=== PATIENT | female | born 1935 | race Caucasian/White ===

== ENCOUNTER 2016-09-09 21:15 | Inpatient (IN) | payer MEDICARE ==
[2016-09-09] MEDS ORDERED: ONDANSETRON HCL IV 4 MG/2 ML VIAL IVP ONE (21:35)
[2016-09-09] MEDS ORDERED: 0.9 % SODIUM CHLORIDE 1,000 ML BAG IV ONE (21:35)
--- NOTE | 2016-09-09 21:36 | Emergency Department Record ---
History of Present Illness - General Chief Complaint: Fall Injury Stated Complaint: FALL INJURY Time Seen by Provider: 09/09/16 21:21 Source: Patient Mode of Arrival: Ambulatory Limitations: No limitations - History of Present Illness Initial Comments: 81 yo female presents after a fall at [facility]. She was in the bathroom and loosed her balance. No LOC. She did hit the back of her head and has a superficial abrasion on the back. She denies pain. She states she has not felt well today. She has had some diarrhea and vomiting. No fever. No chest pain or cough. No shortness of breath. She denies any abdominal pain. Complaint: Fall Onset/Timin -: Minutes(s) Fall From: Standing Fall Witnessed: No Place Fall Occurred: alf/SNF Loss of Consciousness: None Prolonged Down Time?: No Symptoms Prior to Fall: None Location: Back Context: Recent illness Associated Symptoms: Denies - Kin Coma Scale Eye Response: (4) Open spontaneously Motor Response: (6) Obeys commands Verbal Response: (5) Oriented Kin Total: 15 - Related Data Home Medications Medication Instructions Recorded Confirmed Last Taken Aspirin [Aspir 81] 81 mg PO DAILY tab. 09/22/15 09/09/16 09/09/16 Amlodipine Besylate [Norvasc] 5 mg PO DAILY 09/09/16 09/09/16 09/09/16 Calcium Carbonate/Vitamin D3 1 each PO DAILY 09/09/16 09/09/16 09/09/16 [Oysco 500-Vit D3 200 Tablet] Escitalopram Oxalate [Lexapro] 20 mg PO DAILY 09/09/16 09/09/16 09/09/16 Valsartan 320 mg PO DAILY 09/09/16 09/09/16 09/09/16 Allergies Allergy/AdvReac Type Severity Reaction Status Date / Time Penicillins [PENICILLINS] Allergy Unknown PT UNSURE Verified 09/09/16 21:19 OF REACTION levofloxacin [LEVOFLOXACIN] AdvReac Unknown PAIN IN Verified 09/09/16 21:19 LEGS, UNABLE TO WALK Travel Screening - Travel/Exposure Within Last 30 Days Have you traveled within the last 30 days?: No - Travel Symptoms Symptom Screening: None Review of Systems Constitutional: Denies: Chills, Fever, Malaise, Weakness Eyes: Denies: Eye discharge, Eye pain, Photophobia, Vision change ENT: Denies: Congestion, Throat pain Respiratory: Denies: Cough, Dyspnea, Hemoptysis, Stridor, Wheezes Cardiovascular: Denies: Chest pain, Palpitations, Syncope Endocrine: Denies: Fatigue Gastrointestinal: Reports: Diarrhea, Nausea, Vomiting. Denies: Abdominal pain, Constipation, Hematemesis, Hematochezia, Melena Genitourinary: Denies: Dysuria, Frequency, Urgency Musculoskeletal: Denies: Arthralgia, Back pain, Neck pain Skin: Denies: Bruising, Change in color, Rash Neurological: Reports: Headache. Denies: Abnormal gait, Confusion, Numbness, Tingling, Vertigo, Weakness Psychiatric: Denies: Anxiety Hematological/Lymphatic: Denies: Blood Clots, Easy bleeding, Easy bruising, Swollen glands Past Medical History - SOCIAL HISTORY Smoking Status: Never smoker - RESPIRATORY Hx Respiratory Disorders: No - CARDIOVASCULAR Hx Cardio Disorders: Yes Hx Hypertension: Yes - NEURO Hx Neuro Disorders: Yes Comment:: Bels Palsy; Hydrocephalus; ataxic gait; - GI Hx GI Disorders: No - Hx Genitourinary Disorders: No - ENDOCRINE Hx Endocrine Disorders: No - MUSCULOSKELETAL Hx Musculoskeletal Disorders: Yes Hx Arthritis: Yes (polyosteoarthritis; osteoporosis) Comment:: pathological fxs - PSYCH Hx Psych Problems: Yes Hx Anxiety: Yes - HEMATOLOGY/ONCOLOGY Hx Hematology/Oncology Disorders: No Family Medical History Any Significant Family History?: No Family Hx Comment (NOT TO BE USED IN PLACE OF ITEMS BELOW): unknown Physical Exam - General General Appearance: Alert, Oriented x3, Cooperative, No acute distress, Other ( facial droop noted (chronic per son)) Limitations: No limitations, Other (At baseline per son. Patient is alert, conversational) - Head Head exam: Atraumatic, Normocephalic, Normal inspection - Eye Eye exam: Normal appearance, PERRL. negative: Conjunctival injection, Periorbital swelling - ENT ENT exam: Normal exam, Mucous membranes moist. negative: Normal orophraynx Ear exam: Normal external inspection Nasal Exam: Normal inspection Mouth exam: Normal external inspection Teeth exam: Normal inspection Throat exam: Normal inspection - Neck Neck exam: Normal inspection, Full ROM. negative: Tenderness - Respiratory Respiratory exam: Normal lung sounds bilaterally. negative: Respiratory distress, Rhonchi, Stridor, Wheezes - Cardiovascular Cardiovascular Exam: Regular rate, Normal rhythm, Normal heart sounds - GI/Abdominal GI/Abdominal exam: Soft. negative: Diminished bowel sounds, Distended, Rigid, Tenderness - Rectal Rectal exam: Deferred - exam: Deferred - Extremities Extremities exam: Normal inspection, Full ROM, Normal capillary refill. negative: Calf tenderness, Joint swelling, Pedal edema, Tenderness Image of Full Body: 1 - superficial abrasion, non tender, no rib or flank tenderness - Back Back exam: Reports: Normal inspection, Full ROM. Denies: CVA tenderness (R), CVA tenderness (L), Muscle spasm, Paraspinal tenderness, Rash noted, Tenderness , Vertebral tenderness - Neurological Neurological exam: Alert, Normal gait, Oriented X3, Reflexes normal. negative: Altered, CN II-XII intact (facial droop, chronic and at baseline) - Psychiatric Psychiatric exam: Normal affect, Normal mood. negative: Agitated, Anxious, Depressed - Skin Skin exam: Dry, Intact, Normal color, Warm Course Vital Signs 09/09/16 21:20 Temperature 98.1 F Pulse Rate 103 H Respiratory 18 Rate Blood Pressure 128/57 Pulse Ox 93 L - Reevaluation(s) Reevaluation #1: The CT scan of the Cervical spine was negative for acute process except degenerative changes The HCT demonstrates her [facility] shunt with mild hydrocephalus ( Comparison CT scan from 06/24/16 at [facility] demonstrated prominence of the ventricles at that time as well including the lateral and 3rd that was unchanged from 04/2014. Indicating likely no changes on today's CT compared to prior. No interval changes to suggest a shunt change or malfunction.) The US demonstrates LE, WBC 3-6 and Bacteria 09/09/16 21:35 09/09/16 22:52 09/09/16 23:35 Reevaluation #2: The liver enzymes were reviewed AST is 399 ALT is 183 Bili is 2.0 Alk Phos is 399 The patient no longer has a gallbladder. She does not have any abdominal pain. She has had vomiting and some diarrhea. The patient will be admitted overnight for hydration and recheck the labs in the AM. She does not have any abdominal pain to suggest acute abdominal process. Liver enzymes 06/2016 were normal during a [facility] ED visit. The son states the patient appears well tonight. She does not have any symptoms that differ from her baseline. The patient herself states she feels well and is ready to go home. I explained that after hydration and a recheck of the labs a decision could be made then. No altered mental status or signs of acute shunt malfunction. In review of her medications the amlodipine and the valsartan have hepatitis listed as adverse reactions and will be held She will be given rocephin for her UTI 09/09/16 23:00 09/09/16 23:03 09/09/16 23:36 09/09/16 23:41 Reevaluation #3: At this time the patient has no nausea, no diarrhea and no pain. The mild headache from the fall is completely gone. She has chronic neck pain that is still present. No abdominal pain. 09/10/16 00:05 Reevaluation #4: I discussed the case with Norma Hartley regarding admission. 09/10/16 07:09 Medical Decision Making - Lab Data Result diagrams: 09/10/16 05:20 09/09/16 21:45 Disposition Disposition: Admit Clinical Impression: Vomiting and diarrhea, Dehydration, Elevated liver enzymes UTI (urinary tract infection) Qualifiers: Urinary tract infection type: site unspecified Hematuria presence: without hematuria Qualified Code(s): N39.0 - Urinary tract infection, site not specified Disposition: Still a Patient at [facility] Decision to Admit: Admit from ER Decision to Admit Date: 09/09/16 Decision to Admit Time: 23:02 Condition: (1) Good Time of Disposition: 23:02
[2016-09-09] MEDS ORDERED: ACETAMINOPHEN 325 MG TAB PO ONE (21:46)
[2016-09-09 22:08] LABS: URINE APPEARANCE CLEAR; URINE BILIRUBIN NEGATIVE (NEGATIVE); URINE BLOOD TRACE-I (NEGATIVE); URINE COLOR YELLOW; URINE GLUCOSE (UA) NEGATIVE (NEGATIVE); URINE KETONE NEGATIVE (NEGATIVE); URINE LEUKOCYTE ESTERASE TRACE (NEGATIVE); URINE NITRITE NEGATIVE (NEGATIVE); URINE PROTEIN NEGATIVE (NEGATIVE); URINE UROBILINOGEN 0.2 E.U./dL (0.20 - 1.00)
[2016-09-09 22:08] LABS: BASO % 0.2 % (0-6); EOS % 0.3 % (0-6); HEMATOCRIT 42.8 % (35.0-47.0); HEMOGLOBIN 13.4 gm/dl (11.6-16.0); LYMPH % 6.8 % (16-45); MEAN CELL VOLUME 92.6 fl (81-97); MEAN CORPUSCULAR HGB CONC 31.3 g/dl (32-36); MONO % 7.6 % (0-9); PLATELET COUNT 199 K/uL (130-400); RED BLOOD COUNT 4.62 M/uL (3.80-5.40); RED CELL DISTRIBUTION WIDTH 13.2 % (11.5-14.5); WHITE BLOOD COUNT W/O DIFF 6.2 K/uL (4.2-12.2)
[2016-09-09 22:18] LABS: URINE AMORPHOUS SEDIMENT 2+; URINE BACTERIA 1+; URINE EPITHELIAL CELLS 0 - 2 (FEW)
[2016-09-09 22:22] LABS: ALB/GLOB RATIO 1.2 (1.1-1.8); ANION GAP 7.7 (7-16); BILIRUBIN,TOTAL 2.07 mg/dL (0.2-1.3); CARBON DIOXIDE 28.3 mmol/L (22-30); CREATININE 1.1 mg/dL (0.52-1.04); TOTAL PROTEIN 7.3 gm/dL (6.3-8.2)
[2016-09-10] MEDS ORDERED: ONDANSETRON HCL IV 4 MG/2 ML VIAL IVP PRN (00:10)
[2016-09-10] MEDS ORDERED: CEFTRIAXONE SODIUM 1 GM in 0.9 % SODIUM CHLORIDE 100ML 100 ML IVPB SCH (00:10)
[2016-09-10] MEDS ORDERED: ESCITALOPRAM OXALATE 10 MG PO SCH (00:10)
[2016-09-10] MEDS ORDERED: 0.9 % SODIUM CHLORIDE 1000ML 1,000 ML IV PRN (00:10)
[2016-09-10 06:21] LABS: HEMATOCRIT 35.1 % (35.0-47.0); HEMOGLOBIN 11.1 gm/dl (11.6-16.0); MEAN CELL VOLUME 94.1 fl (81-97); MEAN CORPUSCULAR HGB CONC 31.6 g/dl (32-36); MEAN PLATELET VOLUME 11.4 fl (7.4-10.4); PLATELET COUNT 190 K/uL (130-400); RED BLOOD COUNT 3.73 M/uL (3.80-5.40); RED CELL DISTRIBUTION WIDTH 13.2 % (11.5-14.5); WHITE BLOOD COUNT W/O DIFF 8.8 K/uL (4.2-12.2)
[2016-09-10 06:32] LABS: ALBUMIN 3.2 gm/dL (3.5-5.0); BILIRUBIN,DIRECT 0.4 mg/dL (0-0.3); BILIRUBIN,TOTAL 2.29 mg/dL (0.2-1.3)
[2016-09-10 06:39] LABS: MEAN CORPUSCULAR HEMOGLOBIN 29.7 pg (27-33)
[2016-09-10 09:18] LABS: AMYLASE 36 U/L (30-110); LIPASE 135 U/L (23-300)
[2016-09-10 09:51] LABS: THYROID STIMULATING HORMONE 0.52 uIU/ml (0.465-4.68)
[2016-09-10] MEDS: TRAMADOL HCL 50 MG TABLET PO PRN ×3 (10:28→20:30)
[2016-09-10] MEDS: CALCIUM CARB/VITAMIN D 500MG/200IU PO SCH (11:46)
[2016-09-10] MEDS: ASPIRIN 81 MG TABEC PO SCH (11:47)
[2016-09-10] MEDS: ESCITALOPRAM 10 MG TABLET PO SCH (11:47)
[2016-09-10] MEDS ORDERED: TRAMADOL HCL 50 MG TABLET PO PRN (11:58)
[2016-09-10] MEDS: TMP/SMZ 160MG/800MG TAB PO SCH ×2 (12:13→21:27)
--- NOTE | 2016-09-10 13:18 | History & Physical ---
History of Present Illness - Date of Service Date of Service for History & Physical: 09/10/16 - History of Present Illness Admitting Diagnosis: Dehydration, elevated liver enzymes, vomiting and diarrhea History of Present Illness: 81 yo female admitted UTI, dehydration and elevated hepatic profile. PMHx of bells palsy, hydrocephalus s/p shunt placement at [facility] 3 years ago, previous smoker (quit 35 years ago), acid reflux, HTN, depression, osteopenia, h /o elevated LFTs in 2013. History obtained from patient, son at bedside. Patient brought to our ED after experiencing a fall at [facility]. Patient states she felt weak and shaky prior to standing up yesterday. In addition, she felt sick to her stomach and got up to walk herself to the restroom to throw up. After vomiting, patient fell back and hit her head. Upon presentation to the ED, temp 98.1, HR 103, RR 18, BP 128/57, pulse ox 93% RA. WBC 6.2, hgb 13.4, hct 42.8 , plt 190, potassium 3.4, BUN 18, Cr. 1.1, glucose 111, total bili 2.07 (direct 0.4), alk phos 399, AST 399, ALT 183, normal amylase/lipase, UA: trace leuks, 1+bacteria, cervical spine CT: osteopenia, no fx, head CT: ventricular shunt, no fx/infarct. She was given a dose of Tylenol in the ED along with 1 gm of IV Rocephin. Patient admitted for further medical management. 09/10/16: this morning, pt is lying in bed comfortably with son at bedside. She states she feels better this morning, however she has quite a headache. severity 8/10. She states she frequently gets headaches. I spoke w/ the nursing facility and patient was receiving 500 mg of PO Tylenol a few times daily up until last week for headaches. Staff states that patient's PCP discontinued her Tylenol order. Patient denies any h/o elevated liver enzymes or h/o liver disease. Per patient's chart, she did appear to have slightly elevated LFTs in 2012, however these normalized. She denies any h/o etoh abuse. no h/o IV drug use. She's never been told she had any form of hepatitis. She follows with Dr. Padilla for chronic diarrhea. Last colonoscopy was in 2013 which was relatively unremarkable. Patient states she was well yesterday, however later in the day began feeling sick to her stomach. She experienced a few episodes of diarrhea and then an episode of vomiting prior to her arrival to our ED. Pt's son states that his mother fell back in June. She was taken to [facility], had a negative CT per son and was discharged back to her nursing facility. Patient reports chills yesterday evening. No SOB, CP, fever, abdominal pain, constipation, dysuria, hematuria, blood in stool or vomit, extremity weakness, vision changes, confusion, lightheadedness or dizziness. No recent sick contacts or antibiotic use. no recent travel. PCP: Dr. Alberto Neurologist: Dr. Hilliard Travel Screening - Travel/Exposure Within Last 30 Days Have you traveled within the last 30 days?: No - Travel/Exposure Within Last Year Have you traveled outside the [place] in the last year?: No - Additonal Travel Details Have you been exposed to anyone with a communicable illness?: No - Travel Symptoms Symptom Screening: None Review of Systems Constitutional: Denies: Chills, Fever, Malaise, Weakness Eyes: Denies: Eye discharge, Eye pain, Photophobia, Vision change ENT: Denies: Congestion, Throat pain Respiratory: Denies: Cough, Dyspnea, Hemoptysis, Stridor, Wheezes Cardiovascular: Denies: Chest pain, Palpitations, Syncope Endocrine: Denies: Fatigue Gastrointestinal: Denies: Abdominal pain, Constipation, Diarrhea, Hematemesis, Hematochezia, Melena, Nausea, Vomiting Genitourinary: Denies: Dysuria, Frequency, Urgency Musculoskeletal: Denies: Arthralgia, Back pain, Neck pain Skin: Denies: Bruising, Change in color, Rash Neurological: Reports: Headache. Denies: Abnormal gait, Confusion, Numbness, Tingling, Vertigo, Weakness Psychiatric: Denies: Anxiety Hematological/Lymphatic: Denies: Blood Clots, Easy bleeding, Easy bruising, Swollen glands Past Medical History - SOCIAL HISTORY Smoking Status: Former smoker - RESPIRATORY Hx Respiratory Disorders: No - CARDIOVASCULAR Hx Cardio Disorders: Yes Hx Hypertension: Yes - NEURO Hx Neuro Disorders: Yes Comment:: Bels Palsy; Hydrocephalus; ataxic gait; - GI Hx GI Disorders: No - Hx Genitourinary Disorders: No - ENDOCRINE Hx Endocrine Disorders: No - MUSCULOSKELETAL Hx Musculoskeletal Disorders: Yes Hx Arthritis: Yes (polyosteoarthritis; osteoporosis) Comment:: pathological fxs - PSYCH Hx Psych Problems: Yes Hx Anxiety: Yes - HEMATOLOGY/ONCOLOGY Hx Hematology/Oncology Disorders: No Family Medical History Any Significant Family History?: No Family Hx Comment (NOT TO BE USED IN PLACE OF ITEMS BELOW): unknown H&P Meds/Allergies - Allergies Allergies: Allergies Allergy/AdvReac Type Severity Reaction Status Date / Time Penicillins [PENICILLINS] Allergy Unknown PT UNSURE Verified 09/09/16 21:19 OF REACTION levofloxacin [LEVOFLOXACIN] AdvReac Unknown PAIN IN Verified 09/09/16 21:19 LEGS, UNABLE TO WALK - Home Medications Home Medications Medication Instructions Recorded Confirmed Last Taken Aspirin [Aspir 81] 81 mg PO DAILY tab 09/22/15 09/09/16 09/09/16 Amlodipine Besylate [Norvasc] 5 mg PO DAILY 09/09/16 09/09/16 09/09/16 Calcium Carbonate/Vitamin D3 1 each PO DAILY 09/09/16 09/09/16 09/09/16 [Oysco 500-Vit D3 200 Tablet] Escitalopram Oxalate [Lexapro] 20 mg PO DAILY 09/09/16 09/09/16 09/09/16 Valsartan 320 mg PO DAILY 09/09/16 09/09/16 09/09/16 - Active Medications Active Medications: Current Medications Aspirin (Ecotrin (Ec)) 81 mg PO DAILY [facility] Last Admin: 09/10/16 11:47 Dose: 81 mg Calcium/Vitamin D (Calcium 500+D Tablet) 1 tab PO DAILY [facility] Last Admin: 09/10/16 11:46 Dose: 1 tab Escitalopram Oxalate (Lexapro) 20 mg PO DAILY [facility] Last Admin: 09/10/16 11:47 Dose: 20 mg Sodium Chloride () 1,000 mls @ 125 mls/hr IV .Q8H PRN PRN Reason: LARGE VOLUME IV Last Admin: 09/10/16 01:06 Dose: 125 mls/hr Ondansetron HCl (Zofran) 4 mg IVP Q4H PRN PRN Reason: NAUSEA Tramadol HCl (Ultram) 100 mg PO Q12H PRN PRN Reason: HEADACHE Tramadol HCl (Ultram) 50 mg PO Q12H PRN PRN Reason: HEADACHE Trimethoprim/Sulfamethoxazole (Bactrim Ds) 1 each PO BID [facility] Last Admin: 09/10/16 12:13 Dose: 1 each Physical Exam - Vital Signs Vital Signs: Vital Signs - Last 24 Hrs Temp Pulse Pulse Resp BP BP Pulse Ox 09/10/16 09:30 98.7 F 70 16 144/68 93 L 09/10/16 09:00 70 16 09/10/16 05:00 97.9 F 64 16 108/58 98 09/10/16 00:00 98.6 F 89 16 108/70 93 L - General General Appearance: Alert, Oriented x3, Cooperative, No acute distress, Other ( facial droop noted (chronic per son)) Limitations: No limitations, Other (At baseline per son. Patient is alert, conversational) - Head Head exam: Atraumatic, Normocephalic, Normal inspection - Eye Eye exam: Normal appearance, PERRL. negative: Conjunctival injection, Periorbital swelling - ENT ENT exam: Normal exam, Mucous membranes moist. negative: Normal orophraynx Ear exam: Normal external inspection Nasal Exam: Normal inspection Mouth exam: Normal external inspection Teeth exam: Normal inspection Throat exam: Normal inspection - Neck Neck exam: Normal inspection, Full ROM. negative: Tenderness - Respiratory Respiratory exam: Normal lung sounds bilaterally. negative: Respiratory distress, Rhonchi, Stridor, Wheezes - Cardiovascular Cardiovascular Exam: Regular rate, Normal rhythm, Normal heart sounds - GI/Abdominal GI/Abdominal exam: Soft. negative: Diminished bowel sounds, Distended, Rigid, Tenderness - Rectal Rectal exam: Deferred - exam: Deferred - Extremities Extremities exam: Normal inspection, Full ROM, Normal capillary refill. negative: Calf tenderness, Joint swelling, Pedal edema, Tenderness - Back Back exam: Reports: Normal inspection, Full ROM. Denies: CVA tenderness (R), CVA tenderness (L), Muscle spasm, Paraspinal tenderness, Rash noted, Tenderness , Vertebral tenderness - Neurological Neurological exam: Alert, Normal gait, Oriented X3, Reflexes normal. negative: Altered, CN II-XII intact (facial droop, chronic and at baseline) - Psychiatric Psychiatric exam: Normal affect, Normal mood. negative: Agitated, Anxious, Depressed - Skin Skin exam: Dry, Intact, Normal color, Warm Results - Labs Result Diagrams: 09/10/16 05:20 09/09/16 21:45 Labs Last 24 Hours: Laboratory Results - last 24 hr 09/10/16 09/10/16 09/10/16 05:20 05:20 05:20 WBC 8.8 RBC 3.73 L Hgb 11.1 L Hct 35.1 MCV 94.1 MCH 29.7 MCHC 31.6 L RDW 13.2 Plt Count 190 MPV 11.4 H Neutrophils % 85.0 H Lymphocytes % 5.0 L Monocytes % 10.0 H Eosinophils % Not Reportable Basophils % Not Reportable Iron TIBC % Saturation Ferritin Total Bilirubin 2.29 H Direct Bilirubin 0.4 H AST 422 H ALT 246 H Alkaline Phosphatase 258 H Total Protein 6.0 L Albumin 3.2 L Amylase Lipase 137 TSH 09/10/16 09/10/16 06:00 06:00 WBC RBC Hgb Hct MCV MCH MCHC RDW Plt Count MPV Neutrophils % Lymphocytes % Monocytes % Eosinophils % Basophils % Iron 21 L TIBC 271 % Saturation 7 L Ferritin 200 Total Bilirubin Direct Bilirubin AST ALT Alkaline Phosphatase Total Protein Albumin Amylase 36 Lipase 135 TSH 0.52 VTE H&P Assessment - Risk for VTE Risk for VTE: Yes Risk Level: Low Risk Assessment Date: 09/10/16 Risk Assessment Time: 11:00 VTE Orders Placed or Will Be Placed: Yes Plan - Detailed Diagnosis and Plan (1) Dehydration Current Visit: Yes Status: Acute Base Code: E86.0 - DEHYDRATION Comment: 09/10/16: i suspect related to diarrhea/vomiting. - IVFs - electrolyte replacement if necessary - anti emetic prn for nausea (2) Elevated liver enzymes Current Visit: Yes Status: Acute Base Code: R74.8 - ABNORMAL LEVELS OF OTHER SERUM ENZYMES Comment: 09/10/16: medications vs. viral vs. other? s/p garry, no abdominal pain , no jaundice - hepatic work up ordered - abd u/s - GI consult - avoid liver harming agents (3) UTI (urinary tract infection) Current Visit: Yes Status: Acute Qualifiers: Urinary tract infection type: site unspecified Hematuria presence: without hematuria Qualified Code(s): N39.0 - Urinary tract infection, site not specified Base Code: N39.0 - URINARY TRACT INFECTION, SITE NOT SPECIFIED Comment: 09/10/16: UA trace leuks, +1 bacteria. normal WBC, afebrile. Denies dysuria, hematuria, abdominal pain. - Will change Rocephin IV to PO Bactrim noting elevated hepatic profile (4) Vomiting and diarrhea Current Visit: Yes Status: Acute Base Code: R11.10 - VOMITING, UNSPECIFIED; R19.7 - DIARRHEA, UNSPECIFIED Comment: 09/10/16: possible gastroenteritis vs. other? - No nausea or vomiting since prior to arrival to the ED. - will continue to monitor symptoms - monitor electrolytes - IVFs (5) DVT prophylaxis Current Visit: Yes Status: Acute Base Code: [id number] - Comment: 09/10/16: low risk. SCD's while in bed. (6) Full code status Current Visit: Yes Status: Acute Base Code: Z78.9 - OTHER SPECIFIED HEALTH STATUS Comment: 09/10/16: patient will remain full code during hospitalization
[2016-09-11 06:31] LABS: BASO % 0.2 % (0-6); EOS % 0.5 % (0-6); GRAN % 77.2 % (47-80); HEMATOCRIT 39.1 % (35.0-47.0); HEMOGLOBIN 12.2 gm/dl (11.6-16.0); LYMPH % 11.3 % (16-45); MEAN CELL VOLUME 94.2 fl (81-97); MEAN CORPUSCULAR HEMOGLOBIN 29.4 pg (27-33); MEAN CORPUSCULAR HGB CONC 31.2 g/dl (32-36); MEAN PLATELET VOLUME 11.3 fl (7.4-10.4); MONO % 10.8 % (0-9); PLATELET COUNT 171 K/uL (130-400); RED BLOOD COUNT 4.15 M/uL (3.80-5.40); RED CELL DISTRIBUTION WIDTH 13.3 % (11.5-14.5); WHITE BLOOD COUNT W/O DIFF 6.5 K/uL (4.2-12.2)
[2016-09-11 06:37] LABS: INR 1.05; PROTHROMBIN TIME (PATIENT) 11.9 SECONDS (9.5-12.1)
[2016-09-11 06:38] LABS: ALB/GLOB RATIO 1.1 (1.1-1.8); ALBUMIN 3.5 gm/dL (3.5-5.0); ALKALINE PHOSPHATASE 288 U/L (38-126); ALT/SGPT 195 U/L (9-52); ANION GAP 10.3 (7-16); AST/SGOT 177 U/L (14-36); BILIRUBIN,TOTAL 2.86 mg/dL (0.2-1.3); BLOOD UREA NITROGEN 12 mg/dL (7-17); CARBON DIOXIDE 23.7 mmol/L (22-30); CREATININE 0.9 mg/dL (0.52-1.04); EST GLOMERULAR FILTRATION RATE > 60 ml/min; GLUCOSE,RANDOM 92 mg/dL (70-110); TOTAL PROTEIN 6.6 gm/dL (6.3-8.2)
[2016-09-11] MEDS ORDERED: POTASSIUM CHLORIDE 20 MEQ TABLET PO ONE (10:50)
[2016-09-11] MEDS ORDERED: 0.9 % SODIUM CHLORIDE 1000ML 1,000 ML IV PRN (10:50)
--- NOTE | 2016-09-11 10:53 | Physician Progress Note ---
Subjective - Date Date of Physician Progress Note: 09/11/16 - Subjective Subjective Comment: lying in bed comfortably states she's feeling better tolerated breakfast this am normal bowel movement no n/v, diarrhea, fever, or chills no additional concerns at this time Objective - Vital Signs Vital Signs: Vital Signs - Last 24 Hrs Temp Pulse Resp BP BP Pulse Ox 09/11/16 08:12 97.8 F 75 16 132/70 92 L 09/10/16 20:00 99.2 F 74 18 143/70 93 L 09/10/16 17:00 98.6 F 72 16 130/63 92 L 09/10/16 16:00 98.7 F 144/68 - General General Appearance: Alert, Oriented x3, Cooperative, No acute distress, Other ( facial droop noted (chronic per son)) Limitations: No limitations, Other (At baseline per son. Patient is alert, conversational) - Head Head exam: Atraumatic, Normocephalic, Normal inspection - Eye Eye exam: Normal appearance, PERRL. negative: Conjunctival injection, Periorbital swelling - ENT ENT exam: Normal exam, Mucous membranes moist. negative: Normal orophraynx Ear exam: Normal external inspection Nasal Exam: Normal inspection Mouth exam: Normal external inspection Teeth exam: Normal inspection Throat exam: Normal inspection - Neck Neck exam: Normal inspection, Full ROM. negative: Tenderness - Respiratory Respiratory exam: Normal lung sounds bilaterally. negative: Respiratory distress, Rhonchi, Stridor, Wheezes - Cardiovascular Cardiovascular Exam: Regular rate, Normal rhythm, Normal heart sounds - GI/Abdominal GI/Abdominal exam: Soft. negative: Diminished bowel sounds, Distended, Rigid, Tenderness - Rectal Rectal exam: Deferred - exam: Deferred - Extremities Extremities exam: Normal inspection, Full ROM, Normal capillary refill. negative: Calf tenderness, Joint swelling, Pedal edema, Tenderness - Back Back exam: Reports: Normal inspection, Full ROM. Denies: CVA tenderness (R), CVA tenderness (L), Muscle spasm, Paraspinal tenderness, Rash noted, Tenderness , Vertebral tenderness - Neurological Neurological exam: Alert, Normal gait, Oriented X3, Reflexes normal. negative: Altered, CN II-XII intact (facial droop, chronic and at baseline) - Psychiatric Psychiatric exam: Normal affect, Normal mood. negative: Agitated, Anxious, Depressed - Skin Skin exam: Dry, Intact, Normal color, Warm Assessment and Plan - Inpatient Certification Inpatient Certification: risk factors: elevated liver enzymes, fatigue, weakness, decreased appetite, electrolyte abnormality, dehydration, urinary infection treatment: antibiotics, liver work up, liver specialist evaluation, ultrasound stay: 2-3 nights d/c plan: back to nursing facility. 09/11/16 10:51 - Assessment and Plan (1) Dehydration Current Visit: Yes Status: Acute Base Code: E86.0 - DEHYDRATION Comment: 09/11/16: i suspect related to diarrhea/vomiting. - gentle IV hydration - 20 mEq of potassium chloride today - anti emetic prn for nausea (2) Elevated liver enzymes Current Visit: Yes Status: Acute Base Code: R74.8 - ABNORMAL LEVELS OF OTHER SERUM ENZYMES Comment: 09/11/16: medications vs. viral vs. other? s/p garry, no abdominal pain , no jaundice. hepatic profile slightly improved. - hepatic work up ordered - abd u/s monday - GI consult - avoid liver harming agents (3) UTI (urinary tract infection) Current Visit: Yes Status: Acute Qualifiers: Urinary tract infection type: site unspecified Hematuria presence: without hematuria Qualified Code(s): N39.0 - Urinary tract infection, site not specified Base Code: N39.0 - URINARY TRACT INFECTION, SITE NOT SPECIFIED Comment: 09/11/16: UA trace leuks, +1 bacteria. normal WBC, afebrile. Denies dysuria, hematuria, abdominal pain. - Will change Rocephin IV to PO Bactrim noting elevated hepatic profile (4) Vomiting and diarrhea Current Visit: Yes Status: Acute Base Code: R11.10 - VOMITING, UNSPECIFIED; R19.7 - DIARRHEA, UNSPECIFIED Comment: 09/11/16: resolved (5) DVT prophylaxis Current Visit: Yes Status: Acute Base Code: [id number] - Comment: 09/11/16: low risk. SCD's while in bed. (6) Full code status Current Visit: Yes Status: Acute Base Code: Z78.9 - OTHER SPECIFIED HEALTH STATUS Comment: 09/11/16: patient will remain full code during hospitalization Results - Labs Result Diagrams: 09/11/16 05:15 09/11/16 05:15 Labs Last 24 Hours: Laboratory Results - last 24 hr 09/11/16 09/11/16 09/11/16 05:15 05:15 05:15 WBC 6.5 RBC 4.15 Hgb 12.2 Hct 39.1 MCV 94.2 MCH 29.4 MCHC 31.2 L RDW 13.3 Plt Count 171 MPV 11.3 H Gran % 77.2 Lymphocytes % 11.3 L Monocytes % 10.8 H Eosinophils % 0.5 Basophils % 0.2 PT 11.9 INR 1.05 Sodium 138 Potassium 3.4 L Chloride 104 Carbon Dioxide 23.7 Anion Gap 10.3 BUN 12 Creatinine 0.9 Estimated GFR > 60 Random Glucose 92 Calcium 9.0 Total Bilirubin 2.86 H AST 177 H ALT 195 H Alkaline Phosphatase 288 H Total Protein 6.6 Albumin 3.5 Globulin 3.1 Albumin/Globulin Ratio 1.1 DVT/PE Assessment - Risk for VTE Risk for VTE: No Risk Level: Low Risk Assessment Date: 09/10/16 Risk Assessment Time: 11:00 VTE Orders Placed or Will Be Placed: Yes - Active Medicaitons Current Medications: Current Medications Aspirin (Ecotrin (Ec)) 81 mg PO DAILY [facility] Last Admin: 09/10/16 11:47 Dose: 81 mg Calcium/Vitamin D (Calcium 500+D Tablet) 1 tab PO DAILY [facility] Last Admin: 09/10/16 11:46 Dose: 1 tab Escitalopram Oxalate (Lexapro) 20 mg PO DAILY [facility] Last Admin: 09/10/16 11:47 Dose: 20 mg Sodium Chloride () 1,000 mls @ 125 mls/hr IV .Q8H PRN PRN Reason: LARGE VOLUME IV Last Admin: 09/10/16 01:06 Dose: 125 mls/hr Ondansetron HCl (Zofran) 4 mg IVP Q4H PRN PRN Reason: NAUSEA Tramadol HCl (Ultram) 100 mg PO Q12H PRN PRN Reason: HEADACHE Tramadol HCl (Ultram) 50 mg PO Q12H PRN PRN Reason: HEADACHE Last Admin: 09/10/16 20:30 Dose: 50 mg Trimethoprim/Sulfamethoxazole (Bactrim Ds) 1 each PO BID [facility] Last Admin: 09/10/16 21:27 Dose: 1 each AMI Plan - Labs Result Diagrams: 09/11/16 05:15 09/11/16 05:15
[2016-09-11] MEDS: TMP/SMZ 160MG/800MG TAB PO SCH ×2 (11:18→21:32)
[2016-09-11] MEDS: CALCIUM CARB/VITAMIN D 500MG/200IU PO SCH (11:18)
[2016-09-11] MEDS: ESCITALOPRAM 10 MG TABLET PO SCH (11:19)
[2016-09-11] MEDS: ASPIRIN 81 MG TABEC PO SCH (11:20)
[2016-09-11] MEDS: TRAMADOL HCL 50 MG TABLET PO PRN (20:23)
[2016-09-12 06:47] LABS: BASO % 0.3 % (0-6); GRAN % 65.8 % (47-80); HEMATOCRIT 37.9 % (35.0-47.0); LYMPH % 17.5 % (16-45); MEAN CELL VOLUME 93.1 fl (81-97); MEAN CORPUSCULAR HEMOGLOBIN 29.5 pg (27-33); MEAN CORPUSCULAR HGB CONC 31.7 g/dl (32-36); MEAN PLATELET VOLUME 12.3 fl (7.4-10.4); MONO % 14.4 % (0-9); PLATELET COUNT 114 K/uL (130-400); RED BLOOD COUNT 4.07 M/uL (3.80-5.40)
[2016-09-12 07:10] LABS: ALB/GLOB RATIO 1.1 (1.1-1.8); ALBUMIN 3.3 gm/dL (3.5-5.0); ALKALINE PHOSPHATASE 239 U/L (38-126); ALT/SGPT 124 U/L (9-52); ANION GAP 8.8 (7-16); AST/SGOT 87 U/L (14-36); BILIRUBIN,TOTAL 1.37 mg/dL (0.2-1.3); BLOOD UREA NITROGEN 13 mg/dL (7-17); CARBON DIOXIDE 23.2 mmol/L (22-30); CREATININE 0.9 mg/dL (0.52-1.04); EST GLOMERULAR FILTRATION RATE > 60 ml/min; GLUCOSE,RANDOM 88 mg/dL (70-110); TOTAL PROTEIN 6.3 gm/dL (6.3-8.2)
--- NOTE | 2016-09-12 07:31 | CT SCAN REPORT ---
EXAM: CT OF THE HEAD WITHOUT CONTRAST HISTORY: FELL AND HIT BACK OF HEAD. TECHNIQUE: Routine noncontrast CT examination of the head was performed. Comparison: CT of the head without contrast dated 02/20/13. FINDINGS: There has been interval placement of a ventriculoperitoneal shunt via a right parietal approach. The shunt enters the right lateral ventricle at the level of the atrium and the shunt tip is located in the posterior portion of the left lateral ventricle body. Moderate ventriculomegaly persists and there is moderate subarachnoid space dilatation. Moderate periventricular and subcortical white matter lucencies are scattered in each cerebral hemisphere. These are nonspecific, but likely areas of chronic small vessel ischemia. No other area of abnormally increased or decreased attenuation is noted throughout the brain substance. No abnormal extraaxial fluid collection is seen. No skull fracture is visualized. The visualized paranasal sinuses and mastoid air cells are grossly clear though right mastoidectomy changes are again identified with minor fluid signal and a few inferior right mastoid air cells consistent with retained secretions or mild inflammation. IMPRESSION: 1. INTERVAL PLACEMENT OF A VENTRICULOPERITONEAL SHUNT VIA A RIGHT PARIETAL CRANIOTOMY, DESCRIBED ABOVE. 2. GENERALIZED ATROPHY WITH MODERATE VENTRICULOMEGALY REDEMONSTRATED. 3. MODERATE WHITE MATTER LUCENCIES AGAIN NOTED IN EACH CEREBRAL HEMISPHERE. THESE ARE NONSPECIFIC, BUT LIKELY AREAS OF CHRONIC SMALL VESSEL ISCHEMIA. 4. NO CT EVIDENCE OF ACUTE MAJOR VESSEL INFARCT, INTRACRANIAL HEMORRHAGE, NOR SKULL FRACTURE. 5. RIGHT MASTOIDECTOMY CHANGES REDEMONSTRATED. OPACIFICATION OF A FEW INFERIOR RIGHT MASTOID AIR CELLS CONSISTENT WITH RETAINED SECRETIONS OR MILD INFLAMMATION. JOB NUMBER: [id number] [facility]
--- NOTE | 2016-09-12 07:42 | CT SCAN REPORT ---
EXAM: CT OF THE CERVICAL SPINE WITHOUT CONTRAST HISTORY: FALL WITH TRAUMA TO BACK OF HEAD. NECK PAIN. TECHNIQUE: Thin collimation helical CT examination of the cervical spine was performed in the axial plane without intravenous contrast. Coronal and sagittal reformatted images were generated and reviewed. Comparison: CT of the cervical spine without contrast dated 02/20/13. FINDINGS: Diffuse osteopenia limits evaluation. There is mild levocurvature of the visualized upper thoracic spine. The cervical vertebral bodies are grossly normal in alignment and height. No acute fracture, destructive bone lesion, or prevertebral soft tissue swelling identified. Multilevel degenerative disk/degenerative end plate changes are identified most pronounced at the C4-C5, C5-C6 and C6-C7 levels. These changes are moderate in degree. No new osseous cervical spinal stenosis is, however, seen with borderline stenosis again demonstrated at the C5-C6 level. Multilevel bilateral facet arthropathy is present of varying degrees most pronounced at the mid to upper levels. There is redemonstration of fusion of the left C2-C3 and C3-C4 facet joints. Multilevel bilateral neural foraminal narrowing is suggested most pronounced at the C4-C5 level on the right where it is moderate to severe. This is not significantly changed. No new cervical mass nor adenopathy is seen. The thyroid gland is again noted to be heterogeneous with a couple small hypodense nodules again suggested in the left lobe measuring up to 5 mm. These do not, however, appear significantly changed. Biapical lung scarring redemonstrated. There are advanced hypertrophic changes of the atlantodental joint redemonstrated. Right mastoidectomy defect is again noted. There is opacification of a few inferior right mastoid air cells consistent with retained secretions or mild inflammation. IMPRESSION: 1. DIFFUSE OSTEOPENIA LIMITS EVALUATION. 2. NO CT EVIDENCE OF ACUTE FRACTURE, SUBLUXATION, OR PREVERTEBRAL SOFT TISSUE SWELLING. 3. MULTILEVEL DEGENERATIVE CHANGES, DISCUSSED IN DETAIL ABOVE, GROSSLY STABLE. 4. SEVERAL SMALL NODULES IN THE LEFT THYROID LOBE AGAIN SUGGESTED, NOT SIGNIFICANTLY CHANGED SUGGESTING A BENIGN PROCESS. JOB NUMBER: [id number] [facility]
--- NOTE | 2016-09-12 07:59 | Discharge Summary ---
Providers Discharge Summary Date: 09/12/16 Date of admission: 09/09/16 23:41 Expected Date of Discharge: 09/12/16 Attending physician: ILIR JACKSON Primary care physician: LUCY SHANNON M.D. Consults: Consult Orders 09/10/16 11:21 Consult NOW Consulting Provider: KIESHA BONILLA Physician Instructions: Reason For Exam: elevated liver enzymes Physical Exam - Vital Signs Vital Signs: Vital Signs - Last 24 Hrs Temp Pulse Resp BP Pulse Ox 09/12/16 04:54 97.9 F 63 18 147/82 97 09/11/16 20:30 98.0 F 68 18 136/72 94 L 09/11/16 13:15 99.0 F 67 16 123/77 93 L 09/11/16 09:00 80 16 09/11/16 08:12 97.8 F 75 16 132/70 92 L - General General Appearance: Alert, Oriented x3, Cooperative, No acute distress, Other ( facial droop noted (chronic per son)) Limitations: No limitations - Head Head exam: Atraumatic, Normocephalic, Normal inspection - Eye Eye exam: Normal appearance, PERRL. negative: Conjunctival injection, Periorbital swelling - ENT ENT exam: Normal exam, Mucous membranes moist. negative: Normal orophraynx Ear exam: Normal external inspection Nasal Exam: Normal inspection Mouth exam: Normal external inspection Teeth exam: Normal inspection Throat exam: Normal inspection - Neck Neck exam: Normal inspection, Full ROM. negative: Tenderness - Respiratory Respiratory exam: Normal lung sounds bilaterally. negative: Respiratory distress, Rhonchi, Stridor, Wheezes - Cardiovascular Cardiovascular Exam: Regular rate, Normal rhythm, Normal heart sounds - GI/Abdominal GI/Abdominal exam: Soft. negative: Diminished bowel sounds, Distended, Rigid, Tenderness - Rectal Rectal exam: Deferred - exam: Deferred - Extremities Extremities exam: Normal inspection, Full ROM, Normal capillary refill. negative: Calf tenderness, Joint swelling, Pedal edema, Tenderness - Back Back exam: Reports: Normal inspection, Full ROM. Denies: CVA tenderness (R), CVA tenderness (L), Muscle spasm, Paraspinal tenderness, Rash noted, Tenderness , Vertebral tenderness - Neurological Neurological exam: Alert, Normal gait, Oriented X3, Reflexes normal. negative: Altered, CN II-XII intact (facial droop, chronic and at baseline) - Psychiatric Psychiatric exam: Normal affect, Normal mood. negative: Agitated, Anxious, Depressed - Skin Skin exam: Dry, Intact, Normal color, Warm Hospitalization - Hospitalization Admission Diagnosis: Dehydration, elevated liver enzymes, vomiting and diarrhea - Problem List/Discharge Diagnosis (1) Elevated liver enzymes Current Visit: Yes Status: Acute Base Code: R74.8 - ABNORMAL LEVELS OF OTHER SERUM ENZYMES Comment: 09/12/16: medications vs. viral vs. biliary vs. other? s/p garry, ERCP w / sphincterotomy a few years ago. no abdominal pain, no jaundice. hepatic profile improving. - hepatic work up ordered - abd u/s: potential common duct stone vs. mass? - O/P MRCP this weekend at 16:45. - avoid liver harming agents (2) UTI (urinary tract infection) Current Visit: Yes Status: Acute Discharge Diagnosis: Urinary tract infection type: site unspecified Hematuria presence: without hematuria Qualified Code(s): N39.0 - Urinary tract infection, site not specified Base Code: N39.0 - URINARY TRACT INFECTION, SITE NOT SPECIFIED Comment: 09/12/16: UA trace leuks, +1 bacteria. normal WBC, afebrile. Denies dysuria, hematuria, abdominal pain. - Continue PO Bactrim noting elevated hepatic profile (3) Full code status Current Visit: Yes Status: Acute Base Code: Z78.9 - OTHER SPECIFIED HEALTH STATUS Comment: 09/12/16: patient remained full code during hospitalization - Hospitalization Course Disposition: [facility] Hospital Course: 81 yo female admitted UTI, dehydration and elevated hepatic profile. PMHx of bells palsy, hydrocephalus s/p shunt placement at [facility] 3 years ago, previous smoker (quit 35 years ago), acid reflux, HTN, depression, osteopenia, h /o elevated LFTs in 2013. History obtained from patient, son at bedside. Patient brought to our ED after experiencing a fall at [facility]. Patient states she felt weak and shaky prior to standing up yesterday. In addition, she felt sick to her stomach and got up to walk herself to the restroom to throw up. After vomiting, patient fell back and hit her head. Upon presentation to the ED, temp 98.1, HR 103, RR 18, BP 128/57, pulse ox 93% RA. WBC 6.2, hgb 13.4, hct 42.8 , plt 190, potassium 3.4, BUN 18, Cr. 1.1, glucose 111, total bili 2.07 (direct 0.4), alk phos 399, AST 399, ALT 183, normal amylase/lipase, UA: trace leuks, 1+bacteria, cervical spine CT: osteopenia, no fx, head CT: ventricular shunt, no fx/infarct. She was given a dose of Tylenol in the ED along with 1 gm of IV Rocephin. Patient admitted for further medical management. 09/10/16: this morning, pt is lying in bed comfortably with son at bedside. She states she feels better this morning, however she has quite a headache. severity 8. She states she frequently gets headaches. I spoke w/ the nursing facility and patient was receiving 500 mg of PO Tylenol a few times daily up until last week for headaches. Staff states that patient's PCP discontinued her Tylenol order. Patient denies any h/o elevated liver enzymes or h/o liver disease. Per patient's chart, she did appear to have slightly elevated LFTs in 2012, however these normalized. She denies any h/o etoh abuse. no h/o IV drug use. She's never been told she had any form of hepatitis. She follows with Dr. Bonilla for chronic diarrhea. Last colonoscopy was in 2013 which was relatively unremarkable. Patient states she was well yesterday, however later in the day began feeling sick to her stomach. She experienced a few episodes of diarrhea and then an episode of vomiting prior to her arrival to our ED. Pt's son states that his mother fell back in June. She was taken to [facility], had a negative CT per son and was discharged back to her nursing facility. Patient reports chills yesterday evening. No SOB, CP, fever, abdominal pain, constipation, dysuria, hematuria, blood in stool or vomit, extremity weakness, vision changes, confusion, lightheadedness or dizziness. No recent sick contacts or antibiotic use. no recent travel. PCP: Dr. Shannon Neurologist: Dr. Hilliard 09/12/16: patient recently returned from radiology. She states she feels more energetic this morning. No vomiting. + nausea that improved following a bowel movement. tolerated breakfast. afebrile. Denies cp, sob, abdominal pain, lightheadedness, confusion, or headaches. states she's ambulating throughout the room. Procedures: Imaging and X-Rays 09/12/16 07:16 ABDOMEN, COMPLETE [US] Stat Abnormal Labs: Abnormal Lab Results 09/10/16 09/10/16 09/10/16 Range/Units 05:20 05:20 06:00 RBC 3.73 L (3.80-5.40) M/uL Hgb 11.1 L (11.6-16.0) gm/dl MCHC 31.6 L (32-36) g/dl Plt Count (130-400) K/uL MPV 11.4 H (7.4-10.4) fl Neutrophils % 85.0 H (47-80) % Lymphocytes % 5.0 L (16-45) % Monocytes % 10.0 H (0-9) % Potassium (3.5-5.1) mmol/L Iron 21 L (30-170) ug/dL % Saturation 7 L (20-50) % Total Bilirubin 2.29 H (0.2-1.3) mg/dL Direct Bilirubin 0.4 H (0-0.3) mg/dL AST 422 H (14-36) U/L ALT 246 H (9-52) U/L Alkaline Phosphatase 258 H (38-126) U/L Total Protein 6.0 L (6.3-8.2) gm/dL Albumin 3.2 L (3.5-5.0) gm/dL 09/11/16 09/11/16 09/12/16 Range/Units 05:15 05:15 06:10 RBC (3.80-5.40) M/uL Hgb (11.6-16.0) gm/dl MCHC 31.2 L 31.7 L (32-36) g/dl Plt Count 114 L (130-400) K/uL MPV 11.3 H 12.3 H (7.4-10.4) fl Neutrophils % (47-80) % Lymphocytes % 11.3 L (16-45) % Monocytes % 10.8 H 14.4 H (0-9) % Potassium 3.4 L (3.5-5.1) mmol/L Iron (30-170) ug/dL % Saturation (20-50) % Total Bilirubin 2.86 H (0.2-1.3) mg/dL Direct Bilirubin (0-0.3) mg/dL AST 177 H (14-36) U/L ALT 195 H (9-52) U/L Alkaline Phosphatase 288 H (38-126) U/L Total Protein (6.3-8.2) gm/dL Albumin (3.5-5.0) gm/dL 09/12/16 Range/Units 06:10 RBC (3.80-5.40) M/uL Hgb (11.6-16.0) gm/dl MCHC (32-36) g/dl Plt Count (130-400) K/uL MPV (7.4-10.4) fl Neutrophils % (47-80) % Lymphocytes % (16-45) % Monocytes % (0-9) % Potassium (3.5-5.1) mmol/L Iron (30-170) ug/dL % Saturation (20-50) % Total Bilirubin 1.37 H (0.2-1.3) mg/dL Direct Bilirubin (0-0.3) mg/dL AST 87 H (14-36) U/L ALT 124 H (9-52) U/L Alkaline Phosphatase 239 H (38-126) U/L Total Protein (6.3-8.2) gm/dL Albumin 3.3 L (3.5-5.0) gm/dL Condition at Discharge: (1) Good Discharge Medications - Discharge Medications Prescriptions: Sulfamethoxazole/Trimethoprim [Bactrim] 1 each PO BID #14 tab Ondansetron [Zofran Odt] 4 mg PO Q8H PRN #15 tab.rapdis PRN Reason: Nausea Home Medications: Ambulatory Orders Aspirin [Aspir 81] 81 mg PO DAILY tab 09/22/15 [Last Taken 09/09/16] Amlodipine Besylate [Norvasc] 5 mg PO DAILY 09/09/16 [Last Taken 09/09/16] Calcium Carbonate/Vitamin D3 [[place] 500-Vit D3 200 Tablet] 1 each PO DAILY 09/09 [Last Taken 09/09/16] Escitalopram Oxalate [Lexapro] 20 mg PO DAILY 09/09/16 [Last Taken 09/09/16] Valsartan 320 mg PO DAILY 09/09/16 [Last Taken 09/09/16] Ondansetron [Zofran Odt] 4 mg PO Q8H PRN #15 tab.rapdis 09/12/16 [Last Taken Unknown] Sulfamethoxazole/Trimethoprim [Bactrim] 1 each PO BID #14 tab 09/12/16 [Last Taken Unknown] Discharge Plan - Discharge Instructions Activity at Discharge: Increase Activity as Tolerated Diet at Discharge: Regular Diet Additional Instructions: Get antibiotic (Bactrim) and take as directed. Please be sure to complete antibiotic. MRCP ordered and scheduled for Monday09/17/16 at 1645. You will need to be in contact with Dr. Bonilla's office regarding results. Their office number is [phone]. Please be sure to avoid all liver harming agents such as tylenol, motrin. Keep patient hydrated. She will continue all home medications. Zofran as needed for any nausea. home health services such as PT/OT will be set up as outpatient. follow up with primary doctor in 3-5 days. return to the ED sooner re any new or worsening symptoms
[2016-09-12] MEDS: TMP/SMZ 160MG/800MG TAB PO SCH ×2 (11:17→23:13)
[2016-09-12] MEDS: ESCITALOPRAM 10 MG TABLET PO SCH (11:17)
[2016-09-12] MEDS: ASPIRIN 81 MG TABEC PO SCH (11:17)
[2016-09-12] MEDS: CALCIUM CARB/VITAMIN D 500MG/200IU PO SCH (11:17)
[2016-09-13] MEDS: TMP/SMZ 160MG/800MG TAB PO SCH ×2 (05:09→09:35)
[2016-09-13 06:46] LABS: HEMATOCRIT 38.8 % (35.0-47.0); HEMOGLOBIN 12.2 gm/dl (11.6-16.0); MEAN CELL VOLUME 92.6 fl (81-97); MEAN CORPUSCULAR HEMOGLOBIN 29.1 pg (27-33); MEAN CORPUSCULAR HGB CONC 31.4 g/dl (32-36); MEAN PLATELET VOLUME 11.5 fl (7.4-10.4); PLATELET COUNT 212 K/uL (130-400); RED BLOOD COUNT 4.19 M/uL (3.80-5.40); WHITE BLOOD COUNT W/O DIFF 4.9 K/uL (4.2-12.2)
[2016-09-13 07:05] LABS: ALB/GLOB RATIO 1.1 (1.1-1.8); ALBUMIN 3.6 gm/dL (3.5-5.0); ALKALINE PHOSPHATASE 257 U/L (38-126); ALT/SGPT 96 U/L (9-52); ANION GAP 10.2 (7-16); AST/SGOT 58 U/L (14-36); BILIRUBIN,TOTAL 1.52 mg/dL (0.2-1.3); BLOOD UREA NITROGEN 8 mg/dL (7-17); CARBON DIOXIDE 23.8 mmol/L (22-30); CREATININE 0.9 mg/dL (0.52-1.04); EST GLOMERULAR FILTRATION RATE > 60 ml/min; GLUCOSE,RANDOM 90 mg/dL (70-110); TOTAL PROTEIN 6.8 gm/dL (6.3-8.2)
--- NOTE | 2016-09-13 07:08 | ULTRASOUND REPORT ---
EXAM: ULTRASOUND OF THE ABDOMEN COMPLETE HISTORY: ABNORMAL LIVER FUNCTION TESTS. NAUSEA AND VOMITING INTERMITTENTLY FOR ONE MONTH, WORSENING IN THE LAST THREE DAYS. TECHNIQUE: Routine ultrasound examination of the abdomen was performed. Comparison: Ultrasound of the abdomen dated 06/12/12. FINDINGS: The pancreas is normal in appearance. There is diffuse atherosclerosis of the abdominal aorta without focal aneurysmal dilatation. The inferior vena cava is patent. No focal hepatic lesion is seen. The hepatic parenchyma does, however, appear somewhat coarsened in echotexture. Intrahepatic biliary ductal dilatation is demonstrated most pronounced in the left liver lobe. The common hepatic/common bile duct is dilated measuring up to 2 cm. This was not measured on the prior examination. The portal vein appears patent. The spleen is not enlarged and is homogeneous in echotexture. Screening evaluation of the kidneys does not demonstrate hydronephrosis nor mass with the right kidney measuring 9.5 cm in length and the left kidney measuring 10.0 cm in length. The portal vein appears grossly patent. The gallbladder is surgically absent. IMPRESSION: 1. INTRA AND EXTRAHEPATIC BILIARY DUCTAL DILATATION IDENTIFIED WITH THE INTRAHEPATIC BILIARY DUCTAL DILATATION MOST PRONOUNCED IN THE LEFT LIVER LOBE. THE COMMON DUCT MEASURES UP TO 2 CM. AN OBSTRUCTING CALCULUS/MASS DISTALLY WITHIN THE COMMON DUCT IS POSSIBLE. FURTHER EVALUATION WITH MRCP IS RECOMMENDED. 2. THE LIVER DOES APPEAR SOMEWHAT COARSENED IN ECHOTEXTURE. THIS CAN BE SEEN WITH STEATOSIS, HEPATITIS AND CIRRHOSIS. 3. 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 4. THE GALLBLADDER IS SURGICALLY ABSENT. JOB NUMBER: [id number] AND [id number] [facility]
[2016-09-13 07:12] LABS: PLATELET ESTIMATE NORMAL (NORMAL)
[2016-09-13] MEDS ORDERED: ONDANSETRON 4 MG ODT TABLET SL PRN (07:39)
[2016-09-13] MEDS: CALCIUM CARB/VITAMIN D 500MG/200IU PO SCH (09:35)
[2016-09-13] MEDS: ASPIRIN 81 MG TABEC PO SCH (09:36)
[2016-09-13] MEDS: ESCITALOPRAM 10 MG TABLET PO SCH (09:36)
--- NOTE | 2016-09-13 09:54 | Rehab Evaluation ---
Patient Information - Patient Information Diagnosis: dehydration, elevated liver enzymes, vomiting and diarrhea Ordered Treatment: OT Evaluate and Treat Status: Initial Evaluation Surgery: No History: Detail (Pt admitted from [facility] after a fall on 09/09/16.) Past Medical/Surgical Hx: PMH - Patient Premorbid Status: Detail (Pt lives at [facility]. She reports being Ind with showering and dressing as well as ambulating with a 3 wheeled walker. She is not responsible for home mgmt, meal prep, laundry activities.) Precautions: [place], Fall - Time With Patient Total Time Spent With Patient (Min): 35 Treatment Procedures: Detail (OT eval low complexity) Subjective Information - Subjective Information Per Patient Objective Data - Pain Pain Present: No (Pt has no pain, she feels tired and sick.) - Mental Status Patient Orientation: Oriented x3 (Pt states month as May, otherwise she was oriented.) - Visual Perception Appears within normal limits for therapeutic activities (Pt wears glasses for reading.) - ROM Within normal limits (Benjy UE AROM functional throughout.) - Strength/Tone Within normal limits (Benjy UE MMT grossly 4/5 throughout.) - Coordination Appears within normal limits for therapeutic activities - Bed Mobility Independent (Ind with supine to sit and sit to supine.) - Transfers Independent (Ind with sit to stand from EOB to walker.) - Balance Balance Sitting: Good - Sensation Intact - Gait Detail (Pt ambulated in hallway with 2 wheeled walker and CG assist, no loss of balance noted.) - ADL's/IADL's Detail (Pt reports she has been toileting with nursing supervision. Other ADLs not formally assessed as pt was too tired.) Therapy Assessment - Therapy Assessment Detail (Pt presents with decreased endurance needed for safe and Ind self care and mobility tasks.) Problem List - Problem List Occupational Therapy Problem List: Detail (1. Decreased Ind with showering/ dressing activities. 2. Decreased endurance needed for safe and Ind ADLs) Goals - Goals Occupational Therapy Goals: 1. Pt will be Ind with showering and dressing 2. Pt will demonstrate improved endurance needed for ADLs and functional mobility. Prognosis - Prognosis Good Plan - Plan Occupational Therapy Plan: Recommend home OT after discharge to increase safety and endurance with ADLs and functional mobility.
--- NOTE | 2016-09-13 09:54 | Rehab Evaluation ---
Patient Information - Patient Information Diagnosis: Fall injury Ordered Treatment: PT Evaluate and Treat Status: Initial Evaluation Past Med/Lisa Hx Detail: Detail (The patient was admitted from [facility] ED on from [facility] after falling. The patient is referred for an OT/PT evaluation.) Past Medical/Surgical Hx: PMH - Patient Premorbid Status: Detail (Per the patient's report she was ambulatory with a 2 wheeled walker.) Social History: Detail (The patient is a resident of [facility]. Patient states she has a walker with wheels and a hadicapped assessible bathroom. The patient reports she was dressing independently and showering without assist.) Precautions: [place], Fall - Time With Patient Total Time Spent With Patient (Min): 30 Treatment Procedures: Detail (PT initial evaluation.) Subjective Information - Subjective Information Per Patient (The patient denied pain but complained of nausea. The patient was reluctant to participate due to fatigue, however with encouragement the patient did participate.) Objective Data - Mental Status Patient Orientation: Person, Place (The patient was Oriented to person, birthday , age and place. The patient identified year and month.) - Visual Perception Appears within normal limits for therapeutic activities (Patient completed without glasses.) - ROM Within normal limits (The patient's LE AROM bilaterally was WFL. Refer to OT note for UE ROM.) - Strength/Tone Within normal limits (The patient's LE strength bilaterally was 4+ to 5/5.) - Bed Mobility Independent (The patient acheived supine to and from sit transfer independently. ) - Transfers Independent (The patient was independent with sit to and from stand transfer, however the patient required verbal cues to use walker to turn and to reach for the surface.) - Balance Balance Sitting: Good Balance Standing: Fair (The patient required the walker for support in standing. The patient's balance was not formally tested using standardized Balance testing tools.) - Gait Detail (The patient ambulated with wheeled walker with CG of 1 for safety a distance of 50 feet x 1. The patient's gait pattern was charecterized by decreased stride length bilaterally, bilaterally feet turning in during stance phases.) Therapy Assessment - Therapy Assessment Detail (The patient exhibited decreased ability to complete sustained physical activity, decreased balance and CG with ambulation for safety. The patient would benefit from OT/PT services to return to previous functional level when discharged from [facility].) Problem List - Problem List Physical Therapy Problem List: Detail (1) Decreased Balance 2) Decreased ability to complete sustained physical activities 3) CG with ambulation and limited ambulation distance.) Goals - Goals Physical Therapy Goals: 1) Assess the patient's balance using standardized balance testing tool. 2) The patient will ambulate with supervision to independent distances required at [facility] ie: to dining room. 3) The patient will tolerate 30 minutes of physical acitivity with one to two rest periods. Prognosis - Prognosis Good (Good to return to previous functional level.) Plan - Plan Physical Therapy Plan: PT daily M-F until discharge from [facility] for gait training , transfer training balance and muscular endurance exercises . Ongoing Rehab is recommended following discharge from [facility].
--- NOTE | 2016-09-13 14:50 | Medical Records Consult ---
DATE OF CONSULTATION: 09/12/2016 REFERRING PHYSICIAN: Angelo Alberto D.O. Seen here in the hospital by Sher Lazaro M.D. HISTORY OF PRESENT ILLNESS: The patient is a very pleasant 81-year-old female seen in consultation at this time at the request of the admitting service for evaluation of elevated aminotransferase levels. She presented to the hospital following a fall at the [facility] on 09/10/2016. She felt weak and shaky and fell trying to stand up. In addition, she had nausea with subsequent vomiting and then diarrhea. She presented to the emergency department with fairly stable vital signs, a hemoglobin of 13.4 and a hematocrit of 42.8 with a white blood cell count of 6.2. Because she hit her head, a CT was completed demonstrating a ventricular shunt but no fractures or infarcts were noted. She clinically improved over the next day. She was seen in consultation at this time due to elevated aminotransferase levels. She had initially presented with a bilirubin of 2.29 which dropped to 1.37 today. Her direct fraction was only 0.4 on admission. Her AST was elevated at 422 and this dropped to 87. Her alk phos was elevated at 258 and this dropped to 239. Her ALT was 246 and this dropped to 124 today. Amylase and lipase were normal. The patient does have a prior history of possible common duct stone, in fact had an ERCP completed in 2013 at which time a sphincterotomy and balloon sweeping of the bile duct was completed but failed to demonstrate any obstruction. Clinically the patient did have some epigastric discomfort but this also is improved and she is now eating. PAST MEDICAL HISTORY: In addition to the above includes urinary tract infection, dehydration, Montemayor's palsy, hydrocephalus with the above-mentioned stent, chronic acid reflux, hypertension, depression, osteopenia, and the prior history of elevated aminotransferase levels as described above. She is a somewhat poor historian and for this reason the majority of the history was obtained from the medical record and in discussion with the admitting service. PREVIOUS SURGERIES: Include cholecystectomy. SOCIAL HISTORY: She is a former smoker, quitting many years ago. ALLERGIES: PENICILLIN and LEVOFLOXACIN but the adverse reaction is unknown. HOME MEDICATIONS: 1. Aspirin. 2. Amlodipine. 3. Calcium carbonate. 4. Lexapro. 5. Valsartan. 6. She was also given Tylenol for chronic pain 3 times daily but this has been held. 7. She is now receiving Bactrim for a urinary tract infection. PHYSICAL EXAMINATION: GENERAL: She seems alert but somewhat disoriented. HEART: Regular. LUNGS: Clear. ABDOMEN: Soft. There is no tenderness at this time. EXTREMITIES: Free from edema. MUSCULOSKELETAL: Grossly unremarkable. LABORATORY: As noted above. The patient also had an ultrasound and per verbal report there was a dilated common bile duct and dilated intrahepatic ducts. The common bile duct measured up to 2 cm in diameter. There was concern for possible obstructing stone or mass at the distal bile duct. The patient is ready for discharge from the hospital and will be followed up as an outpatient. IMPRESSION: The patient suffered with a fall associated with nausea, vomiting and diarrhea which was resolved and a CT of the head proved to be fairly unremarkable. She does have a previous shunt for treatment of hydrocephalus. Of concern is the dilated biliary tree noted on ultrasound completed today. The possibility of a distal common bile duct obstruction is present although her bilirubin is now normalizing and her aminotransferase levels are reducing. The direct fraction for her initial high bilirubin was also very low suggesting that this may not be an obstructive process and perhaps related to something else. Nevertheless, MRCP would be of benefit to further evaluate the biliary tree; if abnormal, ERCP can be considered. As mentioned above, she had an ERCP with sphincterotomy completed in 2013. I discussed my impressions and recommendations at this time with the admitting service and MRCP will be arranged with the results sent to my office. Further recommendations will be forthcoming at that time. Thank you again for allowing me to participate in her care. Andres Padilla DO CC: Sher Lazaro M.D. Angelo Alberto M.D. LIOR
[2016-09-14 08:51] LABS: ANTIMITOCHONDRIAL ANTIBODY Negative (Negative); CERULOPLASMIN 23 mg/dL (18-58); HEPATITIS B SURFACE ANTIBODY 0.76 mIU/mL (()); HEPATITIS B SURFACE ANTIGEN Nonreactive (Nonreactive); HEPATITIS C VIRUS ANTIBODY Nonreactive (Nonreactive)
[2016-09-14 08:57] LABS: ALPHA-1-ANTITRYPSIN 105 mg/dL (110-200)
== END 2016-09-13 13:45 | DRG 641 ==
LOC: ER 21:15 → MEDSURG 23:41 → OBSVTOIN 09-11 10:45
PROVIDERS: ADMIT Family Medicine; ATTEND Family Medicine
DX: E86.0 Dehydration (principal); R53.1 Weakness; N39.0 Urinary tract infection, site not specified; I10 Essential (primary) hypertension; M81.0 Age-related osteoporosis without current pathological fracture; R94.5 Abnormal results of liver function studies
CPT/HCPCS: 99284; 96374; 96361; 99285; 83550; 82150; 83690 ×2; 86256; 86803; 82390; 85025; 85610; 80076; 86644; 86645; 86664; 86665 ×2; 80053 ×2; 81001; 82728; 86706; 84443; 82103; 87340; 85027 ×2; 72125; 70450; G0378 ×25; J2405; J3490 ×2; 76700; 97165; 99220; 99233; 99239; J7030

== ENCOUNTER 2016-09-15 17:17 | Emergency (ER) | payer MEDICARE ==
--- NOTE | 2016-09-15 17:59 | Emergency Department Record ---
History of Present Illness - General Chief complaint: Head Injury Stated complaint: FALL AND STRUCK HER HEAD Time Seen by Provider: 09/15/16 17:47 Source: Patient, EMS Mode of Arrival: EMS Limitations: No limitations - History of Present Illness Initial comments: pt fell and hit head and was confused afterwards. no loc. she also c/o neck pain. pt has a hx of frequent falls. MD Complaint: Fall Onset/Timin -: Days(s) Arrival Conditions: C-spine immobilization present Mechanism of Injury: Other Location: Occipital Loss of Consciousness: No Previous Trauma to this Area: No (recent freq. falls) Place: Other Consistency: Other (getting better) Context: On Aspirin Associated Symptoms: Denies other symptoms - Related Data Home Medications Medication Instructions Recorded Confirmed Last Taken Aspirin [Aspir 81] 81 mg PO DAILY tab. 09/22/15 09/09/16 09/09/16 Amlodipine Besylate [Norvasc] 5 mg PO DAILY 09/09/16 09/09/16 09/09/16 Calcium Carbonate/Vitamin D3 1 each PO DAILY 09/09/16 09/09/16 09/09/16 [Oysco 500-Vit D3 200 Tablet] Escitalopram Oxalate [Lexapro] 20 mg PO DAILY 09/09/16 09/09/16 09/09/16 Valsartan 320 mg PO DAILY 09/09/16 09/09/16 09/09/16 Previous Rx's Medication Instructions Recorded Ondansetron [Zofran Odt] 4 mg PO Q8H PRN #15 tab.rapdis 09/12/16 Sulfamethoxazole/Trimethoprim 1 each PO BID #14 tab 09/12/16 [Bactrim] Allergies/Adverse reactions: Allergies Allergy/AdvReac Type Severity Reaction Status Date / Time Penicillins [PENICILLINS] Allergy Unknown PT UNSURE Verified 09/09/16 21:19 OF REACTION levofloxacin [LEVOFLOXACIN] AdvReac Unknown PAIN IN Verified 09/09/16 21:19 LEGS, UNABLE TO WALK Travel Screening - Travel/Exposure Within Last 30 Days Have you traveled within the last 30 days?: No - Travel/Exposure Within Last Year Have you traveled outside the [place] in the last year?: No - Additonal Travel Details Have you been exposed to anyone with a communicable illness?: No - Travel Symptoms Symptom Screening: None Review of Systems Reviewed: No additional complaints except as noted below Constitutional: Reports: As per HPI. Denies: Chills, Fever, Malaise, Night sweats, Weakness, Weight change Eyes: Reports: As per HPI. Denies: Eye discharge, Eye pain, Photophobia, Vision change ENT: Reports: As per HPI. Denies: Congestion, Dental pain, Ear pain, Epistaxis , Hearing loss, Throat pain Respiratory: Reports: As per HPI. Denies: Cough, Dyspnea, Hemoptysis, Stridor, Wheezes Cardiovascular: Reports: As per HPI. Denies: Arrhythmia, Chest pain, Dyspnea on exertion, Edema, Murmurs, Orthopnea, Palpitations, Paroxysmal nocturnal dyspnea, Rheumatic Fever, Syncope Endocrine: Reports: As per HPI. Denies: Fatigue, Heat or cold intolerance, Polydipsia, Polyuria Gastrointestinal: Reports: As per HPI. Denies: Abdominal pain, Constipation, Diarrhea, Hematemesis, Hematochezia, Melena, Nausea, Vomiting Genitourinary: Reports: As per HPI. Denies: Abnormal menses, Discharge, Dyspareunia, Dysuria, Frequency, Hematuria, Incontinence, Retention, Urgency Musculoskeletal: Reports: As per HPI. Denies: Arthralgia, Back pain, Gout, Joint swelling, Myalgia, Neck pain Skin: Reports: As per HPI. Denies: Bruising, Change in color, Change in hair/ nails, Lesions, Pruritus, Rash Neurological: Reports: As per HPI. Denies: Abnormal gait, Confusion, Headache, Numbness, Paresthesias, Seizure, Tingling, Tremors, Vertigo, Weakness Psychiatric: Reports: As per HPI. Denies: Anxiety, Auditory hallucinations, Depression, Homicidal thoughts, Suicidal thoughts, Visual hallucinations Hematological/Lymphatic: Reports: As per HPI. Denies: Anemia, Blood Clots, Easy bleeding, Easy bruising, Swollen glands Past Medical History - SOCIAL HISTORY Smoking Status: Former smoker Alcohol Use: None Drug Use: None - RESPIRATORY Hx Respiratory Disorders: No - CARDIOVASCULAR Hx Cardio Disorders: Yes Hx Hypertension: Yes - NEURO Hx Neuro Disorders: Yes Comment:: Bels Palsy; Hydrocephalus; ataxic gait; - GI Hx GI Disorders: No - Hx Genitourinary Disorders: No - ENDOCRINE Hx Endocrine Disorders: No - MUSCULOSKELETAL Hx Musculoskeletal Disorders: Yes Hx Arthritis: Yes (polyosteoarthritis; osteoporosis) Comment:: pathological fxs - PSYCH Hx Psych Problems: Yes Hx Anxiety: Yes - HEMATOLOGY/ONCOLOGY Hx Hematology/Oncology Disorders: No Family Medical History Any Significant Family History?: No Family Hx Comment (NOT TO BE USED IN PLACE OF ITEMS BELOW): unknown Physical Exam - General General Appearance: Alert, Oriented x3, Cooperative, Mild distress - Head Head exam: Normal inspection Head exam detail: Contusion - Eye Eye exam: Normal appearance, PERRL, EOMI Pupils: Normal accommodation - ENT ENT exam: Normal exam, Mucous membranes moist, Normal external ear exam, Normal orophraynx Ear exam: Normal external inspection. negative: External canal tenderness Nasal Exam: Normal inspection. negative: Discharge, Sinus tenderness Mouth exam: Normal external inspection, Tongue normal Teeth exam: Normal inspection. negative: Dental caries Throat exam: Normal inspection. negative: Tonsillar erythema, Tonsillar exudate - Neck Neck exam: Normal inspection, Tenderness, Other (in collar) - Respiratory Respiratory exam: Normal lung sounds bilaterally. negative: Respiratory distress - Cardiovascular Cardiovascular Exam: Regular rate, Normal rhythm, Normal heart sounds - GI/Abdominal GI/Abdominal exam: Soft, Normal bowel sounds. negative: Tenderness - Rectal Rectal exam: Deferred - exam: Deferred - Extremities Extremities exam: Normal inspection, Full ROM, Normal capillary refill. negative: Tenderness - Back Back exam: Reports: Normal inspection, Full ROM. Denies: Muscle spasm, Rash noted, Tenderness - Neurological Neurological exam: Alert, CN II-XII intact, Normal gait, Oriented X3 - Psychiatric Psychiatric exam: Normal affect, Normal mood - Skin Skin exam: Dry, Intact, Normal color, Warm Course Vital Signs 09/15/16 17:33 Temperature 98.1 F Pulse Rate 67 Respiratory 18 Rate Blood Pressure 137/68 Pulse Ox 97 Disposition Disposition: Discharge Clinical Impression: Head injury Qualifiers: Encounter type: initial encounter Qualified Code(s): S09.90XA - Unspecified injury of head, initial encounter Disposition: Home, Self-Care Condition: (1) Good Instructions: Minor Head Injury (ED) Additional Instructions: follow up with family doctor. rest . return sooner if worse. Forms: Patient Portal Access
== END 2016-09-15 19:29 | disposition home or self-care (01) ==
LOC: ER 17:17
DX: S09.90XA Unspecified injury of head, initial encounter (principal); R41.0 Disorientation, unspecified; M54.2 Cervicalgia; I10 Essential (primary) hypertension; W19.XXXA Unspecified fall, initial encounter; Z91.81 History of falling; Y92.129 Unspecified place in nursing home as the place of occurrence of the external cause
CPT/HCPCS: 36416; 70450; 72125; 82948; 96374; 96375; 99284

== ENCOUNTER 2016-11-23 09:57 | Emergency (ER) | payer MEDICARE ==
--- NOTE | 2016-11-23 10:20 | Emergency Department Record ---
History of Present Illness - General Chief Complaint: Fall Injury Stated Complaint: FALL Time Seen by Provider: 11/23/16 10:00 Source: Patient, RN notes reviewed - History of Present Illness Initial Comments: patient states dizzy and fell and no pain from the fall but EMS called and she was transported. When she sits up she has spinning also with rotation of head right or left. No C spine pain on palpation and no neck pain with motion of neck in any direction. patient denies vertigo before and she had hydrocephalus with shunt placement 3 years ago. Patient lives at [facility] on the non memory side. Complaint: Fall - Related Data Home Medications Medication Instructions Recorded Confirmed Last Taken Aspirin [Aspir 81] 81 mg PO DAILY tab.dr 09/22/15 11/23/16 11/23/16 Amlodipine Besylate [Norvasc] 5 mg PO DAILY 09/09/16 11/23/16 11/23/16 Calcium Carbonate/Vitamin D3 1 each PO DAILY 09/09/16 11/23/16 11/23/16 [Oysco 500-Vit D3 200 Tablet] Escitalopram Oxalate [Lexapro] 20 mg PO DAILY 09/09/16 11/23/16 11/23/16 Valsartan 320 mg PO DAILY 09/09/16 11/23/16 11/23/16 Previous Rx's Medication Instructions Recorded Ondansetron [Zofran Odt] 4 mg PO Q8H PRN #15 tab.rapdis 09/12/16 Meclizine HCl [Antivert] 25 mg PO Q8H #30 tablet 11/23/16 Allergies Allergy/AdvReac Type Severity Reaction Status Date / Time Penicillins [PENICILLINS] Allergy Unknown PT UNSURE Verified 11/23/16 10:02 OF REACTION levofloxacin [LEVOFLOXACIN] AdvReac Unknown PAIN IN Verified 11/23/16 10:02 LEGS, UNABLE TO WALK Review of Systems Reviewed: No additional complaints except as noted below Constitutional: Reports: As per HPI. Denies: Chills, Fever, Malaise, Night sweats, Weakness, Weight change Eyes: Reports: As per HPI. Denies: Eye discharge, Eye pain, Photophobia, Vision change ENT: Reports: As per HPI. Denies: Congestion, Dental pain, Ear pain, Epistaxis , Hearing loss, Throat pain Respiratory: Reports: As per HPI. Denies: Cough, Dyspnea, Hemoptysis, Stridor, Wheezes Cardiovascular: Reports: As per HPI. Denies: Arrhythmia, Chest pain, Dyspnea on exertion, Edema, Murmurs, Orthopnea, Palpitations, Paroxysmal nocturnal dyspnea, Rheumatic Fever, Syncope Endocrine: Reports: As per HPI. Denies: Fatigue, Heat or cold intolerance, Polydipsia, Polyuria Gastrointestinal: Reports: As per HPI. Denies: Abdominal pain, Constipation, Diarrhea, Hematemesis, Hematochezia, Melena, Nausea, Vomiting Genitourinary: Reports: As per HPI. Denies: Abnormal menses, Discharge, Dyspareunia, Dysuria, Frequency, Hematuria, Incontinence, Retention, Urgency Musculoskeletal: Reports: As per HPI. Denies: Arthralgia, Back pain, Gout, Joint swelling, Myalgia, Neck pain Skin: Reports: As per HPI. Denies: Bruising, Change in color, Change in hair/ nails, Lesions, Pruritus, Rash Neurological: Reports: As per HPI, Vertigo. Denies: Abnormal gait, Confusion, Headache, Numbness, Paresthesias, Seizure, Tingling, Tremors, Weakness Psychiatric: Reports: As per HPI. Denies: Anxiety, Auditory hallucinations, Depression, Homicidal thoughts, Suicidal thoughts, Visual hallucinations Hematological/Lymphatic: Reports: As per HPI. Denies: Anemia, Blood Clots, Easy bleeding, Easy bruising, Swollen glands Past Medical History - SOCIAL HISTORY Smoking Status: Former smoker Drug Use: None - RESPIRATORY Hx Respiratory Disorders: No - CARDIOVASCULAR Hx Cardio Disorders: Yes Hx Hypertension: Yes - NEURO Hx Neuro Disorders: Yes Comment:: Bels Palsy; Hydrocephalus; ataxic gait; - GI Hx GI Disorders: No - Hx Genitourinary Disorders: No - ENDOCRINE Hx Endocrine Disorders: No - MUSCULOSKELETAL Hx Musculoskeletal Disorders: Yes Hx Arthritis: Yes (polyosteoarthritis; osteoporosis) Comment:: pathological fxs - PSYCH Hx Psych Problems: Yes Hx Anxiety: Yes - HEMATOLOGY/ONCOLOGY Hx Hematology/Oncology Disorders: No Family Medical History Family Hx Comment (NOT TO BE USED IN PLACE OF ITEMS BELOW): unknown Physical Exam - General General Appearance: Alert, Oriented x3, Cooperative, No acute distress - Head Head exam: Normal inspection - Eye Eye exam: Normal appearance, PERRL Pupils: Normal accommodation - ENT ENT exam: Normal exam, Mucous membranes moist, Normal external ear exam, Normal orophraynx, TM's normal bilaterally Ear exam: Normal external inspection. negative: External canal tenderness Nasal Exam: Normal inspection. negative: Discharge, Sinus tenderness Mouth exam: Normal external inspection, Tongue normal Teeth exam: Normal inspection. negative: Dental caries Throat exam: Normal inspection. negative: Tonsillar erythema, Tonsillar exudate - Neck Neck exam: Normal inspection, Full ROM. negative: Tenderness - Respiratory Respiratory exam: Normal lung sounds bilaterally. negative: Respiratory distress - Cardiovascular Cardiovascular Exam: Regular rate, Normal rhythm, Normal heart sounds - GI/Abdominal GI/Abdominal exam: Soft, Normal bowel sounds. negative: Tenderness - Rectal Rectal exam: Deferred - exam: Deferred - Extremities Extremities exam: Normal inspection, Full ROM, Normal capillary refill. negative: Tenderness - Back Back exam: Reports: Normal inspection, Full ROM. Denies: Muscle spasm, Rash noted, Tenderness - Neurological Neurological exam: Alert, CN II-XII intact (history of burris 's palsy with residual droop of the right side of face.), Normal gait, Oriented X3, Reflexes normal, Other (ambulatory at scene and moves all four extremities) - Psychiatric Psychiatric exam: Normal affect, Normal mood - Skin Skin exam: Dry, Intact, Normal color, Warm Medical Decision Making - Data Complexity MDM Data: Labs Ordered and/or Reviewed (UA negative and blood is benign), X-Ray Ordered and/or Reviewed (ventricles stable and shut in good position and no acute findings) - Lab Data Result diagrams: 11/23/16 10:20 11/23/16 10:20 Disposition Clinical Impression: Vertigo Fall Qualifiers: Encounter type: initial encounter Qualified Code(s): W19.XXXA - Unspecified fall, initial encounter BPV (benign positional vertigo) Qualifiers: Laterality: unspecified laterality Qualified Code(s): H81.10 - Benign paroxysmal vertigo, unspecified ear Disposition: Home, Self-Care Condition: (1) Good Instructions: Fall Prevention for Older Adults (ED), Benign Paroxysmal Positional Vertigo (ED) Additional Instructions: follow up with family in 7 to 10 days take antivert 12.5 mg three times a day Prescriptions: Meclizine HCl [Antivert] 25 mg PO Q8H #30 tablet Forms: Patient Portal Access Time of Disposition: 12:00
[2016-11-23 10:29] LABS: URINE APPEARANCE CLOUDY; URINE BILIRUBIN NEGATIVE (NEGATIVE); URINE BLOOD TRACE-I (NEGATIVE); URINE COLOR YELLOW; URINE GLUCOSE (UA) NEGATIVE (NEGATIVE); URINE KETONE NEGATIVE (NEGATIVE); URINE LEUKOCYTE ESTERASE NEGATIVE (NEGATIVE); URINE NITRITE NEGATIVE (NEGATIVE); URINE PROTEIN NEGATIVE (NEGATIVE); URINE UROBILINOGEN 0.2 E.U./dL (0.20 - 1.00)
[2016-11-23 10:32] LABS: BASO % 1.1 % (0-6); EOS % 3.5 % (0-6); GRAN % 56.4 % (47-80); HEMATOCRIT 40.4 % (35.0-47.0); LYMPH % 28.8 % (16-45); MEAN CELL VOLUME 92.7 fl (81-97); MEAN CORPUSCULAR HEMOGLOBIN 29.8 pg (27-33); MEAN CORPUSCULAR HGB CONC 32.2 g/dl (32-36); MEAN PLATELET VOLUME 9.5 fl (7.4-10.4); MONO % 10.2 % (0-9); PLATELET COUNT 317 K/uL (130-400); RED BLOOD COUNT 4.36 M/uL (3.80-5.40); RED CELL DISTRIBUTION WIDTH 12.8 % (11.5-14.5); WHITE BLOOD COUNT W/O DIFF 4.5 K/uL (4.2-12.2)
[2016-11-23 10:42] LABS: URINE BACTERIA NONE SEEN; URINE EPITHELIAL CELLS 0 - 2 (FEW); URINE RBC 0 - 2 (NONE SEEN); URINE WBC NONE SEEN (0-2/hpf)
[2016-11-23 10:45] LABS: BLOOD UREA NITROGEN 13 mg/dL (7-17); CREATININE 0.8 mg/dL (0.52-1.04); EST GLOMERULAR FILTRATION RATE > 60 ml/min; GLUCOSE,RANDOM 102 mg/dL (70-110)
[2016-11-23] MEDS ORDERED: MECLIZINE 25 MG TABLET PO ONE (11:18)
--- NOTE | 2016-11-23 12:25 | CT SCAN REPORT ---
EXAM: CT OF THE BRAIN WITHOUT CONTRAST HISTORY: MENTAL STATUS CHANGE. TECHNIQUE: Sequential axial images were obtained from the foramen magnum to the vertex without contrast administration. FINDINGS: There is age appropriate cortical atrophy. There is periventricular small vessel ischemic change. There is a right parietal approach ventricular shunt. The ventricles appear similar in size. No large territorial infarct, hemorrhage, mass effect, or midline shift. The orbits, paranasal sinuses, and mastoid air cells appear normal. IMPRESSION: 1. THE VENTRICLES APPEAR STABLE IN APPEARANCE. THERE IS PERIVENTRICULAR SMALL VESSEL ISCHEMIA. 2. RIGHT VENTRICULAR SHUNT IN STABLE POSITION. JOB NUMBER: [id number] MTDD
--- NOTE | 2016-11-23 12:42 | CT SCAN REPORT ---
EXAM: CT OF THE CERVICAL SPINE HISTORY: FALL. TECHNIQUE: Sequential axial images were obtained through the cervical spine without intravenous contrast administration. FINDINGS: There is multilevel degenerative change. No evidence of fracture, subluxation or perched facet. The lateral masses are well aligned. IMPRESSION: NEGATIVE CERVICAL SPINE EXAMINATION. JOB NUMBER: [id number] MTDD
== END 2016-11-23 12:00 | disposition home or self-care (01) ==
LOC: ER 09:57
DX: H81.10 Benign paroxysmal vertigo, unspecified ear (principal); R26.0 Ataxic gait; G91.9 Hydrocephalus, unspecified; I10 Essential (primary) hypertension; Z87.891 Personal history of nicotine dependence; W19.XXXA Unspecified fall, initial encounter; Y92.129 Unspecified place in nursing home as the place of occurrence of the external cause
CPT/HCPCS: 70450; 72125; 80048; 81001; 85025; 85730; 99283; 99284

== ENCOUNTER 2017-03-09 22:16 | Emergency (ER) | payer MEDICARE ==
[2017-03-09 22:55] LABS: URINE APPEARANCE CLEAR; URINE BILIRUBIN NEGATIVE (NEGATIVE); URINE BLOOD SMALL (NEGATIVE); URINE COLOR YELLOW; URINE GLUCOSE (UA) NEGATIVE (NEGATIVE); URINE KETONE NEGATIVE (NEGATIVE); URINE LEUKOCYTE ESTERASE NEGATIVE (NEGATIVE); URINE NITRITE NEGATIVE (NEGATIVE); URINE PROTEIN NEGATIVE (NEGATIVE); URINE UROBILINOGEN 0.2 E.U./dL (0.20 - 1.00)
[2017-03-09 23:02] LABS: URINE RBC 0 - 2 (NONE SEEN); URINE WBC 0 - 2 (0-2/hpf)
--- NOTE | 2017-03-09 23:28 | Emergency Department Record ---
History of Present Illness - General Chief Complaint: Fall Injury Stated Complaint: FALL Time Seen by Provider: 03/09/17 22:23 Source: Patient, EMS Mode of Arrival: EMS Limitations: No limitations - History of Present Illness Initial Comments: pt fell in bathroom hitting her head and hurting her back. she falls frequently. no loc. she also has had a productive cough and staff thought she might have a uti MD Complaint: Fall Onset/Timin -: Minutes(s) Fall From: Standing When Fall Occurred: Just prior to arrival Fall Witnessed: No Place Fall Occurred: halfway/SNF Loss of Consciousness: None Prolonged Down Time?: No Symptoms Prior to Fall: None Location: Head, Face, Neck, Back - Kin Coma Scale Eye Response: (4) Open spontaneously Motor Response: (6) Obeys commands Verbal Response: (5) Oriented Kin Total: 15 - Related Data Home Medications Medication Instructions Recorded Confirmed Last Taken Cholecalciferol (Vitamin D3) 2,000 unit PO DAILY 03/10/17 03/10/17 03/09/17 [Vitamin D3] Loperamide HCl [Anti-Diarrheal] 2 mg PO QID PRN 03/10/17 03/10/17 Unknown Previous Rx's Medication Instructions Recorded Ondansetron [Zofran Odt] 4 mg PO Q8H PRN #15 tab.rapdis 09/12/16 Allergies Allergy/AdvReac Type Severity Reaction Status Date / Time Penicillins [PENICILLINS] Allergy Unknown PT UNSURE Verified 11/23/16 10:02 OF REACTION levofloxacin [LEVOFLOXACIN] AdvReac Unknown PAIN IN Verified 11/23/16 10:02 LEGS, UNABLE TO WALK Travel Screening - Travel/Exposure Within Last 30 Days Have you traveled within the last 30 days?: No - Travel Symptoms Symptom Screening: None Review of Systems Reviewed: No additional complaints except as noted below Constitutional: Reports: As per HPI. Denies: Chills, Fever, Malaise, Night sweats, Weakness, Weight change Eyes: Reports: As per HPI. Denies: Eye discharge, Eye pain, Photophobia, Vision change ENT: Reports: As per HPI. Denies: Congestion, Dental pain, Ear pain, Epistaxis , Hearing loss, Throat pain Respiratory: Reports: As per HPI. Denies: Cough, Dyspnea, Hemoptysis, Stridor, Wheezes Cardiovascular: Reports: As per HPI. Denies: Arrhythmia, Chest pain, Dyspnea on exertion, Edema, Murmurs, Orthopnea, Palpitations, Paroxysmal nocturnal dyspnea, Rheumatic Fever, Syncope Endocrine: Reports: As per HPI. Denies: Fatigue, Heat or cold intolerance, Polydipsia, Polyuria Gastrointestinal: Reports: As per HPI. Denies: Abdominal pain, Constipation, Diarrhea, Hematemesis, Hematochezia, Melena, Nausea, Vomiting Genitourinary: Reports: As per HPI. Denies: Abnormal menses, Discharge, Dyspareunia, Dysuria, Frequency, Hematuria, Incontinence, Retention, Urgency Musculoskeletal: Reports: As per HPI. Denies: Arthralgia, Back pain, Gout, Joint swelling, Myalgia, Neck pain Skin: Reports: As per HPI. Denies: Bruising, Change in color, Change in hair/ nails, Lesions, Pruritus, Rash Neurological: Reports: As per HPI. Denies: Abnormal gait, Confusion, Headache, Numbness, Paresthesias, Seizure, Tingling, Tremors, Vertigo, Weakness Psychiatric: Reports: As per HPI. Denies: Anxiety, Auditory hallucinations, Depression, Homicidal thoughts, Suicidal thoughts, Visual hallucinations Hematological/Lymphatic: Reports: As per HPI. Denies: Anemia, Blood Clots, Easy bleeding, Easy bruising, Swollen glands Past Medical History - SOCIAL HISTORY Smoking Status: Former smoker - RESPIRATORY Hx Respiratory Disorders: No - CARDIOVASCULAR Hx Cardio Disorders: Yes Hx Hypertension: Yes - NEURO Hx Neuro Disorders: Yes Comment:: Bels Palsy; Hydrocephalus; ataxic gait; - GI Hx GI Disorders: No - Hx Genitourinary Disorders: No - ENDOCRINE Hx Endocrine Disorders: No - MUSCULOSKELETAL Hx Musculoskeletal Disorders: Yes Hx Arthritis: Yes (polyosteoarthritis; osteoporosis) Comment:: pathological fxs - PSYCH Hx Psych Problems: Yes Hx Anxiety: Yes - HEMATOLOGY/ONCOLOGY Hx Hematology/Oncology Disorders: No Family Medical History Any Significant Family History?: No Family Hx Comment (NOT TO BE USED IN PLACE OF ITEMS BELOW): unknown Physical Exam - General General Appearance: Alert, Oriented x3, Cooperative, Mild distress - Head Head exam: Normal inspection - Eye Eye exam: Normal appearance, PERRL, EOMI Pupils: Normal accommodation - ENT ENT exam: Normal exam, Mucous membranes moist, Normal external ear exam, Normal orophraynx Ear exam: Normal external inspection. negative: External canal tenderness Nasal Exam: Normal inspection. negative: Discharge, Sinus tenderness Mouth exam: Normal external inspection, Tongue normal Teeth exam: Normal inspection. negative: Dental caries Throat exam: Normal inspection. negative: Tonsillar erythema, Tonsillar exudate - Neck Neck exam: Normal inspection, Full ROM. negative: Tenderness - Respiratory Respiratory exam: Normal lung sounds bilaterally. negative: Respiratory distress - Cardiovascular Cardiovascular Exam: Regular rate, Normal rhythm, Normal heart sounds - GI/Abdominal GI/Abdominal exam: Soft, Normal bowel sounds. negative: Tenderness - Rectal Rectal exam: Deferred - exam: Deferred - Extremities Extremities exam: Normal inspection, Full ROM, Normal capillary refill. negative: Tenderness - Back Back exam: Reports: Full ROM, Tenderness. Denies: Muscle spasm, Rash noted - Neurological Neurological exam: Alert, CN II-XII intact, Normal gait, Oriented X3 - Psychiatric Psychiatric exam: Normal affect, Normal mood - Skin Skin exam: Dry, Intact, Normal color, Warm, Other (ecchymosis on l arm and l leg ) Course Vital Signs 03/09/17 22:22 Temperature 98.3 F Pulse Rate [ 81 Pulse Ox Probe] Respiratory 20 Rate Blood Pressure 167/80 [Left Arm] Pulse Ox 94 L Medical Decision Making - Lab Data Result diagrams: 03/10/17 02:09 Lab Results 03/09/17 Range/Units 22:45 Urine Color Yellow Urine Appearance Clear Urine pH 7.5 (5.0-8.0) Ur Specific [place] 1.010 (1.002-1.030) Urine Protein Negative (NEGATIVE) Urine Glucose (UA) Negative (NEGATIVE) Urine Ketones Negative (NEGATIVE) Urine Blood Small H (NEGATIVE) Urine Nitrite Negative (NEGATIVE) Urine Bilirubin Negative (NEGATIVE) Urine Urobilinogen 0.2 (0.20 - 1.00) E.U./dL Ur Leukocyte Esterase Negative (NEGATIVE) Urine RBC 0 - 2 (NONE SEEN) Urine WBC 0 - 2 (0-2/hpf) Disposition Disposition: Transfer Clinical Impression: Traumatic compression fracture of T3 thoracic vertebra Qualifiers: Encounter type: initial encounter Fracture type: closed Qualified Code(s): S22.030A - Wedge compression fracture of third thoracic vertebra, initial encounter for closed fracture Disposition: Acute Care Hospital Transfer Transfer To: [facility] Reason For Transfer: t-3 comp fx Accepting Physician: dr virk Time Discussed w/Accepting Physician: 02:14 Forms: Patient Portal Access Quality - Quality Measures Quality Measures: N/A - Blood Pressure Screening Does Patient Have Any of the Following: Active Dx of HTN Blood Pressure Classification: Hypertensive Reading Systolic Measurement: 151 Diastolic Measurement: 54 Screening for High Blood Pressure: Patient Exclusion, Hx of HTN [G9744]
[2017-03-10 02:23] LABS: BASO % 0.3 % (0-6); EOS % 0.1 % (0-6); GRAN % 78.9 % (47-80); HEMATOCRIT 41.5 % (35.0-47.0); HEMOGLOBIN 13.4 gm/dl (11.6-16.0); LYMPH % 10.7 % (16-45); MEAN CORPUSCULAR HEMOGLOBIN 29.1 pg (27-33); MEAN CORPUSCULAR HGB CONC 32.3 g/dl (32-36); MEAN PLATELET VOLUME 9.9 fl (7.4-10.4); PLATELET COUNT 188 K/uL (130-400); RED BLOOD COUNT 4.61 M/uL (3.80-5.40); RED CELL DISTRIBUTION WIDTH 13.3 % (11.5-14.5); WHITE BLOOD COUNT W/O DIFF 11.3 K/uL (4.2-12.2)
--- NOTE | 2017-03-11 10:44 | CT SCAN REPORT ---
DATE: 03/09/2017. EXAM: CT OF THE BRAIN WITHOUT CONTRAST. HISTORY: Fall. COMPARISON: 11/23/2016. TECHNIQUE: Sequential axial images were obtained from the foramen magna to the vertex without contrast administration. FINDINGS: There is a right posterior parietal ventricular shunt in place. There is ventriculomegaly. There is age-appropriate cortical atrophy. There is periventricular small-vessel ischemia. There is no large territorial infarct , hemorrhage, mass effect, or midline shift. The orbits, paranasal sinuses, and mastoid air cells appear normal. IMPRESSION: 1. RIGHT POSTERIOR PARIETAL VENTRICULAR SHUNT. STABLE SIZE OF THE VENTRICLES. 2. 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 JOB NUMBER: [id number] MTDD
--- NOTE | 2017-03-11 11:06 | RADIOLOGY REPORT ---
DATE: 03/09/2017. EXAM: TWO-VIEW, HUMERUS. HISTORY: Injury. TECHNIQUE: AP and lateral views of the right humerus were performed. FINDINGS: There is osteopenia. No evidence of fracture of dislocation involving the humerus. There is a fracture deformity involving the radial head. IMPRESSION: OSTEOPENIA. NO EVIDENCE OF ACUTE FRACTURE OR DISLOCATION. JOB NUMBER: [id number] MTDD
--- NOTE | 2017-03-11 11:12 | CT SCAN REPORT ---
DATE: 03/09/2017. EXAM: CT OF THE CERVICAL SPINE WITHOUT CONTRAST. HISTORY: Fall. TECHNIQUE: Sequential axial images are obtained of the cervical spine without intravenous contrast administration. Sagittal and coronal reformatted images were performed. FINDINGS: There is underlying osteopenia. There is multilevel degenerative change most pronounced at the atlantoaxial junction. There is an acute compression fracture deformity involving the T3 vertebral body. There is minimal retropulsion of the inferior endplate into the spinal canal. No fracture deformities in the cervical spine. IMPRESSION: 1. UNDERLYING OSTEOPENIA. DEGENERATIVE CHANGE MOST PRONOUNCED AT THE ATLANTOAXIAL JUNCTION. 2. ACUTE COMPRESSION FRACTURE DEFORMITY OF THE T3 VERTEBRAL BODY WITH RETROPULSION OF THE INFERIOR ENDPLATE FRACTURE INTO THE SPINAL CANAL. JOB NUMBER: [id number] MTDD
--- NOTE | 2017-03-11 11:31 | RADIOLOGY REPORT ---
DATE: 03/09/2017. EXAM: AP SUPINE VIEW, CHEST. HISTORY: Injury. TECHNIQUE: Portable AP supine view of the chest was performed. FINDINGS: Heart size is normal. No pulmonary vasculature congestion. No infiltrate or pleural infusion. The osseous structures as visualized are normal. IMPRESSION: NO ACUTE DISEASE PROCESS. JOB NUMBER: [id number] MTDD
--- NOTE | 2017-03-11 11:38 | RADIOLOGY REPORT ---
DATE: 03/09/2017. EXAM: LUMBAR SPINE. HISTORY: Injury. TECHNIQUE: AP and lateral views of the lumbar spine were performed. FINDINGS: There is normal vertebral body height and alignment. There is underlying osteopenia. There is a mild levoconvex scoliotic curvature. Ventriculoperitoneal shunt catheter tip is in the central pelvis. No displacement of bowel. No bowel obstruction. No free air. IMPRESSION: 1. OSTEOPENIA. NO ACUTE PROCESS IN THE LUMBAR SPINE. MILD LEVOCONVEX SCOLIOTIC CURVATURE. 2. VENTRICULOPERITONEAL SHUNT TIP IS IN THE CENTRAL PELVIS. NO DISPLACEMENT OF BOWEL. JOB NUMBER: [id number] MTDD
== END 2017-03-10 02:55 | disposition short-term general hospital (02) ==
LOC: ER 22:16
DX: S22.030A Wedge compression fracture of third thoracic vertebra, initial encounter for closed fracture (principal); S09.90XA Unspecified injury of head, initial encounter; R05 Cough; W18.39XA Other fall on same level, initial encounter; Y92.121 Bathroom in nursing home as the place of occurrence of the external cause; I10 Essential (primary) hypertension; Z87.891 Personal history of nicotine dependence
CPT/HCPCS: 70450; 71010; 72100; 72125; 81001; 85025; 99285

== ENCOUNTER 2017-09-23 12:08 | Emergency (ER) | payer MEDICARE ==
[2017-09-23] MEDS ORDERED: ACETAMINOPHEN 325 MG TAB PO ONE (12:24)
--- NOTE | 2017-09-23 12:40 | Emergency Department Record ---
History of Present Illness - General Chief complaint: Lower Extremity Pain Stated complaint: LT LEG PAIN Time Seen by Provider: 09/23/17 12:21 Source: Patient, Family Mode of Arrival: Ambulatory Limitations: No limitations - History of Present Illness Initial comments: The patient is here due to L leg pain for 4 days. She denies any trauma or injury but states she is having pain to the area just below the L knee when walking and standing. There is no leg numbness, weakness, or calf pain or swelling. MD Complaint: Extremity pain Onset/Timin -: Days(s) Location: Lower Leg History of Same: No Radiation: Distal Consistency: Intermittent Improves with: Immobilization Worsens with: Walking, Weight bearing Associated Symptoms: Denies other symptoms - Related Data Previous Rx's Medication Instructions Recorded Ondansetron [Zofran Odt] 4 mg PO Q8H PRN #15 tab.rapdis 09/12/16 Acetaminophen [Tylenol] 650 mg PO QID #1 capsule 09/23/17 Allergies Allergy/AdvReac Type Severity Reaction Status Date / Time Penicillins [PENICILLINS] Allergy Unknown PT UNSURE Verified 09/23/17 12:16 OF REACTION levofloxacin [LEVOFLOXACIN] AdvReac Unknown PAIN IN Verified 09/23/17 12:16 LEGS, UNABLE TO WALK Travel Screening - Travel/Exposure Within Last 30 Days Have you traveled within the last 30 days?: No Review of Systems Constitutional: Denies: Chills, Fever Eyes: Denies: Eye discharge ENT: Denies: Congestion Respiratory: Denies: Cough, Dyspnea Past Medical History - SOCIAL HISTORY Smoking Status: Former smoker Alcohol Use: None Drug Use: None - RESPIRATORY Hx Respiratory Disorders: No - CARDIOVASCULAR Hx Cardio Disorders: Yes Hx Hypertension: Yes - NEURO Hx Neuro Disorders: Yes Comment:: Bels Palsy; Hydrocephalus; ataxic gait; - GI Hx GI Disorders: No - Hx Genitourinary Disorders: No - ENDOCRINE Hx Endocrine Disorders: No - MUSCULOSKELETAL Hx Musculoskeletal Disorders: Yes Hx Arthritis: Yes (polyosteoarthritis; osteoporosis) Comment:: pathological fxs - PSYCH Hx Psych Problems: Yes Hx Anxiety: Yes - HEMATOLOGY/ONCOLOGY Hx Hematology/Oncology Disorders: No Family Medical History Any Significant Family History?: No Family Hx Comment (NOT TO BE USED IN PLACE OF ITEMS BELOW): unknown Physical Exam - General General Appearance: Alert, Cooperative, No acute distress - Head Head exam: Atraumatic, Normocephalic, Normal inspection - Eye Eye exam: Normal appearance, PERRL - Respiratory Respiratory exam: Normal lung sounds bilaterally. negative: Respiratory distress - Cardiovascular Cardiovascular Exam: Regular rate, Normal rhythm, Normal heart sounds - GI/Abdominal GI/Abdominal exam: Soft, Normal bowel sounds. negative: Tenderness - Extremities Extremities exam: Normal inspection (There is no swelling, bruising, or edema.) , Full ROM, Normal capillary refill, Tenderness (There is tenderness to the anterior L proximal tibial area.), Other (The L leg is NVI with normal pulses distally.). negative: Calf tenderness, Joint swelling Image of Full Body: 1 - Area of pain and tenderness. Course Vital Signs 09/23/17 12:11 Temperature 99.1 F Pulse Rate 72 Respiratory 20 Rate Blood Pressure 137/65 Pulse Ox 92 L - Reevaluation(s) Reevaluation #1: I did explain to the patient and family that the leg xray is normal. She is to stay on Tylenol for pain and see her family doctor next week if not better. 09/23/17 13:01 Medical Decision Making - Data Complexity MDM Data: X-Ray Ordered and/or Reviewed - Radiology Data Radiology results: Report reviewed (L Lower leg: Neg for fx or any acute injury. ) Disposition Disposition: Discharge Clinical Impression: Leg pain, left Disposition: Home, Self-Care Condition: (2) Stable Instructions: Leg Pain (ED) Additional Instructions: Please use ice to the L leg when possible and try to elevate the area. Please use Tylenol for pain. Please see your family doctor for recheck if not better in 3 days. Return to the ER for any worsening issues or problems. Prescriptions: Acetaminophen [Tylenol] 650 mg PO QID #1 capsule Forms: Patient Portal Access Time of Disposition: 13:04 Quality - Quality Measures Quality Measures: N/A - Blunt Head Trauma - Adult ICD10 Codes Entered: Yes - Blood Pressure Screening View Details: Yes Does Patient Have Any of the Following: No Blood Pressure Classification: Pre-Hypertensive BP Reading Systolic Measurement: 137 Diastolic Measurement: 65 Screening for High Blood Pressure: < Pre-Hypertensive BP, F/U Documented > [ G8950] Pre-Hypertensive Follow-up Interventions: Referral to alternative/primary care provider.
--- NOTE | 2017-09-24 21:33 | RADIOLOGY REPORT ---
EXAM: LOWER LEG, LEFT HISTORY: LEFT LEG PAIN FOR THE PAST FOUR DAYS. NO KNOWN INJURY. TECHNIQUE: AP and lateral views of the left tibia and fibula were obtained. COMPARISON: Previous left knee series dated 10/16/2009. ENCOUNTER: Not applicable. FINDINGS: The bones are osteopenic but appear intact. There is no visible acute fracture, dislocation, or bony destructive process. There is mild nonspecific subcutaneous edema throughout the leg. IMPRESSION: 1. NO ACUTE OSSEOUS ABNORMALITY. 2. OSTEOPENIA. 3. NONSPECIFIC EDEMA WITHIN THE LOWER LEG. JOB NUMBER: [id number] MTDD
== END 2017-09-23 13:13 | disposition home or self-care (01) ==
LOC: ER 12:08
DX: M25.562 Pain in left knee (principal); I10 Essential (primary) hypertension; Z87.891 Personal history of nicotine dependence
CPT/HCPCS: 99283

== ENCOUNTER 2017-10-14 18:19 | Emergency (ER) | payer MEDICARE ==
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
[2017-10-14 19:17] LABS: BASO % 0.4 % (0-6); GRAN % 56.8 % (47-80); HEMATOCRIT 38.1 % (35.0-47.0); HEMOGLOBIN 12.1 gm/dl (11.6-16.0); LYMPH % 26.2 % (16-45); MEAN CELL VOLUME 93.6 fl (81-97); MEAN CORPUSCULAR HEMOGLOBIN 29.7 pg (27-33); MEAN CORPUSCULAR HGB CONC 31.8 g/dl (32-36); MEAN PLATELET VOLUME 10.2 fl (7.4-10.4); MONO % 14.6 % (0-9); PLATELET COUNT 208 K/uL (130-400); RED BLOOD COUNT 4.07 M/uL (3.80-5.40); RED CELL DISTRIBUTION WIDTH 14.1 % (11.5-14.5); WHITE BLOOD COUNT W/O DIFF 5.5 K/uL (4.2-12.2)
[2017-10-14 19:28] LABS: CREATININE 1.2 mg/dL (0.5-0.9)
[2017-10-14 19:31] LABS: URINE APPEARANCE CLEAR; URINE BILIRUBIN NEGATIVE (NEGATIVE); URINE BLOOD SMALL (NEGATIVE); URINE COLOR YELLOW; URINE GLUCOSE (UA) NEGATIVE (NEGATIVE); URINE KETONE NEGATIVE (NEGATIVE); URINE LEUKOCYTE ESTERASE NEGATIVE (NEGATIVE); URINE NITRITE NEGATIVE (NEGATIVE); URINE PROTEIN NEGATIVE (NEGATIVE); URINE UROBILINOGEN 0.2 E.U./dL (0.20 - 1.00)
[2017-10-14 19:38] LABS: URINE EPITHELIAL CELLS 0 - 2 (FEW); URINE RBC 0 - 2 (NONE SEEN); URINE WBC 0 - 2 (0-2/hpf)
--- NOTE | 2017-10-17 10:50 | CT SCAN REPORT ---
EXAM: HEAD CT HISTORY: FALL, HEAD INJURY. TECHNIQUE: Noncontrast head CT was obtained. Comparison: 03/09/17. FINDINGS: Ventricular prominence is again identified and remains stable. There is a right posterior parietal ventricular shunt in place, unchanged. Chronic hypodensity is present throughout the white matter similar to the previous study likely the result of chronic small vessel ischemic change. No mass or mass effect. No intra or extraaxial hemorrhage. No CT evidence for large acute territorial infarct. No fracture or acute osseous abnormality. The visualized sinuses and mastoid air cells are clear. IMPRESSION: 1. RIGHT POSTERIOR PARIETAL VENTRICULAR SHUNT STABLE AND UNCHANGED SINCE THE PREVIOUS STUDY. STABLE VENTRICULAR SIZE SINCE THE PREVIOUS EXAMINATION. 2. 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 3. NO MASS, HEMORRHAGE OR ACUTE INTRACRANIAL PROCESS. [facility]OB [facility]BER: [id number] [facility]
--- NOTE | 2017-10-17 10:56 | CT SCAN REPORT ---
EXAM: CT OF THE CERVICAL SPINE HISTORY: FALL, PAIN. TECHNIQUE: CT of the cervical spine was performed without contrast. Comparison: CT of the cervical spine 03/09/17. FINDINGS: There is underlying osteopenia. Diffuse multilevel degenerative changes are present most pronounced at the atlantoaxial junction, the C4-C5, C5- C6, and C6-C7 levels. No acute cervical spine fracture identified. There is an old fracture of T3 which is similar to the patient's previous examination. Uncovertebral spurring is present at multiple levels. The dens is unremarkable. No soft tissue mass or swelling identified. IMPRESSION: 1. NO ACUTE CERVICAL SPINE FRACTURE IDENTIFIED. 2. OLD COMPRESSION FRACTURE OF T3. 3. DIFFUSE ARTHRITIC CHANGES. [facility]: [id number] [facility]
== END 2017-10-14 21:28 | disposition home or self-care (01) ==
LOC: ER 18:19
DX: S00.03XA Contusion of scalp, initial encounter (principal); S09.90XA Unspecified injury of head, initial encounter; S51.811A Laceration without foreign body of right forearm, initial encounter; M54.2 Cervicalgia; R60.0 Localized edema; I10 Essential (primary) hypertension; Z87.891 Personal history of nicotine dependence; W01.10XA Fall on same level from slipping, tripping and stumbling with subsequent striking against unspecified object, initial encounter; Y92.099 Unspecified place in other non-institutional residence as the place of occurrence of the external cause
CPT/HCPCS: 70450; 72125; 80048; 81001; 85025; 99283; 99284

== ENCOUNTER 2017-10-15 03:53 | Emergency (ER) | payer MEDICARE ==
--- NOTE | 2017-10-15 04:04 | Emergency Department Record ---
History of Present Illness - General Chief Complaint: Fall Injury Stated Complaint: FALL Time Seen by Provider: 10/15/17 03:58 Source: Patient, EMS - History of Present Illness Initial Comments: The patient was seen here earlier this evening for the same complaint of falling. She states she tried to get her blankets from on the floor because she was cold. But she fell backwards hitting the back of her head. She states the back of her head is the only thing that is sore. She did not lose consciousness. She denies other complaints. MD Complaint: Fall - Related Data Previous Rx's Medication Instructions Recorded Ondansetron [Zofran Odt] 4 mg PO Q8H PRN #15 tab.rapdis 09/12/16 Acetaminophen [Tylenol] 650 mg PO QID #1 capsule 09/23/17 Allergies Allergy/AdvReac Type Severity Reaction Status Date / Time Penicillins [PENICILLINS] Allergy Unknown PT UNSURE Verified 10/15/17 03:55 OF REACTION levofloxacin [LEVOFLOXACIN] AdvReac Unknown PAIN IN Verified 10/15/17 03:55 LEGS, UNABLE TO WALK Review of Systems Reviewed: No additional complaints except as noted below Constitutional: Reports: As per HPI. Denies: Chills, Fever, Malaise, Night sweats, Weakness, Weight change Eyes: Reports: As per HPI. Denies: Eye discharge, Eye pain, Photophobia, Vision change ENT: Reports: As per HPI. Denies: Congestion, Dental pain, Ear pain, Epistaxis , Hearing loss, Throat pain Respiratory: Reports: As per HPI. Denies: Cough, Dyspnea, Hemoptysis, Stridor, Wheezes Cardiovascular: Reports: As per HPI. Denies: Arrhythmia, Chest pain, Dyspnea on exertion, Edema, Murmurs, Orthopnea, Palpitations, Paroxysmal nocturnal dyspnea, Rheumatic Fever, Syncope Endocrine: Reports: As per HPI. Denies: Fatigue, Heat or cold intolerance, Polydipsia, Polyuria Gastrointestinal: Reports: As per HPI. Denies: Abdominal pain, Constipation, Diarrhea, Hematemesis, Hematochezia, Melena, Nausea, Vomiting Genitourinary: Reports: As per HPI. Denies: Abnormal menses, Discharge, Dyspareunia, Dysuria, Frequency, Hematuria, Incontinence, Retention, Urgency Musculoskeletal: Reports: As per HPI. Denies: Arthralgia, Back pain, Gout, Joint swelling, Myalgia, Neck pain Skin: Reports: As per HPI. Denies: Bruising, Change in color, Change in hair/ nails, Lesions, Pruritus, Rash Neurological: Reports: As per HPI. Denies: Abnormal gait, Confusion, Headache, Numbness, Paresthesias, Seizure, Tingling, Tremors, Vertigo, Weakness Psychiatric: Reports: As per HPI. Denies: Anxiety, Auditory hallucinations, Depression, Homicidal thoughts, Suicidal thoughts, Visual hallucinations Hematological/Lymphatic: Reports: As per HPI. Denies: Anemia, Blood Clots, Easy bleeding, Easy bruising, Swollen glands Past Medical History - SOCIAL HISTORY Smoking Status: Former smoker Drug Use: None - RESPIRATORY Hx Respiratory Disorders: No - CARDIOVASCULAR Hx Cardio Disorders: Yes Hx Hypertension: Yes - NEURO Hx Neuro Disorders: Yes Comment:: Bels Palsy; Hydrocephalus; ataxic gait; - GI Hx GI Disorders: No - Hx Genitourinary Disorders: No - ENDOCRINE Hx Endocrine Disorders: No - MUSCULOSKELETAL Hx Musculoskeletal Disorders: Yes Hx Arthritis: Yes (polyosteoarthritis; osteoporosis) Comment:: pathological fxs - PSYCH Hx Psych Problems: Yes Hx Anxiety: Yes - HEMATOLOGY/ONCOLOGY Hx Hematology/Oncology Disorders: No Family Medical History Family Hx Comment (NOT TO BE USED IN PLACE OF ITEMS BELOW): unknown Physical Exam - General General Appearance: Alert, Oriented x3, Cooperative, No acute distress, Other ( C collar in place when patient arrived. ) - Head Head exam: Normal inspection Head exam detail: Contusion (contusion to occipital area of head. ). negative: CSF rhinorrhea, [place] eyes, Tenderness of temporal artery - Eye Eye exam: Normal appearance, PERRL Pupils: Normal accommodation - ENT ENT exam: Normal exam, Mucous membranes moist, Normal external ear exam, Normal orophraynx, TM's normal bilaterally Ear exam: Normal external inspection. negative: External canal tenderness Nasal Exam: Normal inspection. negative: Discharge, Sinus tenderness Mouth exam: Normal external inspection, Tongue normal Teeth exam: Normal inspection. negative: Dental caries Throat exam: Normal inspection. negative: Tonsillar erythema, Tonsillar exudate - Neck Neck exam: Normal inspection, Full ROM, Other (C collar in place). negative: Tenderness - Respiratory Respiratory exam: Normal lung sounds bilaterally. negative: Respiratory distress - Cardiovascular Cardiovascular Exam: Regular rate, Normal rhythm, Normal heart sounds - GI/Abdominal GI/Abdominal exam: Soft, Normal bowel sounds. negative: Tenderness - Rectal Rectal exam: Deferred - exam: Deferred - Extremities Extremities exam: Normal inspection, Full ROM, Normal capillary refill, Other ( left shoulder with very superficial abrasion but no bony tenderness and FROM is intact to shoulder with no pain.). negative: Tenderness - Back Back exam: Reports: Normal inspection, Full ROM. Denies: Muscle spasm, Rash noted, Tenderness - Neurological Neurological exam: Alert, CN II-XII intact, Normal gait, Oriented X3, Reflexes normal. negative: Altered, Motor sensory deficit - Psychiatric Psychiatric exam: Normal affect, Normal mood. negative: Homicidal ideation, Suicidal ideation - Skin Skin exam: Dry, Intact, Normal color, Warm Course - Reevaluation(s) Reevaluation #1: 10/15/17 04:05 As patient was seen here earlier this evening, less than 12 hours ago. Her labs and UA were not drawn again as they were done on the first visit. Spoke with the caregiver of Jane by phone and discussed placing her mattress on the floor for her to sleep on, frequent checks every 5-10 minutes, and moving of her room close to the nurse's station. Also a monitor for her bed to alarm when she attempts to get out of it could be ordered for her. 10/15/17 04:59 Medical Decision Making - Data Complexity MDM Data: Labs Ordered and/or Reviewed (labs and UA from earlier this evening were reviewed and wnl), X-Ray Ordered and/or Reviewed (Noncontrast Head and Cervical Spine CT's both negative for acute abnormality.) Disposition Disposition: Discharge Clinical Impression: Abrasion, shoulder w/o infection Fall Qualifiers: Encounter type: initial encounter Qualified Code(s): W19.XXXA - Unspecified fall, initial encounter Contusion of head Qualifiers: Encounter type: initial encounter Contusion of head detail: scalp Qualified Code(s): S00.03XA - Contusion of scalp, initial encounter Disposition: Home, Self-Care Condition: (1) Good Instructions: Fall Prevention for Older Adults (ED), Chronic Post Traumatic Headache (ED) Additional Instructions: Order bed alarm for patient. Place and keep mattress on floor fo patient to sleep on until bed alarm can be set up. Increase bed checks to every 5-10 minutes. Move patient's room closer to nurses' station. Forms: Patient Portal Access Quality - Quality Measures Quality Measures: N/A, Blunt Head Trauma (>2yr) - Blunt Head Trauma - Adult Quality Measure: Measure #415: Utilization of CT for Minor Blunt Head Trauma ICD10 Codes Entered: Yes Was CT ordered: Yes Does Patient Have Any of the Following: Ventricular Shunt Patient Presented Within 24 Hours of Injury: Yes [place] Score: Please complete [place] Coma Scale above Utilization of CT for Minor Blunt Head Trauma: < CT Done, Appropriate Indication > [G9529] Additional Inclusion Criteria: Within 24hrs (AND) GCS of 15 (AND) CT ordered. [ G9530] Indications For CT: Age 65 Years and Older - Blood Pressure Screening Does Patient Have Any of the Following: No Blood Pressure Classification: Pre-Hypertensive BP Reading Systolic Measurement: 139 Diastolic Measurement: 59 Screening for High Blood Pressure: < Pre-Hypertensive BP, F/U Documented > [ G8950] Pre-Hypertensive Follow-up Interventions: Follow-up with rescreen every year.
--- NOTE | 2017-10-17 11:42 | CT SCAN REPORT ---
EXAM: CT SCAN HEAD WO CONTRAST HISTORY: DIZZINESS. TECHNIQUE: CT brain without contrast. COMPARISON: Prior CT brain from 10/14/17. FINDINGS: Globes are intact. Paranasal sinuses and mastoid air cells are unremarkable. Stable postsurgical changes with ventriculostomy shunt entering from the right parieto-occipital region. The tip is in the left lateral ventricle. CT limited for the evaluation of acute infarct infarct. No CT evidence for large or territorial acute infarct. No mass or midline shift. Diffuse atrophy. Small vessel ischemic change. Small right parietal scalp hematoma suggested. Negative for acute intracranial hemorrhage. IMPRESSION: 1. LITTLE CHANGE FROM THE PRIOR EXAM. NEGATIVE FOR ACUTE INTRACRANIAL ABNORMALITY. SMALL RIGHT PARIETAL SCALP HEMATOMA. STABLE POSTSURGICAL CHANGE WITH VENTRICULOSTOMY CATHETER IN PLACE. 2. ATROPHY. SMALL VESSEL ISCHEMIC CHANGE. [facility]: [id number] [facility]
--- NOTE | 2017-10-17 11:47 | CT SCAN REPORT ---
EXAM: CT SCAN CERVICAL SPINE WO CONTRAST HISTORY: FALL. TECHNIQUE: Axial CT images of the cervical spine with coronal and sagittal reconstructions. COMPARISON: Prior CT from 03/09/17. FINDINGS: Evaluation of spinal canal content is limited due to CT technique. However, vertebral body height and alignment are preserved. Diffuse/multilevel degenerative change throughout the cervical spine. Chronic changes of the odontoid are noted, which may reflect prior trauma and/or degenerative change. Limited evaluation of the lung apices is unremarkable. IMPRESSION: NEGATIVE FOR ACUTE C-SPINE ABNORMALITY. [facility]BER: [id number] [facility]
== END 2017-10-15 05:35 | disposition home or self-care (01) ==
LOC: ER 03:53
DX: S00.03XA Contusion of scalp, initial encounter (principal); S40.212A Abrasion of left shoulder, initial encounter; R42 Dizziness and giddiness; I10 Essential (primary) hypertension; Z87.891 Personal history of nicotine dependence; W01.190A Fall on same level from slipping, tripping and stumbling with subsequent striking against furniture, initial encounter; Y92.003 Bedroom of unspecified non-institutional (private) residence as the place of occurrence of the external cause
CPT/HCPCS: 70450; 72125; 99283; 99284

== ENCOUNTER 2018-03-02 16:23 | Emergency (ER) | payer MEDICARE ==
--- NOTE | 2018-03-02 16:34 | Emergency Department Record ---
History of Present Illness - General Chief Complaint: Fall Injury Stated Complaint: FALL INJURY Time Seen by Provider: 03/02/18 16:32 Source: Patient, EMS Mode of Arrival: Stretcher Limitations: No limitations - History of Present Illness Initial Comments: 82 yo female present form [facility] after a fall. She states she became dizzy and fell. She hit her head on a chest on the floor. No LOC. She is not on any anticoagulants. No other recent changes in her health. She denies any other pain or injuries. She has chronic dizziness and instability. She had a PRORATE CLERK shunt placed about 3 years ago due to fluid accumulation. Complaint: Fall -: Minutes(s) Fall From: Standing When Fall Occurred: Just prior to arrival Fall Witnessed: Yes, by living facility staff Place Fall Occurred: half-way/SNF Loss of Consciousness: None Prolonged Down Time?: No Symptoms Prior to Fall: Dizziness Location: Head Severity: Mild Quality: Aching Associated Symptoms: Denies - Kin Coma Scale Eye Response: (4) Open spontaneously Motor Response: (6) Obeys commands Verbal Response: (5) Oriented [place] Total: 15 - Related Data Home Medications Medication Instructions Recorded Confirmed Last Taken Acetaminophen [Tylenol] 1,000 mg PO QID 03/02/18 03/02/18 03/02/18 Hydrochlorothiazide [Hctz 12.5MG] 12.5 mg PO DAILY 03/02/18 03/02/18 03/02/18 Omeprazole 40 mg PO DAILY 03/02/18 03/02/18 03/02/18 Propylene Glycol/Peg 400 [Systane 10 ml OP QHS 03/02/18 03/02/18 03/01/18 Gel Eye Drops] Previous Rx's Medication Instructions Recorded Ondansetron [Zofran Odt] 4 mg PO Q8H PRN #15 tab.rapdis 09/12/16 Allergies Allergy/AdvReac Type Severity Reaction Status Date / Time Penicillins [PENICILLINS] Allergy Unknown PT UNSURE Unverified 10/20/17 18:38 OF REACTION levofloxacin [LEVOFLOXACIN] AdvReac Unknown PAIN IN Unverified 10/20/17 18:38 LEGS, UNABLE TO WALK Review of Systems Constitutional: Denies: Chills, Fever, Weakness Eyes: Denies: Eye discharge ENT: Denies: Congestion, Throat pain Respiratory: Denies: Cough Cardiovascular: Denies: Chest pain, Syncope Endocrine: Denies: Fatigue Gastrointestinal: Denies: Diarrhea, Nausea, Vomiting Genitourinary: Denies: Dysuria Musculoskeletal: Reports: Neck pain (due to the C collar). Denies: Arthralgia, Back pain, Myalgia Skin: Denies: Bruising, Change in color Neurological: Reports: Vertigo. Denies: Confusion, Headache, Numbness, Paresthesias, Tingling, Tremors, Weakness Psychiatric: Denies: Anxiety Hematological/Lymphatic: Denies: Easy bleeding, Easy bruising, Swollen glands Past Medical History - SOCIAL HISTORY Smoking Status: Former smoker Drug Use: None - RESPIRATORY Hx Respiratory Disorders: No - CARDIOVASCULAR Hx Cardio Disorders: Yes Hx Hypertension: Yes - NEURO Hx Neuro Disorders: Yes Comment:: Bels Palsy; Hydrocephalus; ataxic gait; - GI Hx GI Disorders: No - Hx Genitourinary Disorders: No - ENDOCRINE Hx Endocrine Disorders: No - MUSCULOSKELETAL Hx Musculoskeletal Disorders: Yes Hx Arthritis: Yes (polyosteoarthritis; osteoporosis) Comment:: pathological fxs - PSYCH Hx Psych Problems: Yes Hx Anxiety: Yes - HEMATOLOGY/ONCOLOGY Hx Hematology/Oncology Disorders: No Family Medical History Family Hx Comment (NOT TO BE USED IN PLACE OF ITEMS BELOW): unknown Physical Exam - General General Appearance: Alert, Oriented x3, Cooperative, No acute distress Limitations: No limitations - Head Head exam: negative: Atraumatic Head exam detail: Laceration Image of Face/Head: 1 - 2.5cm liniear laceration to the scalp - Eye Eye exam: Normal appearance. negative: Conjunctival injection, Scleral icterus - ENT ENT exam: Normal exam Ear exam: Normal external inspection Nasal Exam: Normal inspection Mouth exam: Normal external inspection - Neck Neck exam: Normal inspection - Respiratory Respiratory exam: Normal lung sounds bilaterally. negative: Respiratory distress - Cardiovascular Cardiovascular Exam: Regular rate, Normal rhythm, Normal heart sounds - GI/Abdominal GI/Abdominal exam: Soft. negative: Tenderness - Rectal Rectal exam: Deferred - exam: Deferred - Extremities Extremities exam: Normal inspection, Full ROM. negative: Calf tenderness, Normal capillary refill, Pedal edema, Tenderness - Back Back exam: Denies: CVA tenderness (R), CVA tenderness (L) - Neurological Neurological exam: Alert, Oriented X3. negative: Altered - Psychiatric Psychiatric exam: Normal affect, Normal mood - Skin Type of lesion: Laceration Course - Reevaluation(s) Reevaluation #1: EKG #1: 1630 Rate: 63 Rhythm: sinus [place]: normal Intervals: normal ST segments: normal Normal EKG 03/02/18 17:05 The labs were reviewed No acute changes The scalp wound was copious cleaned with NS and ShurClens The laceration is about 2.5cm 03/02/18 17:27 Procedure Note 2.5 cm laceration of the scalp Wound was cleaned and prepped in sterile fashion The wound was copiously irrigated with NS and ShurClens Wound was anesthetized with mL of 1% Lidocaine with epinephrine The laceration was repaired with 4 myrtle placed with good wound approximation with care to stay clear of the palpable PRORATE CLERK shunt Patient tolerated the procedure well without complications. We discussed home care, reasons for immediate return if any concerns, and myrtle removal in 7 days 03/02/18 18:07 The HCT was read as no acute injury. PRORATE CLERK shunt noted The Cervical CT was read as degenerative changes otherwise no acute changes. Medical Decision Making - Lab Data Result diagrams: 03/02/18 16:40 03/02/18 16:40 Disposition Disposition: Discharge Clinical Impression: Scalp laceration Qualifiers: Encounter type: initial encounter Qualified Code(s): S01.01XA - Laceration without foreign body of scalp, initial encounter Disposition: Home, Self-Care Condition: (1) Good Instructions: Fall Prevention for Older Adults (ED), Staple Care (ED) Additional Instructions: Staple removal in one week Return or be seen if headache, vomiting, worsening dizziness or any new concerns Forms: Patient Portal Access Time of Disposition: 18:09 Quality - Quality Measures Quality Measures: N/A - Blood Pressure Screening Does Patient Have Any of the Following: Active Dx of HTN Blood Pressure Classification: Pre-Hypertensive BP Reading Systolic Measurement: 170 Diastolic Measurement: 82 Screening for High Blood Pressure: Patient Exclusion, Hx of HTN [G9744]
[2018-03-02 16:48] LABS: BASO % 0.6 % (0-6); EOS % 2.1 % (0-6); GRAN % 57.7 % (47-80); HEMATOCRIT 43.6 % (35.0-47.0); HEMOGLOBIN 13.7 gm/dl (11.6-16.0); LYMPH % 27.2 % (16-45); MEAN CELL VOLUME 92.4 fl (81-97); MEAN CORPUSCULAR HGB CONC 31.4 g/dl (32-36); MEAN PLATELET VOLUME 10.3 fl (7.4-10.4); MONO % 12.4 % (0-9); PLATELET COUNT 228 K/uL (130-400); RED BLOOD COUNT 4.72 M/uL (3.80-5.40); RED CELL DISTRIBUTION WIDTH 13.4 % (11.5-14.5); WHITE BLOOD COUNT W/O DIFF 5.3 K/uL (4.2-12.2)
[2018-03-02 17:03] LABS: PARTIAL THROMBOPLASTIN TIME 26.1 SECONDS (24.5-39.1)
[2018-03-02 17:11] LABS: BLOOD UREA NITROGEN 14 mg/dL (8-23); CREATININE 0.9 mg/dL (0.5-0.9); EST GLOMERULAR FILTRATION RATE > 60 mL/min
[2018-03-02 17:14] LABS: GLUCOSE,RANDOM 119 mg/dL (74-109)
[2018-03-02 18:19] LABS: URINE APPEARANCE CLEAR; URINE BILIRUBIN NEGATIVE (NEGATIVE); URINE BLOOD TRACE-I (NEGATIVE); URINE COLOR YELLOW; URINE GLUCOSE (UA) NEGATIVE (NEGATIVE); URINE KETONE NEGATIVE (NEGATIVE); URINE LEUKOCYTE ESTERASE TRACE (NEGATIVE); URINE NITRITE NEGATIVE (NEGATIVE); URINE PROTEIN NEGATIVE (NEGATIVE); URINE UROBILINOGEN 0.2 E.U./dL (0.20 - 1.00)
[2018-03-02 18:28] LABS: URINE BACTERIA FEW; URINE SQUAMOUS EPITHELIAL CELL 0 - 2 /hpf; URINE WBC 0 - 2 (0-2/hpf)
--- NOTE | 2018-03-05 12:54 | CT SCAN REPORT ---
EXAM: CT OF THE HEAD WITHOUT CONTRAST HISTORY: FALL INJURY. TECHNIQUE: CT of the head without contrast was obtained. Comparison: CT of the head without contrast 10/15/17. FINDINGS: There is a right parietal ventriculoperitoneal shunt tube present. Despite the shunt there is moderate hydrocephalus, unchanged from the prior exam. There is moderate periventricular small vessel ischemic change. There is no evidence of acute transcortical infarction. There is no evidence of hemorrhage, mass effect, or midline shift. The bones are unremarkable. The orbits and paranasal sinuses are clear. IMPRESSION: STABLE MODERATE HYDROCEPHALUS. MODERATE PERIVENTRICULAR SMALL VESSEL ISCHEMIC CHANGE. [facility]BER: [id number] [facility]
--- NOTE | 2018-03-05 12:57 | CT SCAN REPORT ---
EXAM: CT OF THE CERVICAL SPINE WITHOUT CONTRAST HISTORY: FALL INJURY. TECHNIQUE: CT of the cervical spine without contrast was obtained. FINDINGS: There are degenerative changes at C1-C2, C4-C5, C5-C6, and C6-C7 with small osteophytes and moderate disk space narrowing. There is, however, no evidence of acute fracture or malalignment. The vertebral body height is fairly well preserved. There is mild facet arthropathy in the mid and lower cervical spine. IMPRESSION: DJD WITHOUT FRACTURE OR ACUTE MALALIGNMENT. JOB NUMBER: [id number] [facility]
== END 2018-03-02 19:11 | disposition home or self-care (01) ==
LOC: ER 16:23
DX: S01.01XA Laceration without foreign body of scalp, initial encounter (principal); R42 Dizziness and giddiness; M54.2 Cervicalgia; I10 Essential (primary) hypertension; Z87.891 Personal history of nicotine dependence; W18.30XA Fall on same level, unspecified, initial encounter; Y92.129 Unspecified place in nursing home as the place of occurrence of the external cause
CPT/HCPCS: 12001; 70450; 72125; 80048; 81001; 85025; 85610; 85730; 93005; 93010; 99283; 99284

== ENCOUNTER 2018-03-23 20:49 | Emergency (ER) | payer MEDICARE ==
--- NOTE | 2018-03-23 21:06 | Emergency Department Record ---
History of Present Illness - General Chief Complaint: Fall Injury Stated Complaint: FALL INJURY Time Seen by Provider: 03/23/18 21:01 Source: Patient, EMS Mode of Arrival: EMS Limitations: No limitations - History of Present Illness Initial Comments: 82 yo female presents to ED for evaluation following a "dizzy spell" resulting in a fall backwards while getting out of the shower this evening. Patient denies LOC or focal weakness, reports similar falls resulting from dizzy spells previously. Patient denies chest pain, abdominal pain, chest pain, or extremity injury on examination. Patient denies the use of anticoagulation medications. MD Complaint: Fall Onset/Timin -: Minutes(s) Fall From: Standing When Fall Occurred: Just prior to arrival Fall Witnessed: No Place Fall Occurred: Home Loss of Consciousness: None Prolonged Down Time?: No Symptoms Prior to Fall: None Location: Head Severity: Mild - Kin Coma Scale Eye Response: (4) Open spontaneously Motor Response: (6) Obeys commands Verbal Response: (5) Oriented Kin Total: 15 - Related Data Previous Rx's Medication Instructions Recorded Ondansetron [Zofran Odt] 4 mg PO Q8H PRN #15 tab.rapdis 09/12/16 Allergies Allergy/AdvReac Type Severity Reaction Status Date / Time Penicillins [PENICILLINS] Allergy Unknown PT UNSURE Unverified 10/20/17 18:38 OF REACTION levofloxacin [LEVOFLOXACIN] AdvReac Unknown PAIN IN Unverified 10/20/17 18:38 LEGS, UNABLE TO WALK Travel Screening - Travel/Exposure Within Last 30 Days Have you traveled within the last 30 days?: No Review of Systems Constitutional: Denies: Chills, Fever, Malaise, Night sweats Eyes: Denies: Eye discharge, Eye pain, Photophobia ENT: Denies: Congestion, Ear pain, Epistaxis Respiratory: Denies: Cough, Dyspnea Cardiovascular: Denies: Chest pain, Dyspnea on exertion Endocrine: Denies: Fatigue, Heat or cold intolerance Gastrointestinal: Denies: Abdominal pain, Nausea, Vomiting Genitourinary: Denies: Incontinence, Retention Musculoskeletal: Reports: Back pain. Denies: Arthralgia, Gout, Joint swelling Skin: Denies: Bruising, Change in color Neurological: Reports: Headache. Denies: Abnormal gait, Confusion, Seizure Psychiatric: Denies: Anxiety Hematological/Lymphatic: Denies: Anemia, Blood Clots Past Medical History - SOCIAL HISTORY Smoking Status: Former smoker Alcohol Use: None Drug Use: None - RESPIRATORY Hx Respiratory Disorders: No - CARDIOVASCULAR Hx Cardio Disorders: Yes Hx Hypertension: Yes - NEURO Hx Neuro Disorders: Yes Comment:: Bels Palsy; Hydrocephalus; ataxic gait; - GI Hx GI Disorders: No - Hx Genitourinary Disorders: No - ENDOCRINE Hx Endocrine Disorders: No - MUSCULOSKELETAL Hx Musculoskeletal Disorders: Yes Hx Arthritis: Yes (polyosteoarthritis; osteoporosis) Comment:: pathological fxs - PSYCH Hx Psych Problems: Yes Hx Anxiety: Yes - HEMATOLOGY/ONCOLOGY Hx Hematology/Oncology Disorders: No Family Medical History Any Significant Family History?: No Family Hx Comment (NOT TO BE USED IN PLACE OF ITEMS BELOW): unknown Physical Exam - General General Appearance: Alert, Oriented x3, Cooperative, Mild distress Limitations: No limitations - Head Head exam: Atraumatic, Normocephalic, Normal inspection Head exam detail: negative: Abrasion, Contusion, Ramsey's sign, General tenderness, Hematoma, Laceration - Eye Eye exam: Normal appearance. negative: Conjunctival injection, Periorbital swelling, Periorbital tenderness, Scleral icterus - ENT Ear exam: negative: Auricular hematoma, Auricular trauma Nasal Exam: negative: Active bleeding, Discharge, Dried blood, Foreign body Mouth exam: negative: Drooling, Laceration, Muffled voice, Tongue elevation - Neck Neck exam: Normal inspection. negative: Meningismus, Tenderness - Respiratory Respiratory exam: Normal lung sounds bilaterally. negative: Rales, Respiratory distress, Rhonchi, Stridor - Cardiovascular Cardiovascular Exam: Regular rate, Normal rhythm, Normal heart sounds - GI/Abdominal GI/Abdominal exam: Soft. negative: Rebound, Rigid, Tenderness - Rectal Rectal exam: Deferred - exam: Deferred - Extremities Extremities exam: Normal inspection. negative: Calf tenderness, Pedal edema, Tenderness - Back Back exam: Denies: CVA tenderness (R), CVA tenderness (L) - Neurological Neurological exam: Alert, Oriented X3, Other (Montemayor's palsy right (chronic per patient)) - Psychiatric Psychiatric exam: Normal affect, Normal mood - Skin Skin exam: Normal color. negative: Abrasion Type of lesion: negative: abrasion Course Vital Signs 03/23/18 20:56 Temperature 99.0 F Pulse Rate [ 83 Left Brachial] Respiratory 20 Rate Blood Pressure 105/83 [Left Arm] Pulse Ox 100 - Reevaluation(s) Reevaluation #1: 03/23/18 22:24 CT Brain: No acute traumatic injury Right parietal ventriculostomy shunt in place Chronic small vessel ischemic disease CT Cervical Spine: Degenerative changes No acute traumatic injury identified. CT Thoracic Spine T3 compression fracture, minimally progressed from 2017 Lung nodules right, recommend follow-up Pneumobilia incidental finding Patient and her family member were updated on all results Cervical spine was cleared following negative imaging Patient appears stable for discharge at this time with instructions for follow- up re: lung nodules. Disposition Disposition: Discharge Clinical Impression: Fall Qualifiers: Encounter type: initial encounter Qualified Code(s): W19.XXXA - Unspecified fall, initial encounter Scalp contusion Qualifiers: Encounter type: initial encounter Qualified Code(s): S00.03XA - Contusion of scalp, initial encounter Disposition: Home, Self-Care Condition: (2) Stable Instructions: Fall Prevention for Older Adults (ED) Additional Instructions: Return to ED if your symptoms worsen or if you have any concerns. Follow-up with your family doctor in 3-5 days as directed. Follow-up with your family doctor for further evaluation of your lung nodules in 2-4 weeks (ICAL called to inform the patient of this). Forms: Patient Portal Access Time of Disposition: 22:26 Quality - Quality Measures Quality Measures: N/A, Blunt Head Trauma (>2yr) - [place] Coma Scale Kin Coma Scale: [place] Coma Scale Eye Response: (4) Open spontaneously Motor Response: (6) Obeys commands Verbal Response: (5) Oriented Kin Total: 15 - Blunt Head Trauma - Adult Quality Measure: Measure #415: Utilization of CT for Minor Blunt Head Trauma ICD10 Codes Entered: Yes Was CT ordered: Yes Does Patient Have Any of the Following: No Exclusions Patient Presented Within 24 Hours of Injury: Yes Kin Score: [address] for Minor Blunt Head Trauma: < CT Done, Appropriate Indication > [G9529] Additional Inclusion Criteria: Within 24hrs (AND) GCS of 15 (AND) CT ordered. [ G9530] Indications For CT: Age 65 Years and Older - Blood Pressure Screening Does Patient Have Any of the Following: No Blood Pressure Classification: Hypertensive Reading Systolic Measurement: 143 Diastolic Measurement: 63 Screening for High Blood Pressure: < First Hypertensive BP, F/U Documented > [ G8937] First Hypertensive Follow-up Interventions: Referral to alternative/primary care provider.
--- NOTE | 2018-03-24 22:04 | CT SCAN REPORT ---
EXAM: CT SCAN HEAD WO CONTRAST HISTORY: FELL AND HIT BACK OF HEAD. TECHNIQUE: Noncontrast CT head. COMPARISON: CT head 03/02/2018. FINDINGS: Right parietal approach ventriculostomy catheter, positioned similar from prior CT. Moderate ventriculomegaly, similar from prior examination. Moderate diffuse periventricular and subcortical white matter hypoattenuation, similar from prior. No midline shift. No abnormal intra or extraaxial fluid collection. No evidence of acute intracranial hemorrhage. No displaced calvarial fracture is detected. Visualized paranasal sinuses and mastoid air cells are clear. IMPRESSION: 1. NO EVIDENCE OF ACUTE INTRACRANIAL HEMORRHAGE OR DISPLACED SKULL FRACTURE. 2. RIGHT-SIDED VENTRICULOSTOMY CATHETER AGAIN NOTED. STABLE VENTRICULOMEGALY. 3. STABLE CHRONIC SMALL VESSEL ISCHEMIC WHITE MATTER CHANGES. [facility]BER: [id number] [facility]
--- NOTE | 2018-03-24 22:09 | CT SCAN REPORT ---
EXAM: CT SCAN CERVICAL SPINE WO CONTRAST HISTORY: FALL WITH NECK PAIN. TECHNIQUE: Noncontrast CT cervical spine. COMPARISON: CT cervical spine 03/02/2018. FINDINGS: No acute fracture detected. No evidence of dislocation. Vertebral body heights appear intact and stable from prior CT. Multilevel cervical spine degenerative changes with disc height loss and small endplate osteophytes as well as diffuse facet arthrosis, right greater than left. Neural foraminal stenosis at C4-5. Bilateral neural foraminal stenosis at C5-6. Intact appearance of partially visualized right neck shunt catheter tubing. IMPRESSION: 1. NO EVIDENCE OF ACUTE CERVICAL SPINE FRACTURE OR DISLOCATION. 2. CERVICAL SPINE DEGENERATIVE CHANGES, WHICH APPEAR SIMILAR FROM COMPARISON ON 03/02/2018. JOB NUMBER: [id number] [facility]
--- NOTE | 2018-03-24 22:20 | CT SCAN REPORT ---
EXAM: CT SCAN THORACIC SPINE WO CONTRAST HISTORY: FALL WITH BACK PAIN. TECHNIQUE: Noncontrast CT of the thoracic spine. COMPARISON: CT cervical spine on 03/09/2017. CT chest 03/06/2012. FINDINGS: There is a compression deformity of the T3 vertebral body with greater than 50% height loss, as well as a retropulsed inferior vertebral body fragment. Degree of compression deformity has progressed since 2017 comparison. Possibly mild central spinal canal stenosis related to retropulsion. No new areas of vertebral body height loss. No evidence of acute fracture or dislocation. Predominately upper and mid thoracic spondylosis with anterior endplate osteophytes and mild facet arthropathy. There is a pleural-based soft tissue nodule within the lingula of the left upper lobe measuring up to 2.5 cm, appearing overall similar from 2012 comparison. Nodular densities in the right middle lobe measuring up to 5 mm, not seen on 2012 comparison. Focal pleural nodularity within the posterior right upper lobe measuring up to 6 mm. Partially visualized shunt catheter coursing through the right anterior chest soft tissues appears intact. Pneumobilia is incidentally noted in the liver. IMPRESSION: 1. NO DEFINITE ACUTE OSSEOUS FINDINGS INVOLVING THE THORACIC SPINE. 2. SEVERE VERTEBRAL COMPRESSION DEFORMITY OF T3; FINDING WAS PRESENT ON A 2017 CT CERVICAL SPINE COMPARISON. DEGREE OF VERTEBRAL BODY HEIGHT LOSS HAS PROGRESSED SINCE PRIOR STUDY. THERE IS OSSEOUS RETROPULSION WITH POSSIBLE NARROWING OF THE CENTRAL SPINAL CANAL AT THIS LEVEL, SEEN PREVIOUSLY. 3. MULTIPLE INCIDENTAL PULMONARY NODULES. A LARGE PLEURAL-BASED NODULE IN THE LINGULA APPEARS SIMILAR FROM [address] CHEST. APPARENT NEW NODULES IN THE RIGHT LUNG ARE NOTED MEASURING UP TO [address] FOLLOW-UP CT OF THE CHEST IN SIX MONTHS IS SUGGESTED TO ASSESS FOR STABILITY. 4. PNEUMOBILIA IS INCIDENTALLY NOTED IN THE LIVER. FINDINGS ARE NONSPECIFIC AND COULD BE SEEN IN THE SETTING OF PRIOR BILIARY INTERVENTION OR A PATULOUS SPHINCTER OF ODDI. [facility]: [id number] [facility]
== END 2018-03-23 23:06 | disposition home or self-care (01) ==
LOC: ER 20:49
DX: S00.03XA Contusion of scalp, initial encounter (principal); R42 Dizziness and giddiness; R91.8 Other nonspecific abnormal finding of lung field; M54.6 Pain in thoracic spine; M54.2 Cervicalgia; I10 Essential (primary) hypertension; Y93.E1 Activity, personal bathing and showering; Y92.121 Bathroom in nursing home as the place of occurrence of the external cause; Z87.891 Personal history of nicotine dependence
CPT/HCPCS: 70450; 72125; 72128; 99283; 99284

== ENCOUNTER 2018-05-03 11:20 | Emergency (ER) | payer MEDICARE ==
--- NOTE | 2018-05-03 11:34 | Emergency Department Record ---
History of Present Illness - General Chief Complaint: Fall Injury Stated Complaint: FALL Time Seen by Provider: 05/03/18 11:28 Source: Patient, EMS Mode of Arrival: Stretcher Limitations: No limitations - History of Present Illness Initial Comments: 82 yo female presents after a fall at [facility]. She states she has a history of frequent falls. She has chronic balance issues. She has a EMERGENCY DEPARTMENT shunt. She states she has been in her usual states of health. No headache , vomiting, dizziness, pain. She denies any current pain. No joint or muscle pain. No neck pain. No blood thinners. She has no specific health concerns or complaints at this time. MD Complaint: Fall -: Hour(s) (1) Fall From: Standing When Fall Occurred: Just prior to arrival Fall Witnessed: Yes, by living facility staff Place Fall Occurred: [facility]P/SNF Loss of Consciousness: None Prolonged Down Time?: No Symptoms Prior to Fall: None Location: Head Severity: Mild Quality: Other (No pain) Associated Symptoms: Denies - Kin Coma Scale Eye Response: (4) Open spontaneously Motor Response: (6) Obeys commands Verbal Response: (5) Oriented Clifford Total: 15 - Related Data Home Medications Medication Instructions Recorded Confirmed Last Taken Carboxymethylcellulose Sodium 1 drop EACH EYE TID 05/03/18 05/03/18 05/03/18 [Refresh Tears] Hydrocodone/Acetaminophen [Sanders 1 tab PO ASDIR 05/03/18 05/03/18 Unknown 5-325 Tablet] Polyvinyl Alcohol [Akwa Tears] 1 drop OPTH QHS 05/03/18 05/03/18 05/02/18 Previous Rx's Medication Instructions Recorded Ondansetron [Zofran Odt] 4 mg PO Q8H PRN #15 tab.rapdis 09/12/16 Allergies Allergy/AdvReac Type Severity Reaction Status Date / Time Penicillins [PENICILLINS] Allergy Unknown PT UNSURE Verified 05/03/18 11:24 OF REACTION levofloxacin [LEVOFLOXACIN] AdvReac Unknown PAIN IN Verified 05/03/18 11:24 LEGS, UNABLE TO WALK Review of Systems Constitutional: Denies: Chills, Fever, Malaise, Weakness Eyes: Denies: Eye discharge, Photophobia ENT: Denies: Congestion, Throat pain Respiratory: Denies: Cough Cardiovascular: Denies: Chest pain, Palpitations, Syncope Endocrine: Denies: Fatigue Gastrointestinal: Denies: Abdominal pain, Diarrhea, Nausea, Vomiting Genitourinary: Denies: Dysuria Musculoskeletal: Denies: Arthralgia, Back pain, Joint swelling, Myalgia Skin: Reports: As per HPI, Bruising Neurological: Reports: Vertigo (chronic balance difficulty). Denies: Confusion , Headache, Numbness, Weakness Psychiatric: Denies: Anxiety Hematological/Lymphatic: Denies: Blood Clots, Easy bleeding, Easy bruising, Swollen glands Past Medical History - SOCIAL HISTORY Smoking Status: Former smoker Drug Use: None - RESPIRATORY Hx Respiratory Disorders: No - CARDIOVASCULAR Hx Cardio Disorders: Yes Hx Hypertension: Yes - NEURO Hx Neuro Disorders: Yes Comment:: Bels Palsy; Hydrocephalus; ataxic gait; - GI Hx GI Disorders: No - Hx Genitourinary Disorders: No - ENDOCRINE Hx Endocrine Disorders: No - MUSCULOSKELETAL Hx Musculoskeletal Disorders: Yes Hx Arthritis: Yes (polyosteoarthritis; osteoporosis) Comment:: pathological fxs - PSYCH Hx Psych Problems: Yes Hx Anxiety: Yes - HEMATOLOGY/ONCOLOGY Hx Hematology/Oncology Disorders: No Family Medical History Family Hx Comment (NOT TO BE USED IN PLACE OF ITEMS BELOW): unknown Physical Exam - General General Appearance: Alert, Oriented x3, Cooperative, No acute distress Limitations: No limitations - Head Head exam: negative: Atraumatic Head exam detail: Contusion Image of Face/Head: 1 - swelling and bruising, intact skin - Eye Eye exam: Normal appearance, PERRL, Periorbital swelling, Periorbital tenderness. negative: Conjunctival injection - ENT ENT exam: Normal exam, Mucous membranes moist, Normal orophraynx. negative: Mucous membranes dry Ear exam: Normal external inspection Nasal Exam: Normal inspection Mouth exam: Normal external inspection - Neck Neck exam: Normal inspection, Full ROM, Other (No tenderness, full passive and active ROM, no pain or tenderness). negative: Tenderness - Respiratory Respiratory exam: Normal lung sounds bilaterally. negative: Respiratory distress - Cardiovascular Cardiovascular Exam: Regular rate, Normal rhythm, Normal heart sounds Peripheral Pulses: 2+: Radial (R), Radial (L) - GI/Abdominal GI/Abdominal exam: Soft. negative: Tenderness - Rectal Rectal exam: Deferred - exam: Deferred - Extremities Extremities exam: Full ROM, Normal capillary refill. negative: Joint swelling, Tenderness Image of Full Body: 1 - 1-2cm abrasion - Back Back exam: Reports: Full ROM. Denies: CVA tenderness (R), CVA tenderness (L), Tenderness - Neurological Neurological exam: Alert, Oriented X3 - Psychiatric Psychiatric exam: Normal affect, Normal mood - Skin Skin exam: Dry, Intact, Normal color, Warm Course - Reevaluation(s) Reevaluation #1: 05/03/18 12:46 No acute changes or injuries on the HCT No changes from the prior The patient has no new complaints or pains at this time Disposition Disposition: Discharge Clinical Impression: Fall, Scalp contusion Disposition: Home, Self-Care Condition: (1) Good Instructions: Fall Prevention for Older Adults (ED) Additional Instructions: Apply ice to any tender or bruised areas Follow up with your doctor for a recheck Always seek help with walking or moving to avoid falls Forms: Patient Portal Access Time of Disposition: 12:47 Quality - Quality Measures Quality Measures: N/A, Blunt Head Trauma (>2yr) - Kin Coma Scale Eye Response: (4) Open spontaneously Motor Response: (6) Obeys commands Verbal Response: (5) Oriented Kin Total: 15 - Blunt Head Trauma - Adult Quality Measure: Measure #415: Utilization of CT for Minor Blunt Head Trauma ICD10 Codes Entered: Yes Was CT ordered: Yes Does Patient Have Any of the Following: Ventricular Shunt Clifford Score: [address] for Minor Blunt Head Trauma: Patient Excluded [G9531] - Blood Pressure Screening Does Patient Have Any of the Following: Active Dx of HTN Blood Pressure Classification: Hypertensive Reading Systolic Measurement: 142 Diastolic Measurement: 67 Screening for High Blood Pressure: Patient Exclusion, Hx of HTN [G9744]
--- NOTE | 2018-05-05 21:48 | CT SCAN REPORT ---
EXAM: CT SCAN HEAD WO CONTRAST HISTORY: FALL, HEAD INJURY. TECHNIQUE: Noncontrast CT of the brain. COMPARISON: Noncontrast CT brain 03/23/2018. FINDINGS: No midline shift, mass effect, or abnormal intra or extraaxial fluid collection. No cerebral edema, focal mass, or intracranial hemorrhage is detected. Similar appearance of right parietal approach ventriculostomy catheter. Ventriculomegaly appears similar appears similar from prior examination. Diffuse periventricular white matter hypoattenuation, similar from prior. Suggestion of a resection cavity in the right mastoid bone, similar from prior. No displaced calvarial fracture is detected. IMPRESSION: 1. NO ACUTE INTRACRANIAL FINDINGS. 2. RIGHT-SIDED VENTRICULOSTOMY CATHETER AND VENTRICULOMEGALY, APPEARING SIMILAR FROM RECENT COMPARISON. JOB NUMBER: [id number] MTDD
== END 2018-05-03 13:46 | disposition home or self-care (01) ==
LOC: ER 11:20
DX: S00.03XA Contusion of scalp, initial encounter (principal); S50.312A Abrasion of left elbow, initial encounter; Z91.81 History of falling; W19.XXXA Unspecified fall, initial encounter; Z87.891 Personal history of nicotine dependence; Y92.129 Unspecified place in nursing home as the place of occurrence of the external cause; I10 Essential (primary) hypertension
CPT/HCPCS: 70450; 99283

== ENCOUNTER 2018-05-13 18:33 | Emergency (ER) | payer MEDICARE ==
--- NOTE | 2018-05-13 18:38 | Emergency Department Record ---
History of Present Illness - General Chief Complaint: Fall Injury Stated Complaint: FALL Time Seen by Provider: 05/13/18 18:36 Source: Patient Mode of Arrival: EMS Limitations: No limitations - History of Present Illness Initial Comments: The patient is here due to a fall at [facility]. She was bending over in her closet to pick something up and fell over forward hitting her head on the floor. She had no LOC but since has had a mild VICTORIA. The patient denies any neck or back pain , CP, SOB or AP. She has a hx of frequent falls and has been to the ER frequently for it. The patient is not on any blood thinners. She also has been coughing for about a month and is concerned about it. MD Complaint: Fall Onset/Timin -: Hour(s) - Related Data Previous Rx's Medication Instructions Recorded Doxycycline Monohydrate [Mondoxyne 100 mg PO BID #14 capsule 05/13/18 Nl] Allergies Allergy/AdvReac Type Severity Reaction Status Date / Time Penicillins [PENICILLINS] Allergy Unknown PT UNSURE Verified 05/13/18 18:35 OF REACTION levofloxacin [LEVOFLOXACIN] AdvReac Unknown PAIN IN Verified 05/13/18 18:35 LEGS, UNABLE TO WALK Review of Systems Constitutional: Denies: Chills, Fever Eyes: Denies: Eye discharge ENT: Denies: Congestion Respiratory: Denies: Cough Cardiovascular: Denies: Arrhythmia Endocrine: Denies: Fatigue Gastrointestinal: Denies: Abdominal pain Genitourinary: Denies: Dysuria Musculoskeletal: Denies: Arthralgia Skin: Denies: Bruising Past Medical History - SOCIAL HISTORY Smoking Status: Former smoker Alcohol Use: None Drug Use: None - RESPIRATORY Hx Respiratory Disorders: No - CARDIOVASCULAR Hx Cardio Disorders: Yes Hx Hypertension: Yes - NEURO Hx Neuro Disorders: Yes Comment:: Bels Palsy; Hydrocephalus; ataxic gait; - GI Hx GI Disorders: No - Hx Genitourinary Disorders: No - ENDOCRINE Hx Endocrine Disorders: No - MUSCULOSKELETAL Hx Musculoskeletal Disorders: Yes Hx Arthritis: Yes (polyosteoarthritis; osteoporosis) Comment:: pathological fxs - PSYCH Hx Psych Problems: Yes Hx Anxiety: Yes - HEMATOLOGY/ONCOLOGY Hx Hematology/Oncology Disorders: No Family Medical History Any Significant Family History?: No Family Hx Comment (NOT TO BE USED IN PLACE OF ITEMS BELOW): unknown Physical Exam - General General Appearance: Alert, Oriented x3, Cooperative, No acute distress - Head Head exam: Normocephalic. negative: Atraumatic (There is a small contusion to the superior skull area.) - Eye Eye exam: Normal appearance, PERRL, EOMI - Neck Neck exam: Normal inspection, Full ROM. negative: Tenderness - Respiratory Respiratory exam: Normal lung sounds bilaterally. negative: Respiratory distress - Cardiovascular Cardiovascular Exam: Regular rate, Normal rhythm, Normal heart sounds - GI/Abdominal GI/Abdominal exam: Soft, Normal bowel sounds. negative: Tenderness - Extremities Extremities exam: Normal inspection, Full ROM, Normal capillary refill. negative: Tenderness - Neurological Neurological exam: Alert, Normal gait, Oriented X3. negative: Abnormal gait, Altered, Motor sensory deficit - Psychiatric Psychiatric exam: negative: Anxious Course - Reevaluation(s) Reevaluation #1: The patient is doing very well at this time. She is up walking normally with her walker and denies any head pain. We will place the patient on an oral Abx due to the cough and possible infiltrate on CXR. 05/13/18 20:12 05/13/18 20:19 Medical Decision Making - Data Complexity MDM Data: X-Ray Ordered and/or Reviewed - Radiology Data Radiology results: Report reviewed (Head and Neck CT: Neg for acute changes. CXR: Possible subtle infiltrate.) Disposition Disposition: Discharge Clinical Impression: Scalp contusion Qualifiers: Encounter type: initial encounter Qualified Code(s): S00.03XA - Contusion of scalp, initial encounter Fall Qualifiers: Encounter type: initial encounter Qualified Code(s): W19.XXXA - Unspecified fall, initial encounter Disposition: Home, Self-Care Condition: (2) Stable Instructions: Fall Prevention for Older Adults (ED), Chronic Cough (ED) Additional Instructions: Please continue your regular medicines and add Doxycycline as directed for the cough. Please see your family doctor next week for recheck and please return to the ER for any worsening symptoms. Prescriptions: Doxycycline Monohydrate [Mondoxyne Nl] 100 mg PO BID #14 capsule Forms: Patient Portal Access Time of Disposition: 20:14 Quality - Quality Measures Quality Measures: Blunt Head Trauma (>2yr) - Kin Coma Scale Eye Response: (4) Open spontaneously Motor Response: (6) Obeys commands Verbal Response: (5) Oriented Kin Total: 15 - Blunt Head Trauma - Adult Quality Measure: Measure #415: Utilization of CT for Minor Blunt Head Trauma ICD10 Codes Entered: Yes View Details: Yes Was CT ordered: Yes Does Patient Have Any of the Following: Ventricular Shunt Patient Presented Within 24 Hours of Injury: Yes Kin Score: [address] for Minor Blunt Head Trauma: Patient Excluded [G9531] - Blood Pressure Screening View Details: Yes Does Patient Have Any of the Following: No Blood Pressure Classification: Hypertensive Reading Systolic Measurement: 144 Diastolic Measurement: 61 Screening for High Blood Pressure: < First Hypertensive BP, F/U Documented > [ G8950] First Hypertensive Follow-up Interventions: Referral to alternative/primary care provider.
[2018-05-13] MEDS ORDERED: ONDANSETRON 4 MG ODT TABLET SL ONE (19:15)
--- NOTE | 2018-05-16 10:27 | RADIOLOGY REPORT ---
EXAM: CHEST 1 VIEW HISTORY: PATIENT HAS DRY COUGH FOR ONE MONTH. TECHNIQUE: A single AP portable view of the chest was provided along with a comparison study dated 03/09/2017. FINDINGS: The cardiac silhouette is within normal limits for size and contour. Prominent hilar pulmonary vasculature appears similar to the prior examination. Chronic interstitial changes are identified bilaterally. No pneumothorax is noted. There are subtle areas of patchy interstitial prominence within the bilateral lung zazueta suggesting possible superimposed interstitial infiltrates. Follow-up PA and lateral views of the chest can be obtained until resolution of findings. IMPRESSION: CHRONIC INTERSTITIAL SUBTLE CHANGES ARE IDENTIFIED WITH FINDINGS SUSPICIOUS FOR SUPERIMPOSED PATCHY INTERSTITIAL INFILTRATES. FOLLOW-UP PA AND LATERAL VIEWS OF THE CHEST CAN BE OBTAINED UNTIL RESOLUTION OF FINDINGS. JOB NUMBER: [id number] MTDD
--- NOTE | 2018-05-16 10:38 | CT SCAN REPORT ---
EXAM: CT SCAN HEAD WO CONTRAST HISTORY: HISTORY OF FALL. PAIN ON THE TOP OF THE HEAD. TECHNIQUE: Serial axial CT scan of the head was performed at 2.5 mm intervals from the base of the skull to the apex without the use of intravenous contrast. Sagittal and coronal reconstructions were provided. COMPARISON: Comparison CT scan of the head dated 05/03/2018, 03/23/2018, 2017, 10/15/2017, 10/14/2017, 03/09/2017, 11/23/2016. FINDINGS: Ventriculomegaly is again identified. The degree of ventriculomegaly appears similar to the previous CT scans dating back to 2016. There is again identified a ventricular shunt entering the right parietal cranium. The distal tip of the catheter is identified in the region of the left lateral horn. Position of this catheter is unchanged with respect to the prior examination. There is no mass or mass effect. Periventricular and subcortical decreased attenuation is noted, which may represent chronic small vessel ischemic changes. This finding is unchanged with respect to the prior examination. There is no intra or extraaxial fluid collection to suggest bleeding. Bone windows demonstrate no CT evidence of a fracture or dislocation of the skull. Paranasal sinuses are unremarkable. IMPRESSION: STABLE CT APPEARANCE OF THE BRAIN WITH RESPECT TO THE PRIOR EXAMINATIONS, DESCRIBED. NO ACUTE INTRACRANIAL PROCESS IS NOTED. RIGHT-SIDED VENTRICULAR SHUNT IS UNCHANGED IN LOCATION WITH RESPECT TO THE PRIOR EXAMINATION. JOB NUMBER: [id number] [facility]
--- NOTE | 2018-05-16 10:46 | CT SCAN REPORT ---
EXAM: CT SCAN CERVICAL SPINE WO CONTRAST HISTORY: FALL. TECHNIQUE: Serial axial CT scan of the cervical spine was performed at 2.5 mm intervals from the base of the skull to the thoracic inlet without the use of intravenous contrast. Sagittal and coronal reconstructions are provided. COMPARISON: Comparison CT scan of the cervical spine dated 03/23/[address] scan of the thoracic spine dated 03/23/2018 are provided. FINDINGS: The vertebral body height, contour, AP alignment of the cervical spine is within normal limits. Moderate disc space height loss is noted throughout the cervical spine disc spaces, which is similar to the prior CT scan. These findings are compatible with degenerative disc disease. Facet arthropathy is noted throughout the cervical spine. There is moderate anterior compression deformity of the T3 vertebral body, which can also be visualized on the prior CT scan of the thoracic spine done on 03/23/2018. This finding is unchanged with respect to the prior examination. There is no CT evidence of a new, acute fracture or dislocation of the cervical spine. The prevertebral soft tissue and parapharyngeal fat are unremarkable. The visualized parotid, submandibular glands are unremarkable. Heterogeneous nodules are identified within the bilateral thyroid lobes, which is unchanged with respect to the prior CT scan. If there is further clinical concern, then ultrasound examination of the thyroid gland can be obtained for further evaluation. There is no CT evidence of cervical lymphadenopathy. Lung windows of the lung apices are clear. Airways are patent. IMPRESSION: 1. MULTILEVEL DEGENERATIVE DISC DISEASE OF THE CERVICAL SPINE IS NOTED WITHOUT CT EVIDENCE OF AN ACUTE FRACTURE OR DISLOCATION OF THE CERVICAL SPINE. 2. THERE IS MODERATE TO SIGNIFICANT ANTERIOR COMPRESSION DEFORMITY OF THE T3 VERTEBRAL BODY, WHICH IS UNCHANGED WITH RESPECT TO THE PRIOR CT SCAN, DISCUSSED ABOVE. JOB NUMBER: [id number] [facility]
== END 2018-05-13 20:20 | disposition home or self-care (01) ==
LOC: ER 18:33
DX: R51 Headache (principal); R05 Cough; I10 Essential (primary) hypertension; Z87.891 Personal history of nicotine dependence; W01.198A Fall on same level from slipping, tripping and stumbling with subsequent striking against other object, initial encounter; Z91.81 History of falling; Y92.128 Other place in nursing home as the place of occurrence of the external cause
CPT/HCPCS: 70450; 71045; 72125; 99283; 99284

== ENCOUNTER 2018-10-09 16:34 | Emergency (ER) | payer MEDICARE ==
--- NOTE | 2018-10-09 17:05 | Emergency Department Record ---
History of Present Illness - General Chief Complaint: Fall Injury Stated Complaint: fall Time Seen by Provider: 10/09/18 16:50 Source: Patient, Family, EMS Mode of Arrival: EMS Limitations: Physical limitation - History of Present Illness Initial Comments: pt was brought in by ems after a fall. she hit her head. she does not remember the fall. she c/o pain in her back. pt has been here frequently for falls [more then 10 times] MD Complaint: Fall Onset/Timin -: Minutes(s) When Fall Occurred: Unsure Fall Witnessed: No Place Fall Occurred: Home Loss of Consciousness: Unsure Prolonged Down Time?: No Location: Head, Back Associated Symptoms: Denies - Lincoln Coma Scale Eye Response: (4) Open spontaneously Motor Response: (6) Obeys commands Verbal Response: (5) Oriented Kin Total: 15 - Related Data Home Medications Medication Instructions Recorded Confirmed Last Taken Cholecalciferol (Vitamin D3) 2,000 unit PO DAILY 10/09/18 10/09/18 10/09/18 [Vitamin D3] Hypromellose [Systane Gel] 10 gm OP QHS 10/09/18 10/09/18 Unknown Methyl Salicylate/Menthol 1 each TP QID PRN 10/09/18 10/09/18 Unknown [Salonpas Patch] Ondansetron HCl [Zofran] 4 mg PO Q8H PRN 10/09/18 10/09/18 Unknown Valsartan 320 mg PO DAILY 10/09/18 10/09/18 10/09/18 Allergies Allergy/AdvReac Type Severity Reaction Status Date / Time Penicillins [PENICILLINS] Allergy Unknown PT UNSURE Verified 10/09/18 17:04 OF REACTION levofloxacin [LEVOFLOXACIN] AdvReac Unknown PAIN IN Verified 10/09/18 17:04 LEGS, UNABLE TO WALK Travel Screening - Travel/Exposure Within Last 30 Days Have you traveled within the last 30 days?: No - Travel/Exposure Within Last Year Have you traveled outside the [place] in the last year?: No - Additonal Travel Details Have you been exposed to anyone with a communicable illness?: No - Travel Symptoms Symptom Screening: None Review of Systems Reviewed: No additional complaints except as noted below Constitutional: Reports: As per HPI. Denies: Chills, Fever, Malaise, Night sweats, Weakness, Weight change Eyes: Reports: As per HPI. Denies: Eye discharge, Eye pain, Photophobia, Vision change ENT: Reports: As per HPI. Denies: Congestion, Dental pain, Ear pain, Epistaxis, Hearing loss, Throat pain Respiratory: Reports: As per HPI. Denies: Cough, Dyspnea, Hemoptysis, Stridor, Wheezes Cardiovascular: Reports: As per HPI. Denies: Arrhythmia, Chest pain, Dyspnea on exertion, Edema, Murmurs, Orthopnea, Palpitations, Paroxysmal nocturnal dyspnea, Rheumatic Fever, Syncope Endocrine: Reports: As per HPI. Denies: Fatigue, Heat or cold intolerance, Polydipsia, Polyuria Gastrointestinal: Reports: As per HPI. Denies: Abdominal pain, Constipation, Diarrhea, Hematemesis, Hematochezia, Melena, Nausea, Vomiting Genitourinary: Reports: As per HPI. Denies: Abnormal menses, Discharge, Dyspareunia, Dysuria, Frequency, Hematuria, Incontinence, Retention, Urgency Musculoskeletal: Reports: As per HPI. Denies: Arthralgia, Back pain, Gout, Joint swelling, Myalgia, Neck pain Skin: Reports: As per HPI. Denies: Bruising, Change in color, Change in hair/nails, Lesions, Pruritus, Rash Neurological: Reports: As per HPI. Denies: Abnormal gait, Confusion, Headache, Numbness, Paresthesias, Seizure, Tingling, Tremors, Vertigo, Weakness Psychiatric: Reports: As per HPI. Denies: Anxiety, Auditory hallucinations, Depression, Homicidal thoughts, Suicidal thoughts, Visual hallucinations Hematological/Lymphatic: Reports: As per HPI. Denies: Anemia, Blood Clots, Easy bleeding, Easy bruising, Swollen glands Past Medical History - SOCIAL HISTORY Smoking Status: Former smoker Alcohol Use: None Drug Use: None - RESPIRATORY Hx Respiratory Disorders: No - CARDIOVASCULAR Hx Cardio Disorders: Yes Hx Hypertension: Yes - NEURO Hx Neuro Disorders: Yes Hx Dizziness: Yes Comment:: Bels Palsy; Hydrocephalus; ataxic gait; - GI Hx GI Disorders: No - Hx Genitourinary Disorders: No - ENDOCRINE Hx Endocrine Disorders: No - MUSCULOSKELETAL Hx Musculoskeletal Disorders: Yes Hx Arthritis: Yes (polyosteoarthritis; osteoporosis) Hx Back Injury: Yes (spinal fracture L3 approx 3 years ago.) Comment:: pathological fxs - PSYCH Hx Psych Problems: Yes Hx Anxiety: Yes - HEMATOLOGY/ONCOLOGY Hx Hematology/Oncology Disorders: No Family Medical History Any Significant Family History?: No Family Hx Comment (NOT TO BE USED IN PLACE OF ITEMS BELOW): unknown Physical Exam - General General Appearance: Alert, Oriented x3, Cooperative, Mild distress - Head Head exam: Normal inspection Head exam detail: Abrasion, Hematoma - Eye Eye exam: Normal appearance, PERRL, EOMI Pupils: Normal accommodation - ENT ENT exam: Normal exam, Mucous membranes moist, Normal external ear exam, Normal orophraynx Ear exam: Normal external inspection. negative: External canal tenderness Nasal Exam: Normal inspection. negative: Discharge, Sinus tenderness Mouth exam: Normal external inspection, Tongue normal Teeth exam: Normal inspection. negative: Dental caries Throat exam: Normal inspection. negative: Tonsillar erythema, Tonsillar exudate - Neck Neck exam: Normal inspection, Full ROM. negative: Tenderness - Respiratory Respiratory exam: Normal lung sounds bilaterally. negative: Respiratory distress - Cardiovascular Cardiovascular Exam: Regular rate, Normal rhythm, Normal heart sounds - GI/Abdominal GI/Abdominal exam: Soft, Normal bowel sounds. negative: Tenderness - Rectal Rectal exam: Deferred - exam: Deferred - Extremities Extremities exam: Normal inspection, Full ROM, Normal capillary refill. negative: Tenderness - Back Back exam: Reports: Full ROM, Tenderness. Denies: Muscle spasm, Rash noted - Neurological Neurological exam: Alert, CN II-XII intact, Normal gait, Oriented X3 - Psychiatric Psychiatric exam: Normal affect, Normal mood - Skin Skin exam: Dry, Intact, Normal color, Warm Course Vital Signs 10/09/18 16:38 Temperature 98.0 F Pulse Rate 70 Respiratory 16 Rate Blood Pressure 146/81 Pulse Ox 95 - Reevaluation(s) Reevaluation #1: 10/09/18 18:58 ct neg for acute findings. old t3 fx Disposition Disposition: Discharge Clinical Impression: Head injury Qualifiers: Encounter type: initial encounter Qualified Code(s): S09.90XA - Unspecified injury of head, initial encounter Disposition: Home, Self-Care Condition: (1) Good Instructions: Fall Prevention for Older Adults (ED), Head Injury (ED) Additional Instructions: follow up with family doctor. return sooner if worse. ice to sore areas Forms: Patient Portal Access Quality - Quality Measures Quality Measures: N/A - Blood Pressure Screening Does Patient Have Any of the Following: No Blood Pressure Classification: Pre-Hypertensive BP Reading Systolic Measurement: 146 Diastolic Measurement: 81 Screening for High Blood Pressure: < Pre-Hypertensive BP, F/U Documented > [G8950] Pre-Hypertensive Follow-up Interventions: Follow-up with rescreen every year.
[2018-10-09] MEDS ORDERED: ACETAMINOPHEN 500 MG TABLET PO ONE (18:50)
[2018-10-09] MEDS ORDERED: LIDOCAINE 5% PATCH TOP ONE (18:55)
--- NOTE | 2018-10-11 15:20 | CT SCAN REPORT ---
EXAM: CT SCAN OF THE CERVICAL SPINE HISTORY: PATIENT HAS A HISTORY OF FALL. TECHNIQUE: Serial axial CT scan of the cervical spine was performed at 2.5 mm intervals from the base of the skull to the thoracic inlet without the use of intravenous contrast. Sagittal and coronal reconstructions are provided. Comparison: CT scan of the cervical spine dated 05/13/18 is provided. FINDINGS: The vertebral body height, contour, and AP alignment of the cervical spine is within normal limits. Advanced disk space height loss with end plate sclerosis is noted at the C4-C5, C5-C6, and C6-C7 disk space levels. There is a well corticated osseous density at the distal tip of the dens which likely represents an accessory ossicle. There is a significant anterior and central compression deformity of the T3 vertebral body within the field of view which appears similar to the prior CT scan. There is fusion of the bilateral C2, C3, and C4 facets. There is no CT evidence of a fracture or dislocation of the cervical spine. The prevertebral soft tissue and parapharyngeal fat are unremarkable. The bilateral parotid and submandibular glands are unremarkable. Heterogeneous attenuation is noted within the thyroid gland with mild atrophy. Occasional heterogeneous nodules are also identified within the thyroid gland. These findings are unchanged with respect to the prior CT scan. There is no CT evidence of cervical lymphadenopathy. The airways are patent. The lung windows of the lung apices are unremarkable. IMPRESSION: 1. 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 THERE IS NO CT EVIDENCE OF A NEW, ACUTE FRACTURE OF THE CERVICAL SPINE. 2. 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 3. THE PATIENT HAS A VENTRICULAR OSTOMY SHUNT CATHETER IDENTIFIED THAT COURSES ALONG THE RIGHT LATERAL ASPECT OF THE NECK. NO OBVIOUS DISCONTINUITIES WITHIN THE VISUALIZED CATHETER ARE NOTED. JOB NUMBER: [id number] MTDD
--- NOTE | 2018-10-11 15:27 | CT SCAN REPORT ---
EXAM: CT SCAN OF THE HEAD HISTORY: PATIENT HAS A HISTORY OF FALL. TECHNIQUE: Serial axial CT scan of the head was performed at 2.5 mm intervals from the base of the skull to the apex without the use of intravenous contrast. Comparison: CT scan dated 05/13/18 is provided. FINDINGS: Moderate generalized parenchymal volume loss is noted. There is moderate ventriculomegaly which appears similar in size with respect to the prior examination. Extensive periventricular subcortical white matter chronic small vessel ischemic changes appear similar to the prior examination. There is no CT evidence of intra or extraaxial fluid collection to suggest bleeding. Bone windows demonstrate no CT evidence of fracture or dislocation of the skull. 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 Its distal tip is located adjacent to the midline in the left lateral horn. This finding is unchanged with respect to the prior examination. No obvious discontinuities of the shunt are identified within the visualized field. The paranasal sinuses are unremarkable. Postoperative changes of the right mastoid air cells are identified. IMPRESSION: 1. STABLE VENTRICULOMEGALY WITH RESPECT TO THE PRIOR EXAMINATION DISCUSSED ABOVE. 2. VENTRICULOSTOMY SHUNT CATHETER ENTERING THE RIGHT PARIETAL SKULL APPEARS SIMILAR IN LOCATION WITH RESPECT TO THE PRIOR EXAMINATION. NO OBVIOUS DISCONTINUITIES ARE IDENTIFIED OF THE CATHETER WITHIN THE FIELD OF VIEW. 3. NO ACUTE INTRACRANIAL PROCESS IS NOTED. JOB NUMBER: [id number] [facility]
--- NOTE | 2018-10-11 15:32 | RADIOLOGY REPORT ---
EXAM: THORACIC SPINE HISTORY: PATIENT HAS A HISTORY OF FALL. TECHNIQUE: Four views of the thoracic spine are provided along with the comparison CT scan of the thoracic spine dated 03/23/18. FINDINGS: There is mild levoconvex scoliosis of the upper thoracic spine. Mild dextroconvex scoliosis of the lower thoracic spine is noted. These findings appear similar to the prior examination. Bilateral pedicles, posterior spinous processes of the thoracic spine are within normal limits. There is significant anterior compression deformity of the T3 vertebral body which is unchanged with respect to the prior CT scan. Ther remaining visualized thoracic vertebral bodies demonstrate normal contour and size. There is a shunt catheter identified following the course along the anterolateral aspect of the right chest. 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 NO NEW COMPRESSION DEFORMITIES ARE IDENTIFIED. IF THERE IS FURTHER CLINICAL CONCERN THEN MRI OF THE THORACIC SPINE CAN BE OBTAINED FOR FURTHER EVALUATION. JOB NUMBER: [id number] MTDD
== END 2018-10-09 19:32 | disposition home or self-care (01) ==
LOC: ER 16:34
DX: S09.90XA Unspecified injury of head, initial encounter (principal); S40.012A Contusion of left shoulder, initial encounter; S41.019A Laceration without foreign body of unspecified shoulder, initial encounter; M54.6 Pain in thoracic spine; W19.XXXA Unspecified fall, initial encounter; Z91.81 History of falling; Y92.129 Unspecified place in nursing home as the place of occurrence of the external cause; I10 Essential (primary) hypertension; Z87.891 Personal history of nicotine dependence
CPT/HCPCS: 70450; 72072; 72125; 99283; 99284

== ENCOUNTER 2018-12-08 12:37 | Inpatient (IN) | payer MEDICARE ==
[2018-12-08 12:57] LABS: URINE APPEARANCE SL CLOUDY; URINE BILIRUBIN SMALL (NEGATIVE); URINE BLOOD MODERATE (NEGATIVE); URINE COLOR YELLOW; URINE GLUCOSE (UA) NEGATIVE (NEGATIVE); URINE KETONE 15 mg/dL (NEGATIVE); URINE LEUKOCYTE ESTERASE MODERATE (NEGATIVE); URINE NITRITE NEGATIVE (NEGATIVE)
[2018-12-08 13:04] LABS: URINE EPITHELIAL CELLS NONE SEEN (FEW); URINE WBC 16 - 20 (0-2/hpf)
[2018-12-08 13:13] LABS: HEMATOCRIT 43.4 % (35.0-47.0); HEMOGLOBIN 13.8 gm/dl (11.6-16.0); MEAN CELL VOLUME 93.5 fl (81-97); MEAN CORPUSCULAR HEMOGLOBIN 29.7 pg (27-33); MEAN CORPUSCULAR HGB CONC 31.8 g/dl (32-36); MEAN PLATELET VOLUME 10.1 fl (7.4-10.4); PLATELET COUNT 218 K/uL (130-400); RED BLOOD COUNT 4.64 M/uL (3.80-5.40); RED CELL DISTRIBUTION WIDTH 13.6 % (11.5-14.5); WHITE BLOOD COUNT W/O DIFF 12.8 K/uL (4.2-12.2)
[2018-12-08 13:23] LABS: PLATELET ESTIMATE NORMAL (NORMAL)
[2018-12-08 13:27] LABS: BLOOD UREA NITROGEN 11 mg/dL (8-23); CREATININE 0.8 mg/dL (0.5-0.9); EST GLOMERULAR FILTRATION RATE > 60 mL/min
[2018-12-08 13:28] LABS: TOTAL PROTEIN 6.9 g/dL (6.6-8.7)
[2018-12-08 13:30] LABS: GLUCOSE,RANDOM 152 mg/dL (74-109)
[2018-12-08 13:33] LABS: ALB/GLOB RATIO 1.2 (1.1-1.8); ALBUMIN 3.8 g/dL (4.0-5.0); ALKALINE PHOSPHATASE 136 U/L (35-104); ALT/SGPT 13 U/L (<33); AST/SGOT 23 U/L (10.0-35.0)
[2018-12-08] MEDS ORDERED: CEFTRIAXONE 1GM/50ML BAG 1 GM/50 ML BAG IVPB ONE (14:21)
--- NOTE | 2018-12-08 14:43 | Emergency Department Record ---
History of Present Illness - General Chief Complaint: Altered Mental Status Stated Complaint: ALTERED LEVEL OF RESPONSIVENESS Time Seen by Provider: 12/08/18 12:59 Source: Patient, EMS Mode of Arrival: EMS Limitations: No limitations - History of Present Illness Initial Comments: pt brought in from assisted living across the street for mental status changes. MD Complaint: Altered mental status -: Unknown Consistency: Getting worse Associated Symptoms: Fever/chills, Weakness - Kin Coma Scale Eye Response: (4) Open spontaneously Motor Response: (6) Obeys commands Verbal Response: (4) Confused conversation [place] Total: 14 - Related Data Home Medications Medication Instructions Recorded Confirmed Last Taken Aspirin [Aspir-Low] 81 mg PO DAILY 12/08/18 12/08/18 12/08/18 Ibuprofen 800 mg PO ASDIR 12/08/18 12/08/18 12/08/18 Mirabegron [Myrbetriq] 50 mg PO DAILY 12/08/18 12/08/18 12/08/18 Allergies Allergy/AdvReac Type Severity Reaction Status Date / Time Penicillins [PENICILLINS] Allergy Unknown PT UNSURE Verified 12/08/18 12:54 OF REACTION levofloxacin [LEVOFLOXACIN] AdvReac Unknown PAIN IN Verified 12/08/18 12:54 LEGS, UNABLE TO WALK Travel Screening - Travel/Exposure Within Last 30 Days Have you traveled within the last 30 days?: No Review of Systems Reviewed: No additional complaints except as noted below Constitutional: Reports: As per HPI, Weakness. Denies: Chills, Fever, Malaise, Night sweats, Weight change Eyes: Reports: As per HPI. Denies: Eye discharge, Eye pain, Photophobia, Vision change ENT: Reports: As per HPI. Denies: Congestion, Dental pain, Ear pain, Epistaxis, Hearing loss, Throat pain Respiratory: Reports: As per HPI. Denies: Cough, Dyspnea, Hemoptysis, Stridor, Wheezes Cardiovascular: Reports: As per HPI. Denies: Arrhythmia, Chest pain, Dyspnea on exertion, Edema, Murmurs, Orthopnea, Palpitations, Paroxysmal nocturnal dyspnea, Rheumatic Fever, Syncope Endocrine: Reports: As per HPI. Denies: Fatigue, Heat or cold intolerance, Polydipsia, Polyuria Gastrointestinal: Reports: As per HPI. Denies: Abdominal pain, Constipation, Diarrhea, Hematemesis, Hematochezia, Melena, Nausea, Vomiting Genitourinary: Reports: As per HPI. Denies: Abnormal menses, Discharge, D yspareunia, Dysuria, Frequency, Hematuria, Incontinence, Retention, Urgency Musculoskeletal: Reports: As per HPI. Denies: Arthralgia, Back pain, Gout, Joint swelling, Myalgia, Neck pain Skin: Reports: As per HPI. Denies: Bruising, Change in color, Change in hair/nails, Lesions, Pruritus, Rash Neurological: Reports: As per HPI, Confusion. Denies: Abnormal gait, Headache, Numbness, Paresthesias, Seizure, Tingling, Tremors, Vertigo, Weakness Psychiatric: Reports: As per HPI. Denies: Anxiety, Auditory hallucinations, Depression, Homicidal thoughts, Suicidal thoughts, Visual hallucinations Hematological/Lymphatic: Reports: As per HPI. Denies: Anemia, Blood Clots, Easy bleeding, Easy bruising, Swollen glands Past Medical History - SOCIAL HISTORY Smoking Status: Former smoker Alcohol Use: None Drug Use: None - RESPIRATORY Hx Respiratory Disorders: No - CARDIOVASCULAR Hx Cardio Disorders: Yes Hx Hypertension: Yes - NEURO Hx Neuro Disorders: Yes Hx Dizziness: Yes Comment:: Bels Palsy; Hydrocephalus; ataxic gait; - GI Hx GI Disorders: No - Hx Genitourinary Disorders: No - ENDOCRINE Hx Endocrine Disorders: No - MUSCULOSKELETAL Hx Musculoskeletal Disorders: Yes Hx Arthritis: Yes (polyosteoarthritis; osteoporosis) Hx Back Injury: Yes Comment:: pathological fxs - PSYCH Hx Psych Problems: Yes Hx Anxiety: Yes - HEMATOLOGY/ONCOLOGY Hx Hematology/Oncology Disorders: No Family Medical History Any Significant Family History?: No Family Hx Comment (NOT TO BE USED IN PLACE OF ITEMS BELOW): unknown Physical Exam - General General Appearance: Alert, Cooperative, Mild distress - Head Head exam: Normal inspection - Eye Eye exam: Normal appearance, PERRL, EOMI Pupils: Normal accommodation - ENT ENT exam: Normal exam, Mucous membranes moist, Normal external ear exam, Normal orophraynx Ear exam: Normal external inspection. negative: External canal tenderness Nasal Exam: Normal inspection. negative: Discharge, Sinus tenderness Mouth exam: Normal external inspection, Tongue normal Teeth exam: Normal inspection. negative: Dental caries Throat exam: Normal inspection. negative: Tonsillar erythema, Tonsillar exudate - Neck Neck exam: Normal inspection, Full ROM. negative: Tenderness - Respiratory Respiratory exam: Normal lung sounds bilaterally. negative: Respiratory distress - Cardiovascular Cardiovascular Exam: Regular rate, Normal rhythm, Normal heart sounds - GI/Abdominal GI/Abdominal exam: Soft, Normal bowel sounds. negative: Tenderness - Rectal Rectal exam: Deferred - exam: Deferred - Extremities Extremities exam: Normal inspection, Full ROM, Normal capillary refill. negative: Tenderness - Back Back exam: Reports: Normal inspection, Full ROM. Denies: Muscle spasm, Rash noted, Tenderness - Neurological Neurological exam: Alert, Altered, CN II-XII intact. negative: Oriented X3 - Psychiatric Psychiatric exam: Normal affect, Normal mood - Skin Skin exam: Dry, Intact, Normal color, Warm Course Vital Signs 12/08/18 12/08/18 12:48 13:53 Temperature 99.3 F Pulse Rate 81 Pulse Rate [ 83 Right] Respiratory 18 17 Rate Blood Pressure 139/90 Blood Pressure 132/50 [Left Arm] Pulse Ox 92 L 92 L Medical Decision Making - Lab Data Result diagrams: 12/08/18 13:00 12/08/18 13:00 Lab Results 12/08/18 12/08/18 12/08/18 Range/Units 12:50 13:00 13:00 WBC 12.8 H (4.2-12.2) K/uL RBC 4.64 (3.80-5.40) M/uL Hgb 13.8 (11.6-16.0) gm/dl Hct 43.4 (35.0-47.0) % MCV 93.5 (81-97) fl MCH 29.7 (27-33) pg MCHC 31.8 L (32-36) g/dl RDW 13.6 (11.5-14.5) % Plt Count 218 (130-400) K/uL MPV 10.1 (7.4-10.4) fl Neutrophils % 81.0 H (47-80) % Band Neutrophils % 6.0 H (0-5) % Eosinophils % Not Reportable Basophils % Not Reportable Absolute Neutrophils 10.70 Lymphocytes 5.0 L (16-45) % Monocytes 7.0 (0-9) % Platelet Estimate Normal (NORMAL) RBC Morphology Normal Eosinophil Count 1.0 (0-6) % Sodium 137 (136-145) mmol/L Potassium 3.3 L (3.4-4.5) mmol/L Chloride 96 L (98-107) mmol/L Carbon Dioxide 29.0 (22-29) mmol/L Anion Gap 12.0 (7-16) BUN 11 (8-23) mg/dL Creatinine 0.8 (0.5-0.9) mg/dL Estimated GFR > 60 mL/min Random Glucose 152 H (74-109) mg/dL Calcium 9.6 (8.8-10.2) mg/dL Total Bilirubin 2.20 H (0.2-1.0) mg/dL AST 23 (10.0-35.0) U/L ALT 13 (<33) U/L Alkaline Phosphatase 136 H (35-104) U/L Total Protein 6.9 (6.6-8.7) g/dL Albumin 3.8 L (4.0-5.0) g/dL Globulin 3.1 (1.4-4.8) gm/dL Albumin/Globulin Ratio 1.2 (1.1-1.8) Urine Color Yellow Urine Appearance Sl cloudy Urine pH 7.0 (5.0-8.0) Ur Specific [place] 1.020 (1.002-1.030) Urine Protein 30 mg/dl H (NEGATIVE) Urine Glucose (UA) Negative (NEGATIVE) Urine Ketones 15 mg/dl H (NEGATIVE) Urine Blood Moderate (NEGATIVE) Urine Nitrite Negative (NEGATIVE) Urine Bilirubin Small H (NEGATIVE) Urine Urobilinogen 2.0 H (0.20 - 1.00) E.U./dL Ur Leukocyte Esterase Moderate H (NEGATIVE) Urine RBC 7 - 10 (NONE SEEN) Urine WBC 16 - 20 (0-2/hpf) Ur Epithelial Cells None seen (FEW) Disposition Disposition: Admit Clinical Impression: Pyelonephritis Disposition: Still a Patient at [facility] Decision to Admit: Admit from ER Decision to Admit Date: 12/08/18 Decision to Admit Time: 14:49 Quality - Quality Measures Quality Measures: N/A - Blood Pressure Screening Does Patient Have Any of the Following: Active Dx of HTN Blood Pressure Classification: Hypertensive Reading Systolic Measurement: 139 Diastolic Measurement: 90 Screening for High Blood Pressure: Patient Exclusion, Hx of HTN [G9744]
[2018-12-08] MEDS ORDERED: ONDANSETRON 4 MG ODT TABLET PO PRN (15:38)
[2018-12-08] MEDS: ACETAMINOPHEN 500 MG TABLET PO PRN (16:01)
[2018-12-08] MEDS ORDERED: POTASSIUM CHL 20MEQ IN 1L NS 20 MEQ/1,000 ML BAG IV ONE (16:17)
[2018-12-09] MEDS: ACETAMINOPHEN 500 MG TABLET PO PRN ×2 (04:14→14:12)
[2018-12-09] MEDS: PANTOPRAZOLE SODIUM 40 MG TABLET PO SCH (06:12)
[2018-12-09 06:16] LABS: ABSOLUTE NEUTROPHIL COUNT 9.06; BASO % 0.2 % (0-6); EOS % 0.3 % (0-6); GRAN % 79.4 % (47-80); HEMATOCRIT 39.2 % (35.0-47.0); HEMOGLOBIN 12.6 gm/dl (11.6-16.0); LYMPH % 8.7 % (16-45); MEAN CELL VOLUME 93.3 fl (81-97); MEAN CORPUSCULAR HGB CONC 32.1 g/dl (32-36); MEAN PLATELET VOLUME 10.4 fl (7.4-10.4); MONO % 11.4 % (0-9); PLATELET COUNT 210 K/uL (130-400); RED CELL DISTRIBUTION WIDTH 13.5 % (11.5-14.5); WHITE BLOOD COUNT W/O DIFF 11.4 K/uL (4.2-12.2)
[2018-12-09 06:29] LABS: BLOOD UREA NITROGEN 11 mg/dL (8-23); CREATININE 0.6 mg/dL (0.5-0.9); EST GLOMERULAR FILTRATION RATE > 60 mL/min; GLUCOSE,RANDOM 108 mg/dL (74-109)
--- NOTE | 2018-12-09 09:50 | History & Physical ---
History of Present Illness - Date of Service Date of Service for History & Physical: 12/09/18 - History of Present Illness Admitting Diagnosis: UTI, mental status changes History of Present Illness: 83 yo female presents from [facility] for altered mental status with transferring facility suspicion for UTI. Upon arrival via EMS, EMS reported weakness and temp x4 days. PMH Dumont's Palsy (with surgical intervention), HTN, freq falls, anxiety, and OAB. Temp 99.3, HR 81, BP 139/90, RR 18, 92% RA pain 4/10 WBC 12.8, Hgb 3.8, Hct 43.4, plt 218 Na 137, K 3.3, BUN 11, Cr 0.8, GFR>60, Glucose 152, alk phos 136, bili 2.2 but remaining LFTs unremarkable UA yellow, cloudy, Protein 30, Ketones 15, Buli small, urobili 2, Leuk estrace Mod, RBC 7-10, WBC 16-30 with no epithelial cells Urine culture pending Pt started in Rocephin 1gm QD, and IVF NS 20mEq K @ 75 Admit UTI and altered mental status 12/09/18 Pt is sleepy, easily aroused but confused to time, place, and situation. Mostly alert to self but was not able report her age or year of . Right sided fa cial droop involving right eyebrow, eye, and mouth. She is handling secretions with no problem. No arm drift noted just generalized weakness and difficulty following verbal instructions. Pt is moving all extremities without difficulty but bruise to right upper arm is note. Urine odor noted and pt has been having issues with incontinence this admission. Dwayne, pt son called this AM. He is DPOA but there is documentation or detailed conversations about code status. Will make pt full code at this time. POC continue Rocephin 1GM q24, K supp x 4 doses. Repeat labs in the AM, awaiting culture results. Continue fall precautions and continue to assess mental status. CT head, CXR, and EKG ordered. Lovenox held until CT head is resulted. PCP Deana Travel Screening - Travel/Exposure Within Last 30 Days Have you traveled within the last 30 days?: No - Travel/Exposure Within Last Year Have you traveled outside the [place] in the last year?: No - Additonal Travel Details Have you been exposed to anyone with a communicable illness?: No Review of Systems Constitutional: Reports: As per HPI, Weakness. Denies: Chills, Fever, Malaise, Night sweats, Weight change Eyes: Reports: As per HPI. Denies: Eye discharge, Eye pain, Photophobia, Vision change ENT: Reports: As per HPI. Denies: Congestion, Dental pain, Ear pain, Epistaxis, Hearing loss, Throat pain Respiratory: Reports: As per HPI. Denies: Cough, Dyspnea, Hemoptysis, Stridor, Wheezes Cardiovascular: Reports: As per HPI. Denies: Arrhythmia, Chest pain, Dyspnea on exertion, Edema, Murmurs, Orthopnea, Palpitations, Paroxysmal nocturnal dyspnea, Rheumatic Fever, Syncope Endocrine: Reports: As per HPI. Denies: Fatigue, Heat or cold intolerance, Polydipsia, Polyuria Gastrointestinal: Reports: As per HPI. Denies: Abdominal pain, Constipation, Diarrhea, Hematemesis, Hematochezia, Melena, Nausea, Vomiting Genitourinary: Reports: As per HPI. Denies: Abnormal menses, Discharge, Dyspareunia, Dysuria, Frequency, Hematuria, Incontinence, Retention, Urgency Musculoskeletal: Reports: As per HPI. Denies: Arthralgia, Back pain, Gout, Joint swelling, Myalgia, Neck pain Skin: Reports: As per HPI, Bruising (s/p falling). Denies: Change in color, Change in hair/nails, Lesions, Pruritus, Rash Neurological: Reports: As per HPI, Confusion. Denies: Abnormal gait, Headache, Numbness, Paresthesias, Seizure, Tingling, Tremors, Vertigo, Weakness Psychiatric: Reports: As per HPI, Anxiety. Denies: Auditory hallucinations, Depression, Homicidal thoughts, Suicidal thoughts, Visual hallucinations Hematological/Lymphatic: Reports: As per HPI. Denies: Anemia, Blood Clots, Easy bleeding, Easy bruising, Swollen glands Past Medical History - SOCIAL HISTORY Smoking Status: Former smoker - RESPIRATORY Hx Respiratory Disorders: No - CARDIOVASCULAR Hx Cardio Disorders: Yes Hx Hypertension: Yes - NEURO Hx Neuro Disorders: Yes Hx Dizziness: Yes Comment:: Bels Palsy; Hydrocephalus; ataxic gait; - GI Hx GI Disorders: No - Hx Genitourinary Disorders: No - ENDOCRINE Hx Endocrine Disorders: No Hx Diabetes: No Hx Thyroid Disease: No - MUSCULOSKELETAL Hx Musculoskeletal Disorders: Yes Hx Arthritis: Yes (polyosteoarthritis; osteoporosis) Hx Back Injury: Yes Comment:: pathological fxs - PSYCH Hx Psych Problems: Yes Hx Anxiety: Yes - HEMATOLOGY/ONCOLOGY Hx Hematology/Oncology Disorders: No Family Medical History Any Significant Family History?: No Family Hx Comment (NOT TO BE USED IN PLACE OF ITEMS BELOW): unknown Hx Heart Disease: Grandparents Hx Stroke: Mother H&P Meds/Allergies - Allergies Allergies: Allergies Allergy/AdvReac Type Severity Reaction Status Date / Time Penicillins [PENICILLINS] Allergy Unknown PT UNSURE Verified 12/08/18 12:54 OF REACTION levofloxacin [LEVOFLOXACIN] AdvReac Unknown PAIN IN Verified 12/08/18 12:54 LEGS, UNABLE TO WALK - Home Medications Home Medications Medication Instructions Recorded Confirmed Last Taken Aspirin [Aspir-Low] 81 mg PO DAILY 12/08/18 12/08/18 12/08/18 Ibuprofen 800 mg PO ASDIR 12/08/18 12/08/18 12/08/18 Mirabegron [Myrbetriq] 50 mg PO DAILY 12/08/18 12/08/18 12/08/18 - Active Medications Active Medications: Current Medications Acetaminophen (Tylenol 500mg Tab) 1,000 mg PO Q6H PRN PRN Reason: PAIN - MILD(1-4)/FEVER Last Admin: 12/09/18 04:14 Dose: 1,000 mg Documented by: Amlodipine Besylate (Norvasc) 2.5 mg PO DAILY [facility] Aspirin (Ecotrin (Ec)) 81 mg PO DAILY [facility] Escitalopram Oxalate (Lexapro) 20 mg PO DAILY [facility] Hydrochlorothiazide (Hctz 12.5mg) 12.5 mg PO DAILY [facility] Ondansetron HCl (Zofran Odt) 4 mg PO Q8H PRN PRN Reason: NAUSEA Pantoprazole Sodium (Protonix) 40 mg PO DAILYAC [facility] Last Admin: 12/09/18 06:12 Dose: 40 mg Documented by: Patient Own Med: Mirabegron [ Myrbetriq] 50 Mg 50 each PO DAILY [facility] Potassium Chloride (Klor-Con) 20 meq PO BID [facility] Stop: 12/10/18 22:01 Valsartan (Diovan) 320 mg PO DAILY [facility] Physical Exam - Vital Signs Vital Signs: Vital Signs - Last 24 Hrs Temp Pulse Pulse Pulse Resp BP BP 12/09/18 09:00 97.9 F 81 16 12/09/18 05:00 98.4 F 76 14 132/62 12/09/18 01:00 98.1 F 79 14 124/55 12/08/18 22:16 98.4 F 127/63 12/08/18 21:35 98.4 F 83 16 127/63 12/08/18 21:00 83 16 12/08/18 15:38 99.4 F 92 H 12 12/08/18 15:32 12/08/18 15:31 87 18 142/88 12/08/18 14:58 98.4 F 12/08/18 13:53 83 17 132/50 12/08/18 12:48 99.3 F 81 18 139/90 BP Pulse Ox 12/09/18 09:00 121/54 91 L 12/09/18 05:00 96 12/09/18 01:00 95 12/08/18 22:16 12/08/18 21:35 96 12/08/18 21:00 12/08/18 15:38 172/76 96 12/08/18 15:32 95 12/08/18 15:31 92 L 12/08/18 14:58 12/08/18 13:53 92 L 12/08/18 12:48 92 L - General General Appearance: Alert, Cooperative, No acute distress Limitations: No limitations - Head Head exam: Normal inspection - Eye Eye exam: Normal appearance, PERRL, EOMI Pupils: Normal accommodation - ENT ENT exam: Mucous membranes moist, Normal external ear exam, Normal orophraynx, Other (right eye and eye brow droop) Ear exam: Normal external inspection. negative: External canal tenderness Nasal Exam: Normal inspection. negative: Discharge, Sinus tenderness Mouth exam: Tongue normal, Other (right facial droop) Teeth exam: Normal inspection. negative: Dental caries Throat exam: Normal inspection. negative: Tonsillar erythema, Tonsillar exudate - Neck Neck exam: Normal inspection, Full ROM. negative: Tenderness - Respiratory Respiratory exam: Normal lung sounds bilaterally. negative: Respiratory distress - Cardiovascular Cardiovascular Exam: Regular rate, Normal rhythm, Normal heart sounds Peripheral Pulses: 3+: Radial (R), Radial (L), Dorsalis Pedis (R), Dorsalis Pedis (L) - GI/Abdominal GI/Abdominal exam: Soft, Normal bowel sounds. negative: Tenderness - Rectal Rectal exam: Deferred - exam: Deferred - Extremities Extremities exam: Normal inspection, Full ROM, Normal capillary refill. negative: Tenderness - Back Back exam: Reports: Normal inspection, Vertebral tenderness. Denies: CVA tenderness (R), CVA tenderness (L), Muscle spasm, Rash noted, Tenderness - Neurological Neurological exam: Abnormal gait, Alert, Altered, CN II-XII intact. negative: Oriented X3 - Psychiatric Psychiatric exam: Normal affect, Normal mood - Skin Skin exam: Dry, Intact, Normal color, Warm Results - Labs Result Diagrams: 12/09/18 05:55 12/09/18 05:55 Labs Last 24 Hours: Laboratory Results - last 24 hr 12/08/18 12/08/18 12/08/18 12:50 13:00 13:00 WBC 12.8 H RBC 4.64 Hgb 13.8 Hct 43.4 MCV 93.5 MCH 29.7 MCHC 31.8 L RDW 13.6 Plt Count 218 MPV 10.1 Gran % Neutrophils % 81.0 H Band Neutrophils % 6.0 H Lymphocytes % Monocytes % Eosinophils % Not Reportable Basophils % Not Reportable Absolute Neutrophils 10.70 Lymphocytes 5.0 L Monocytes 7.0 Platelet Estimate Normal RBC Morphology Normal Eosinophil Count 1.0 Sodium 137 Potassium 3.3 L Chloride 96 L Carbon Dioxide 29.0 Anion Gap 12.0 BUN 11 Creatinine 0.8 Estimated GFR > 60 Random Glucose 152 H Calcium 9.6 Total Bilirubin 2.20 H AST 23 ALT 13 Alkaline Phosphatase 136 H Total Protein 6.9 Albumin 3.8 L Globulin 3.1 Albumin/Globulin Ratio 1.2 Urine Color Yellow Urine Appearance Sl cloudy Urine pH 7.0 Ur Specific Waldo 1.020 Urine Protein 30 mg/dl H Urine Glucose (UA) Negative Urine Ketones 15 mg/dl H Urine Blood Moderate Urine Nitrite Negative Urine Bilirubin Small H Urine Urobilinogen 2.0 H Ur Leukocyte Esterase Moderate H Urine RBC 7 - 10 Urine WBC 16 - 20 Ur Epithelial Cells None seen 12/09/18 12/09/18 05:55 05:55 WBC 11.4 RBC 4.20 Hgb 12.6 Hct 39.2 MCV 93.3 MCH 30.0 MCHC 32.1 RDW 13.5 Plt Count 210 MPV 10.4 Gran % 79.4 Neutrophils % Band Neutrophils % Lymphocytes % 8.7 L Monocytes % 11.4 H Eosinophils % 0.3 Basophils % 0.2 Absolute Neutrophils 9.06 Lymphocytes Monocytes Platelet Estimate RBC Morphology Eosinophil Count Sodium 137 Potassium 3.2 L Chloride 99 Carbon Dioxide 27.0 Anion Gap 11.0 BUN 11 Creatinine 0.6 Estimated GFR > 60 Random Glucose 108 Calcium 8.9 Total Bilirubin AST ALT Alkaline Phosphatase Total Protein Albumin Globulin Albumin/Globulin Ratio Urine Color Urine Appearance Urine pH Ur Specific Waldo Urine Protein Urine Glucose (UA) Urine Ketones Urine Blood Urine Nitrite Urine Bilirubin Urine Urobilinogen Ur Leukocyte Esterase Urine RBC Urine WBC Ur Epithelial Cells VTE H&P Assessment - Risk for VTE Risk for VTE: Yes Risk Level: High Risk Assessment Date: 12/09/18 Risk Assessment Time: 10:55 VTE Orders Placed or Will Be Placed: Yes Plan - Inpatient Certification Inpatient Certification: Admit to inpatient care: Based on my medical assessment, after consideration of patient's risk factors (age, co-morbidities and patient presenting symptoms and acuity), I expect that this patient will remain in the hospital greater than or equal to two midnights and that the services needed warrant inpatient care because: Patient Risk Factors: fall, sepsis, electrolyte imbalance Estimated length of stay: The patient may reasonably be expected to be discharged or transferred to a hospital within 96 hours after admission to [facility]. Services needed: electrolyte evaluation and treatment, repeat labs, IV antibiotics, alf care Post hospital care (if known): I certify that my determination is in accordance with my understanding of Medicare requirements for reasonable and necessary inpatient services. 12/09/18 10:55 - Detailed Diagnosis and Plan (1) UTI (urinary tract infection) Current Visit: No Status: Acute Qualifiers: Urinary tract infection type: site unspecified Hematuria presence: without hematuria Qualified Code(s): N39.0 - Urinary tract infection, site not specified Base Code: N39.0 - URINARY TRACT INFECTION, SITE NOT SPECIFIED Comment: 12/09/18 -UA positive for infection, culture pending -WBC 12.8->11.4 -continue Rocpehin 1gm q24hr, encourage fluids (2) Facial paralysis/Mobile palsy Current Visit: Yes Status: Acute 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 Comment: 12/09/18 -right sided Dumont's Palsy -ICAL contacted and report right sided facial droop for the past year -no unilateral weakness noted (3) Confusion Current Visit: Yes Status: Acute Base Code: R41.0 - DISORIENTATION, UNSPECIFIED Comment: 12/09/18 -CT head ordered, pending -EKG pending -positive UA but pt also has bruise to right arm and h/o freq falls -holding lovenox SQ until CT results (4) Elevated bilirubin Current Visit: Yes Status: Acute Base Code: R17 - UNSPECIFIED JAUNDICE Comment: 12/09/ elevated bili 2 but unremarkable LFTs -repeat tomorrow (5) Full code status Current Visit: No Status: Acute Base Code: Z78.9 - OTHER SPECIFIED HEALTH STATUS Comment: 12/09/18 patient remained full code during hospitalization
[2018-12-09] MEDS ORDERED: CEFTRIAXONE 1GM/50ML BAG IVPB SCH (10:00)
[2018-12-09] MEDS ORDERED: ESCITALOPRAM 10 MG TABLET PO SCH (10:00)
[2018-12-09] MEDS ORDERED: MIRABEGRON 50 MG PO SCH (10:00)
[2018-12-09] MEDS: HYDROCHLOROTHIAZIDE 12.5 MG CAPSULE PO SCH (10:16)
[2018-12-09] MEDS: VALSARTAN 80 MG TAB PO SCH (10:16)
[2018-12-09] MEDS: POTASSIUM CHLORIDE 10 MEQ TAB PO SCH ×2 (10:18→22:29)
[2018-12-09] MEDS: ASPIRIN 81 MG TABEC PO SCH (10:19)
[2018-12-09] MEDS: AMLODIPINE BESYLATE 5MG TAB PO SCH (10:20)
[2018-12-09] MEDS: ENOXAPARIN 40 MG/0.4 ML SYR SQ SCH (16:34)
[2018-12-09] MEDS ORDERED: POTASSIUM CHL 20MEQ IN 1L NS 20 MEQ/1,000 ML BAG IV ONE (16:42)
[2018-12-09] MEDS ORDERED: KETOROLAC 30 MG/ML VIAL IVP ONE (16:42)
[2018-12-09] MEDS: IBUPROFEN 400 MG TABLET PO PRN (18:26)
[2018-12-09] MEDS ORDERED: ZYVOX (LINEZOLID) 600MG/300 ML 600 MG/300 ML BAG IVPB SCH (21:15)
[2018-12-09] MEDS ORDERED: LINEZOLID 600 MG TABLET PO SCH (22:15)
[2018-12-10] MEDS ORDERED: ZINC OXIDE 28.35 GM TUBE TOP ONE (02:46)
[2018-12-10] MEDS ORDERED: ZINC OXIDE 28.35 GM TUBE TOP PRN (03:14)
[2018-12-10] MEDS: PANTOPRAZOLE SODIUM 40 MG TABLET PO SCH ×2 (05:41→06:03)
[2018-12-10 06:26] LABS: ABSOLUTE NEUTROPHIL COUNT 5.91; BASO % 0.5 % (0-6); EOS % 2.3 % (0-6); GRAN % 71.4 % (47-80); HEMATOCRIT 38.2 % (35.0-47.0); HEMOGLOBIN 12.1 gm/dl (11.6-16.0); LYMPH % 11.5 % (16-45); MEAN CELL VOLUME 94.1 fl (81-97); MEAN CORPUSCULAR HEMOGLOBIN 29.8 pg (27-33); MEAN CORPUSCULAR HGB CONC 31.7 g/dl (32-36); MEAN PLATELET VOLUME 10.2 fl (7.4-10.4); MONO % 14.3 % (0-9); PLATELET COUNT 208 K/uL (130-400); RED BLOOD COUNT 4.06 M/uL (3.80-5.40); RED CELL DISTRIBUTION WIDTH 13.3 % (11.5-14.5); WHITE BLOOD COUNT W/O DIFF 8.3 K/uL (4.2-12.2)
[2018-12-10 06:40] LABS: BLOOD UREA NITROGEN 11 mg/dL (8-23); CREATININE 0.6 mg/dL (0.5-0.9); EST GLOMERULAR FILTRATION RATE > 60 mL/min; GLUCOSE,RANDOM 103 mg/dL (74-109)
[2018-12-10 06:44] LABS: ALBUMIN 3.1 g/dL (4.0-5.0); BILIRUBIN,DIRECT 0.4 mg/dL (0-0.3); BILIRUBIN,TOTAL 1.2 mg/dL (0.2-1.0); TOTAL PROTEIN 5.7 g/dL (6.6-8.7)
[2018-12-10] MEDS: 0.9 % SODIUM CHLORIDE 1000ML 1,000 ML IV PRN ×2 (07:00→23:55)
--- NOTE | 2018-12-10 07:47 | CT SCAN REPORT ---
EXAM: CT SCAN OF THE HEAD HISTORY: PATIENT HAS A HISTORY OF FALL. TECHNIQUE: Serial axial CT scan of the head was performed at 2.5 mm intervals from the base of the skull to the apex without the use of intravenous contrast. Sagittal and coronal reconstructions are provided. Comparison: CT scan of the head dated 10/09/18 is provided. FINDINGS: Moderate generalized parenchymal volume loss is noted. There is no mass or mass effect. The mild to moderate ventriculomegaly appears similar to the prior CT scan. Extensive periventricular and subcortical white matter chronic small vessel ischemic changes are again identified. 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 The distal tip of the catheter is identified in the region of the anterior aspect of the left lateral horn. This finding is unchanged with respect to the prior CT scan. Bone windows demonstrate no CT evidence of a fracture or dislocation of the skull. Postoperative changes of the right mastoid air cells are again identified. The paranasal sinuses are unremarkable. No obvious discontinuities of the shunt catheter are identified. IMPRESSION: 1. STABLE CT APPEARANCE OF THE VENTRICULOMEGALY WITH RESPECT TO THE PRIOR EXAMINATION. 2. EXTENSIVE PERIVENTRICULAR AND SUBCORTICAL WHITE MATTER CHRONIC SMALL VESSEL ISCHEMIC CHANGES APPEAR SIMILAR TO THE PRIOR EXAMINATION. NO ACUTE INTRACRANIAL PROCESS IS NOTED. JOB NUMBER: [id number] [facility]
--- NOTE | 2018-12-10 07:52 | RADIOLOGY REPORT ---
EXAM: CHEST, TWO VIEWS HISTORY: COUGH. CONFUSION. TECHNIQUE: Two views of the chest are provided along with the comparison study dated 05/13/18. FINDINGS: The cardiomediastinal silhouette is within normal limits for size and contour. The erin appear unremarkable. A ventriculostomy shunt catheter is identified following the course along the right chest wall. Patchy infiltrate is identified within the right mid lung field. Asymmetric soft tissue densities are identified in the region of the left anterior chest wall which can be visualized on the prior CT scan of the chest dated 03/23/18. No pneumothorax is noted. Interstitial infiltrates are suspected. Blunting of the posterior costophrenic angles in the lateral projection suggest small pleural effusion. IMPRESSION: 1. FINDINGS SUSPICIOUS FOR INTERSTITIAL INFILTRATES. PATCHY SUPERIMPOSED FOCAL INFILTRATES ARE IDENTIFIED WITHIN THE RIGHT MID LUNG FIELD. 2. SOFT TISSUE DENSITIES ARE IDENTIFIED WITHIN THE REGION OF THE LEFT MID LUNG. THIS FINDING CORRESPONDS TO THE SOFT TISSUE MASS IDENTIFIED ON THE PRIOR CT SCAN OF THE CHEST. FOLLOW-UP CT SCAN OF THE CHEST CAN BE OBTAINED IF CLINICALLY INDICATED. JOB NUMBER: [id number] [facility]
[2018-12-10] MEDS: ESCITALOPRAM 10 MG TABLET PO SCH (09:34)
[2018-12-10] MEDS: VALSARTAN 80 MG TAB PO SCH (09:34)
[2018-12-10] MEDS: ENOXAPARIN 40 MG/0.4 ML SYR SQ SCH (09:34)
[2018-12-10] MEDS: AMLODIPINE BESYLATE 5MG TAB PO SCH (09:34)
[2018-12-10] MEDS: HYDROCHLOROTHIAZIDE 12.5 MG CAPSULE PO SCH (09:35)
[2018-12-10] MEDS: POTASSIUM CHLORIDE 10 MEQ TAB PO SCH ×2 (09:35→21:07)
[2018-12-10] MEDS: ASPIRIN 81 MG TABEC PO SCH (09:35)
[2018-12-10] MEDS: MIRABEGRON 50 MG PO SCH (09:36)
[2018-12-10] MEDS: ZYVOX (LINEZOLID) 600MG/300 ML 600 MG/300 ML BAG IVPB SCH ×2 (09:36→21:08)
[2018-12-10] MEDS ORDERED: ZYVOX (LINEZOLID) 600MG/300 ML 600 MG/300 ML BAG IVPB SCH (10:00)
[2018-12-10] MEDS ORDERED: PSYLLIUM HUSK/ASPARTAME 3.4 GM POWD.PACK PO SCH (10:00)
--- NOTE | 2018-12-10 10:13 | Physician Progress Note ---
Subjective - Date Date of Physician Progress Note: 12/10/18 Objective - Vital Signs Vital Signs: Vital Signs - Last 24 Hrs Temp Pulse Resp BP Pulse Ox 12/10/18 07:34 99.1 F 75 16 116/47 94 L 12/10/18 06:00 98.4 F 69 16 114/64 93 L 12/10/18 02:00 98.6 F 64 16 135/72 93 L 12/09/18 21:42 99.0 F 70 16 118/67 93 L 12/09/18 21:00 70 16 12/09/18 18:08 100 F H 87 16 115/55 92 L 12/09/18 16:25 100.0 F H 12/09/18 14:00 99.3 F 82 16 93 L 12/09/18 10:47 94 L 12/09/18 10:29 12 - General General Appearance: Alert, Cooperative, No acute distress Limitations: No limitations - Head Head exam: Normal inspection - Eye Eye exam: Normal appearance, PERRL, EOMI Pupils: Normal accommodation - ENT ENT exam: Mucous membranes moist, Normal external ear exam, Normal orophraynx, Other (right eye and eye brow droop) Ear exam: Normal external inspection. negative: External canal tenderness Nasal Exam: Normal inspection. negative: Discharge, Sinus tenderness Mouth exam: Tongue normal, Other (right facial droop) Teeth exam: Normal inspection. negative: Dental caries Throat exam: Normal inspection. negative: Tonsillar erythema, Tonsillar exudate - Neck Neck exam: Normal inspection, Full ROM. negative: Tenderness - Respiratory Respiratory exam: Normal lung sounds bilaterally. negative: Respiratory distress - Cardiovascular Cardiovascular Exam: Regular rate, Normal rhythm, Normal heart sounds Peripheral Pulses: 3+: Radial (R), Radial (L), Dorsalis Pedis (R), Dorsalis Ped is (L) - GI/Abdominal GI/Abdominal exam: Soft, Normal bowel sounds. negative: Tenderness - Rectal Rectal exam: Deferred - exam: Deferred - Extremities Extremities exam: Normal inspection, Full ROM, Normal capillary refill. negative: Tenderness - Back Back exam: Reports: Normal inspection, Vertebral tenderness. Denies: CVA tenderness (R), CVA tenderness (L), Muscle spasm, Rash noted, Tenderness - Neurological Neurological exam: Abnormal gait, Alert, Altered, CN II-XII intact. negative: Oriented X3 - Psychiatric Psychiatric exam: Normal affect, Normal mood - Skin Skin exam: Dry, Intact, Normal color, Warm Assessment and Plan - Assessment and Plan (1) CAP (community acquired pneumonia) Current Visit: Yes Status: Acute Base Code: J18.9 - PNEUMONIA, UNSPECIFIED ORGANISM Comment: 12/10/18 -CXR to investigate cough, PNA noted right mid lung -03/23/18 CT thoracic noted pul nodules, pt needs f/u CT to evaluate this after PNA resolves -Zyvox 600mg BID -BC x2 pending (2) UTI (urinary tract infection) Current Visit: No Status: Acute Qualifiers: Urinary tract infection type: site unspecified Hematuria presence: without hematuria Qualified Code(s): N39.0 - Urinary tract infection, site not specified Base Code: N39.0 - URINARY TRACT INFECTION, SITE NOT SPECIFIED Comment: 12/10/18 -WBC 12.8->11.4->8.3 -procalcitonins added r/t co-infection with PNA -procalcitonin 0.013-> 0.292-> 0.253 -changing ABX from Rocephin to Zyvox 600mg BID -BC x2 ordered and pending results -VSS, pt having nausea and refusing to eat but drinking boost shakes -return to IVF as pt is refusing to eat other than boost shakes 12/09/18 -UA positive for infection, culture pending -WBC 12.8->11.4 -continue Rocpehin 1gm q24hr, encourage fluids (3) Facial paralysis/Leggett palsy Current Visit: Yes Status: Acute 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 Comment: 12/10/18 -right sided Dumont's Palsy -ICAL contacted and report right sided facial droop for the past year -no unilateral weakness noted (4) Confusion Current Visit: Yes Status: Acute Base Code: R41.0 - DISORIENTATION, UNSPECIFIED Comment: 12/09/18 -CT head ordered, pending -EKG pending -positive UA but pt also has bruise to right arm and h/o freq falls -holding lovenox SQ until CT results (5) Elevated bilirubin Current Visit: Yes Status: Acute Base Code: R17 - UNSPECIFIED JAUNDICE Comment: 12/10/18 -bilirubin 2.2-> 1.2 -continue to monitor with repeat LFTs QOD 12/09/18 -elevated bili 2 but unremarkable LFTs -repeat tomorrow (6) Full code status Current Visit: No Status: Acute Base Code: Z78.9 - OTHER SPECIFIED HEALTH STATUS Comment: 12/10/18 patient remained full code during hospitalization Results - Labs Result Diagrams: 12/10/18 06:18 12/10/18 06:18 Labs Last 24 Hours: Laboratory Results - last 24 hr 12/08/18 12/09/18 12/10/18 13:00 05:55 03:00 WBC RBC Hgb Hct MCV MCH MCHC RDW Plt Count MPV Gran % Lymphocytes % Monocytes % Eosinophils % Basophils % Absolute Neutrophils Sodium Potassium Chloride Carbon Dioxide Anion Gap BUN Creatinine Estimated GFR Random Glucose Calcium Total Bilirubin Direct Bilirubin AST ALT Alkaline Phosphatase Total Protein Albumin Procalcitonin 0.130 0.292 C. difficile Ag & Toxin Not detected 12/10/18 12/10/18 12/10/18 06:18 06:18 06:18 WBC 8.3 RBC 4.06 Hgb 12.1 Hct 38.2 MCV 94.1 MCH 29.8 MCHC 31.7 L RDW 13.3 Plt Count 208 MPV 10.2 Gran % 71.4 Lymphocytes % 11.5 L Monocytes % 14.3 H Eosinophils % 2.3 Basophils % 0.5 Absolute Neutrophils 5.91 Sodium 139 Potassium 3.7 Chloride 101 Carbon Dioxide 26.0 Anion Gap 12.0 BUN 11 Creatinine 0.6 Estimated GFR > 60 Random Glucose 103 Calcium 8.7 L Total Bilirubin 1.20 H Direct Bilirubin 0.4 H AST 18 ALT 13 Alkaline Phosphatase 137 H Total Protein 5.7 L Albumin 3.1 L Procalcitonin C. difficile Ag & Toxin 12/10/18 06:18 WBC RBC Hgb Hct MCV MCH MCHC RDW Plt Count MPV Gran % Lymphocytes % Monocytes % Eosinophils % Basophils % Absolute Neutrophils Sodium Potassium Chloride Carbon Dioxide Anion Gap BUN Creatinine Estimated GFR Random Glucose Calcium Total Bilirubin Direct Bilirubin AST ALT Alkaline Phosphatase Total Protein Albumin Procalcitonin 0.253 C. difficile Ag & Toxin - Imaging and Cardiology Chest x-ray Status: Pending (audio clip review) DVT/PE Assessment - Risk for VTE Risk for VTE: No Risk Level: High Risk Assessment Date: 12/09/18 Risk Assessment Time: 10:55 VTE Orders Placed or Will Be Placed: Yes - Active Medicaitons Current Medications: Current Medications Acetaminophen (Tylenol 500mg Tab) 1,000 mg PO Q6H PRN PRN Reason: PAIN - MILD(1-4)/FEVER Last Admin: 12/09/18 14:12 Dose: 1,000 mg Documented by: Amlodipine Besylate (Norvasc) 2.5 mg PO DAILY [facility] Last Admin: 12/10/18 09:34 Dose: 2.5 mg Documented by: Aspirin (Ecotrin (Ec)) 81 mg PO DAILY [facility] Last Admin: 12/10/18 09:35 Dose: 81 mg Documented by: Enoxaparin Sodium (Lovenox) 40 mg SQ DAILY [facility] Last Admin: 12/10/18 09:34 Dose: 40 mg Documented by: Escitalopram Oxalate (Lexapro) 10 mg PO DAILY [facility] Last Admin: 12/10/18 09:34 Dose: 10 mg Documented by: Hydrochlorothiazide (Hctz 12.5mg) 12.5 mg PO DAILY [facility] Last Admin: 12/10/18 09:35 Dose: 12.5 mg Documented by: Linezolid (Zyvox) 600 mg in 300 mls @ 300 mls/hr IVPB Q12H [facility] Last Admin: 12/10/18 09:36 Dose: 300 mls/hr Documented by: Ibuprofen (Motrin 400mg) 600 mg PO Q8H PRN PRN Reason: PAIN - MILD (1-4) Last Admin: 12/09/18 18:26 Dose: 600 mg Documented by: Ondansetron HCl (Zofran Odt) 4 mg PO Q8H PRN PRN Reason: NAUSEA [facility] Last Admin: 12/10/18 06:03 Dose: Not Given Documented by: Patient Own Med: Mirabegron [ Myrbetriq] 50 Mg 1 each PO DAILY [facility] Last Admin: 12/10/18 09:36 Dose: Not Given Documented by: Potassium Chloride (Klor-Con) 20 meq PO BID [facility] Stop: 12/10/18 22:01 Last Admin: 12/10/18 09:35 Dose: 20 meq Documented by: Valsartan (Diovan) 320 mg PO DAILY [facility] Last Admin: 12/10/18 09:34 Dose: 320 mg Documented by: Zinc Oxide (Desitin) 10 gm TOP BID PRN PRN Reason: RASH AMI Plan - Labs Result Diagrams: 12/10/18 06:18 12/10/18 06:18
[2018-12-10] MEDS ORDERED: LOPERAMIDE 2 MG CAPSULE PO ONE (11:37)
--- NOTE | 2018-12-10 14:36 | Rehab Evaluation ---
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 [facility] [place] T&A PMH - Respiratory Hx Respiratory Disorders No PMH - Cardiovascular Hx Cardiovascular Disorders Yes Hx Hypertension Yes PMH - Neuro Hx Neurological Disorders Yes Hx Dizziness Yes Comment: Bels Palsy; Hydrocephalus; ataxic gait; PMH - GI Hx Gastrointestinal Disorders No PMH - Hx Genitourinary Disorders No Patient No PMH - Endocrine Hx Endocrine Disorders No Hx Diabetes No Hx Thyroid Disease No PMH - Musculoskeletal Hx Musculoskeletal Disorders Yes Hx Arthritis Yes: polyosteoarthritis; osteoporosis Hx Back Injury Yes Comment: pathological fxs PMH - Psych Hx Psychiatric Problems Yes Hx Anxiety Yes PMH - Hematology/Oncology Hx Hematology/Oncology No Disorders Premorbid Status: Detail (Per her report prior to admission the patient was ambulatory with a 4 wheeled walker. The patient states she had assistance with dressing and showering.) Social History: Detail (The patient is a resident of [facility] . Her bathroom is handicapped acessible with a walk in shower, seat and grab bars.) Precautions: [place], Fall - Time With Patient Total Time Spent With Patient (Min): 30 Treatment Procedures: Detail (Initial Evaluation,low complexity.) Subjective Information - Subjective Information Per Patient (The patient had no complaints of pain. The patient did state she felt weak.) Objective Data - Mental Status Patient Orientation: Person, Place (The patient knew her birthdate, age, current month but not year. The patient was able to follow simple commands.) - Visual Perception Appears within normal limits for therapeutic activities - ROM Not within normal limits (The patient's R knee AROM was limited in knee extension aprox. -15 degrees, all other AROM was WNL. Refer to OT note for UE AROM.) - Strength/Tone Not within normal limits ( Bilaterally LE strength: hip flexors 4-/5, hip adductors 4/5, hip adductors, L knee extensors 3+/5, R 4-/5, knee flexors bilaterally 4-/5, ankle musculature 4/5. Refer to OT for UE strength grades.) - Bed Mobility Independent (The patient was independent with supine to and from sit. The patient required minimal PA of 1 with scooting up in bed.) - Transfers Independent (The patient was able to acheive sit to and from stand with supervision for safety only.) - Balance Balance Sitting: Good Balance Standing: Poor (The patient was unable to stand without support of walker. The patient exhibited decreased posterior balance reaction in standing. The patient's balance using the Tinetti Assessment Tool was 16/28 which is in the high risk for falling category.) - Gait Detail (The patient ambulated with 2 wheeled walker a distance of 20 feet x 1 with CG for safety.) Therapy Assessment - Therapy Assessment Detail (The patient exhibited decreased LE strength, CG with ambulation and decreased standing balance. Feel the patient would benefit from PT to return to previous functional level ie: ambulatory household distances (to dining room at [facility]) and to improve balance and LE strength. The patient would benefit from Home PT upon discharge from [facility].) Problem List - Problem List Physical Therapy Problem List: Detail (1) Decreased LE strength 2) Decreased standing balance 3) Decreased ability to complete prolonged physical activity 4) CG with ambulation) Goals - Goals Physical Therapy Goals: 1) The patient will ambulate distances of 50 feet plus independently with appropriate assistive device. 2) Increase LE strength 1/3 muscle grade to increase stability of gait. 3) The patient will tolerate 30 minutes of physical activity with one to two rest periods. 4) The patient will be independent with all bed mobility including scooting up in bed. 5) Improve the patient's Balance using the Tinetti Assessment Tool by 4 points (clinical significant score) Plan - Plan Physical Therapy Plan: PT 1 time a day M-F for gait training, LE strengthening and balance exercises.
[2018-12-10] MEDS: ACETAMINOPHEN 500 MG TABLET PO PRN (21:07)
[2018-12-10] MEDS: IBUPROFEN 400 MG TABLET PO PRN (23:50)
[2018-12-11] MEDS: PANTOPRAZOLE SODIUM 40 MG TABLET PO SCH (06:13)
[2018-12-11 07:13] LABS: HEMATOCRIT 38.3 % (35.0-47.0); HEMOGLOBIN 12.2 gm/dl (11.6-16.0); MEAN CELL VOLUME 95.5 fl (81-97); MEAN CORPUSCULAR HEMOGLOBIN 30.4 pg (27-33); MEAN CORPUSCULAR HGB CONC 31.9 g/dl (32-36); MEAN PLATELET VOLUME 10.6 fl (7.4-10.4); PLATELET COUNT 263 K/uL (130-400); RED BLOOD COUNT 4.01 M/uL (3.80-5.40); RED CELL DISTRIBUTION WIDTH 13.3 % (11.5-14.5); WHITE BLOOD COUNT W/O DIFF 7.9 K/uL (4.2-12.2)
[2018-12-11 07:31] LABS: BLOOD UREA NITROGEN 10 mg/dL (8-23); CREATININE 0.8 mg/dL (0.5-0.9); EST GLOMERULAR FILTRATION RATE > 60 mL/min; GLUCOSE,RANDOM 101 mg/dL (74-109)
[2018-12-11] MEDS: ZYVOX (LINEZOLID) 600MG/300 ML 600 MG/300 ML BAG IVPB SCH ×2 (10:52→21:33)
[2018-12-11] MEDS: MIRABEGRON 50 MG PO SCH (10:52)
[2018-12-11] MEDS: AMLODIPINE BESYLATE 5MG TAB PO SCH (10:54)
[2018-12-11] MEDS: ESCITALOPRAM 10 MG TABLET PO SCH (10:55)
[2018-12-11] MEDS: VALSARTAN 80 MG TAB PO SCH (10:55)
[2018-12-11] MEDS: HYDROCHLOROTHIAZIDE 12.5 MG CAPSULE PO SCH (10:56)
[2018-12-11] MEDS: ASPIRIN 81 MG TABEC PO SCH (10:56)
[2018-12-11] MEDS: ENOXAPARIN 40 MG/0.4 ML SYR SQ SCH (10:56)
--- NOTE | 2018-12-11 11:34 | Physician Progress Note ---
Subjective - Date Date of Physician Progress Note: 12/11/18 - Subjective Subjective Comment: 12/11/18: Pt. continue to work with PT/OT, weakness improving. Case management did sp eak to family regarding poss need for rehab placement. Will continue IV abx and IVF, continue to encourage PO intake. Loose stools persist. Objective - Vital Signs Vital Signs: Vital Signs - Last 24 Hrs Temp Pulse Resp BP Pulse Ox 12/11/18 08:25 16 12/11/18 07:30 98.5 F 64 16 104/49 90 L 12/11/18 03:55 98.6 F 70 16 111/45 93 L 12/10/18 23:46 100.5 F H 12/10/18 22:24 101.0 F H 12/10/18 21:00 85 16 12/10/18 20:00 99.2 F 85 16 111/60 93 L 12/10/18 16:00 99.5 F 82 16 153/53 92 L - General General Appearance: Alert, Cooperative, No acute distress Limitations: No limitations - Head Head exam: Normal inspection - Eye Eye exam: Normal appearance, PERRL, EOMI Pupils: Normal accommodation - ENT ENT exam: Mucous membranes moist, Normal external ear exam, Normal orophraynx, Other (right eye and eye brow droop) Ear exam: Normal external inspection. negative: External canal tenderness Nasal Exam: Normal inspection. negative: Discharge, Sinus tenderness Mouth exam: Tongue normal, Other (right facial droop) Teeth exam: Normal inspection. negative: Dental caries Throat exam: Normal inspection. negative: Tonsillar erythema, Tonsillar exudate - Neck Neck exam: Normal inspection, Full ROM. negative: Tenderness - Respiratory Respiratory exam: Normal lung sounds bilaterally. negative: Respiratory distress - Cardiovascular Cardiovascular Exam: Regular rate, Normal rhythm, Normal heart sounds Peripheral Pulses: 3+: Radial (R), Radial (L), Dorsalis Pedis (R), Dorsalis Pedis (L) - GI/Abdominal GI/Abdominal exam: Soft, Normal bowel sounds. negative: Tenderness - Rectal Rectal exam: Deferred - exam: Deferred - Extremities Extremities exam: Normal inspection, Full ROM, Normal capillary refill. negative: Tenderness - Back Back exam: Reports: Normal inspection, Vertebral tenderness. Denies: CVA tenderness (R), CVA tenderness (L), Muscle spasm, Rash noted, Tenderness - Neurological Neurological exam: Abnormal gait, Alert, Altered, CN II-XII intact. negative: Oriented X3 - Psychiatric Psychiatric exam: Normal affect, Normal mood - Skin Skin exam: Dry, Intact, Normal color, Warm Assessment and Plan - Assessment and Plan (1) CAP (community acquired pneumonia) Current Visit: Yes Status: Acute Base Code: J18.9 - PNEUMONIA, UNSPECIFIED ORGANISM Comment: 12/11/18 -CXR to investigate cough, PNA noted right mid lung -03/23/18 CT thoracic noted pul nodules, pt needs f/u CT to evaluate this after PNA resolves -Zyvox 600mg BID -BC x2 pending, no growth to date on preliminary (2) Confusion Current Visit: Yes Status: Acute Base Code: R41.0 - DISORIENTATION, UNSPECIFIED Comment: 12/11/18 -A&O x2 today -CT head neg for acute change -positive UA but pt also has bruise to right arm and h/o freq falls (3) Elevated bilirubin Current Visit: Yes Status: Acute Base Code: R17 - UNSPECIFIED JAUNDICE Comment: 12/11/18 -bilirubin 2.2-> 1.2 -continue to monitor with repeat LFTs QOD (4) UTI (urinary tract infection) Current Visit: No Status: Acute Qualifiers: Urinary tract infection type: site unspecified Hematuria presence: without hematuria Qualified Code(s): N39.0 - Urinary tract infection, site not specified Base Code: N39.0 - URINARY TRACT INFECTION, SITE NOT SPECIFIED Comment: 12/11/18 -WBC 12.8->11.4->8.3, 7.9 this am -procalcitonins demonstrate improvement with change to Zyvox 600mg BID -VSS -continue IVF until PO intake improves (5) Facial paralysis/[place] palsy Current Visit: Yes Status: Acute 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 Comment: 12/11/18 -right sided Dumont's Palsy -ICAL contacted and report right sided facial droop for the past year -no unilateral weakness noted (6) Full code status Current Visit: No Status: Acute Base Code: Z78.9 - OTHER SPECIFIED HEALTH STATUS Comment: 12/11/18 -patient remains full code during hospitalization Results - Labs Result Diagrams: 12/11/18 06:39 12/11/18 06:39 Labs Last 24 Hours: Laboratory Results - last 24 hr 12/11/18 12/11/18 12/11/18 06:39 06:39 06:39 WBC 7.9 RBC 4.01 Hgb 12.2 Hct 38.3 MCV 95.5 MCH 30.4 MCHC 31.9 L RDW 13.3 Plt Count 263 MPV 10.6 H Neutrophils % 69.0 Eosinophils % Not Reportable Basophils % Not Reportable Absolute Neutrophils Not Reportable Lymphocytes 13.0 L Monocytes 15.0 H Eosinophil Count 3.0 Sodium 136 Potassium 3.7 Chloride 100 Carbon Dioxide 27.0 Anion Gap 9.0 BUN 10 Creatinine 0.8 Estimated GFR > 60 Random Glucose 101 Calcium 8.8 Procalcitonin 0.255 DVT/PE Assessment - Risk for VTE Risk for VTE: No Risk Level: High Risk Assessment Date: 12/09/18 Risk Assessment Time: 10:55 VTE Orders Placed or Will Be Placed: Yes - Active Medicaitons Current Medications: Current Medications Acetaminophen (Tylenol 500mg Tab) 1,000 mg PO Q6H PRN PRN Reason: PAIN - MILD(1-4)/FEVER Last Admin: 12/10/18 21:07 Dose: 1,000 mg Documented by: Amlodipine Besylate (Norvasc) 2.5 mg PO DAILY [facility] Last Admin: 12/11/18 10:54 Dose: 2.5 mg Documented by: Aspirin (Ecotrin (Ec)) 81 mg PO DAILY [facility] Last Admin: 12/11/18 10:56 Dose: 81 mg Documented by: Enoxaparin Sodium (Lovenox) 40 mg SQ DAILY [facility] Last Admin: 12/11/18 10:56 Dose: 40 mg Documented by: Escitalopram Oxalate (Lexapro) 10 mg PO DAILY [facility] Last Admin: 12/11/18 10:55 Dose: 10 mg Documented by: Hydrochlorothiazide (Hctz 12.5mg) 12.5 mg PO DAILY [facility] Last Admin: 12/11/18 10:56 Dose: Not Given Documented by: Linezolid (Zyvox) 600 mg in 300 mls @ 300 mls/hr IVPB Q12H [facility] Last Admin: 12/11/18 10:52 Dose: 300 mls/hr Documented by: Sodium Chloride () 1,000 mls @ 75 mls/hr IV .[id number] PRN PRN Reason: LARGE VOLUME IV Last Admin: 12/10/18 23:55 Dose: 75 mls/hr Documented by: Ibuprofen (Motrin 400mg) 600 mg PO Q8H PRN PRN Reason: PAIN - MILD (1-4) Last Admin: 12/10/18 23:50 Dose: 600 mg Documented by: Ondansetron HCl (Zofran Odt) 4 mg PO Q8H PRN PRN Reason: NAUSEA Last Admin: 12/10/18 11:42 Dose: 4 mg Documented by: Pantoprazole [facility]) [facility] Last Admin: 12/11/18 06:13 Dose: 40 mg Documented by: Patient Own Med: Mirabegron [ Myrbetriq] 50 Mg 1 each PO DAILY [facility] Last Admin: 12/11/18 10:52 Dose: Not Given Documented by: Valsartan (Diovan) 320 mg PO DAILY [facility] Last Admin: 12/11/18 10:55 Dose: 320 mg Documented by: Zinc Oxide (Desitin) 10 gm TOP BID PRN PRN Reason: RASH AMI Plan - Labs Result Diagrams: 12/11/18 06:39 12/11/18 06:39
--- NOTE | 2018-12-11 13:12 | Rehab Evaluation ---
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 [facility] [place] T&A PMH - Respiratory Hx Respiratory Disorders No PMH - Cardiovascular Hx Cardiovascular Disorders Yes Hx Hypertension Yes PMH - Neuro Hx Neurological Disorders Yes Hx Dizziness Yes Comment: Bels Palsy; Hydrocephalus; ataxic gait; PMH - GI Hx Gastrointestinal Disorders No PMH - Hx Genitourinary Disorders No Patient No PMH - Endocrine Hx Endocrine Disorders No Hx Diabetes No Hx Thyroid Disease No PMH - Musculoskeletal Hx Musculoskeletal Disorders Yes Hx Arthritis Yes: polyosteoarthritis; osteoporosis Hx Back Injury Yes Comment: pathological fxs PMH - Psych Hx Psychiatric Problems Yes Hx Anxiety Yes PMH - Hematology/Oncology Hx Hematology/Oncology No Disorders Premorbid Status: Detail (Per Pt report, prior to admit the patient was ambulatory with a 4 wheeled walker, was independent with ADLs, and had a friend take her to the grocery store and stayed with her while she showered. Unsure of actual prior level of physical or cognitive function, as Pt lives at [facility] per nursing report and demos cognitive impairment.) Social History: Detail (The patient is a resident of [facility] . Her bathroom is handicapped acessible with a walk in shower, seat and grab bars.) Precautions: [place], Fall - Time With Patient Total Time Spent With Patient (Min): 35 (1 eval low, 1 ADL) Treatment Procedures: Detail (OT eval: low complexity) Subjective Information - Subjective Information Per Patient (Ok to see per LAYC Watkins. Pt agreeable to OT eval and Tx. Sitting in recliner upon arrival.) Objective Data - Pain Pain Present: No - Mental Status Patient Orientation: Person, Place, Time (knows and current month, unsure of current year) - Visual Perception Appears within normal limits for therapeutic activities, Other (R eye ptosis noted) - ROM Not within normal limits (L shld ~90*, R shld ~120*, otherwise WNL) - Strength/Tone Not within normal limits (B shld 3/5 MMT, B elbow flex/ext. 3+/5 MMT, decreased import clerk strength noted) - Coordination Appears within normal limits for therapeutic activities - Transfers Needs Assist (CGA sit to/from stand from recliner and from low toilet with increased effort and use of grab bar. Verbal instruction for safe FWW use/placement during standing self-cares and TFs.) - Balance Balance Sitting: Fair Balance Standing: Fair (Fair-), Poor - Sensation Intact - Gait Detail (CGA functional mobility within bedroom with FWW) - ADL's/IADL's Detail (LB dress: supervision grossly - Pt doffs brief, requires verbal cueing to thread L leg through brief as she stands to pull up brief with only one leg threaded. UB dress: setup assist. Toileting: supervision - verbal instruction to wipe and to put toilet paper in toilet each time as she asks "where does this go?" Grooming: supervision - verbal instruction to dry hands and to turn water off. Fxl TFs: supervision with verbal instruction for safe FWW use, topographical orientation, and steps of tasks.) Therapy Assessment - Therapy Assessment Detail (Pt at supervision level grossly, currently requiring verbal instruction for all tasks d/t cognitive impairment. Also demos decreased UB strength needed for assist during sit to/from stands. Pt would benefit from further OT to increase safety with walker use, increase functional endurance overall, and increase UB strength for functional TFs and UB ADLs.) Patient Education - Patient Education Teaching Topic: Exercise/Activity, Other (Role of OT, plan of care, safe FWW u se) Response: Return Demonstration, Reinforcement Needed, Verbalize Understanding Teaching Method: Discussion, Demonstration Teaching Recipient: Patient Barriers To Learning: Cognitive/Verbal Problem List - Problem List Physical Therapy Problem List: Detail (1) Decreased LE strength 2) Decreased standing balance 3) Decreased ability to complete prolonged physical activity 4) CG with ambulation) Occupational Therapy Problem List: Detail (1. Decreased independence with total body dressing. 2. Decreased functional endurance needed for safe and independent self-cares. 3. Decreased UB strength for self-cares and support during functional TFs 4. Unsafe FWW use) Goals - Goals Physical Therapy Goals: 1) The patient will ambulate distances of 50 feet plus independently with appropriate assistive device. 2) Increase LE strength 1/3 muscle grade to increase stability of gait. 3) The patient will tolerate 30 minutes of physical activity with one to two rest periods. 4) The patient will be independent with all bed mobility including scooting up in bed. 5) Improve the patient's Balance using the Tinetti Assessment Tool by 4 points (clinical significant score) Occupational Therapy Goals: 1. Pt will complete total body dressing at PLOF level (supervision vs. indep - determine baseline). 2. Pt will tolerate 20 min OT Tx without s/s fatigue. 3. Pt will increase UB strength 4/5 grossly in prep for self-cares and functional TFs. 4. Pt will demo safe use of FWW during functional TFs and standing self-cares. Prognosis - Prognosis Good Plan - Plan Physical Therapy Plan: PT 1 time a day M-F for gait training, LE strengthening and balance exercises. Occupational Therapy Plan: Pt will benefit from skilled IP OT 1-2 sessions pending progress to ensure safe return to prior living environment at [facility].
--- NOTE | 2018-12-11 14:05 | Physical Therapy Tx Note ---
Physical Therapy Tx Note - Treatment Note Tolerated: Good Total Time Spent With Patient: 20 Physical Therapy Tx Note: Detail (Patient was up in chair when PT arrived. The patient had no complaints but was ready to return to bed due to fatigue. The patient was independent with sit to and from stand. The patient ambulated with front wheeled walker with supervision for safety only and to handle IV a distance of 50 feet x 1. The patient was independent with sit to supine transfer and required moderate PA of 1 to scoot up in bed with patient pushing with LE's. The patient followed simple commands well this pm.) Physical Therapy Problem List: Detail (1) Decreased LE strength 2) Decreased standing balance 3) Decreased ability to complete prolonged physical activity 4) CG with ambulation) Physical Therapy Goals: 1) The patient will ambulate distances of 50 feet plus independently with appropriate assistive device. 2) Increase LE strength 1/3 muscle grade to increase stability of gait. 3) The patient will tolerate 30 minutes of physical activity with one to two rest periods. 4) The patient will be independent with all bed mobility including scooting up in bed. 5) Improve the patient's Balance using the Tinetti Assessment Tool by 4 points (clinical significant score) Physical Therapy Plan: PT 1 time a day M-F for gait training, LE strengthening and balance exercises.
[2018-12-11] MEDS: 0.9 % SODIUM CHLORIDE 1000ML 1,000 ML IV PRN (15:23)
[2018-12-12] MEDS: 0.9 % SODIUM CHLORIDE 1000ML 1,000 ML IV PRN (04:34)
[2018-12-12 06:23] LABS: ABSOLUTE NEUTROPHIL COUNT 4.45; HEMATOCRIT 36.5 % (35.0-47.0); HEMOGLOBIN 11.2 gm/dl (11.6-16.0); MEAN CELL VOLUME 95.8 fl (81-97); MEAN CORPUSCULAR HGB CONC 30.7 g/dl (32-36); MEAN PLATELET VOLUME 9.7 fl (7.4-10.4); PLATELET COUNT 250 K/uL (130-400); RED BLOOD COUNT 3.81 M/uL (3.80-5.40); RED CELL DISTRIBUTION WIDTH 13.3 % (11.5-14.5); WHITE BLOOD COUNT W/O DIFF 7.3 K/uL (4.2-12.2)
[2018-12-12 06:26] LABS: MEAN CORPUSCULAR HEMOGLOBIN 29.3 pg (27-33)
[2018-12-12] MEDS: PANTOPRAZOLE SODIUM 40 MG TABLET PO SCH (06:28)
[2018-12-12 06:35] LABS: PLATELET ESTIMATE NORMAL (NORMAL)
[2018-12-12 06:45] LABS: ALB/GLOB RATIO 1.1 (1.1-1.8); ALBUMIN 3.1 g/dL (4.0-5.0); ALKALINE PHOSPHATASE 205 U/L (35-104); ALT/SGPT 24 U/L (<33); AST/SGOT 32 U/L (10.0-35.0); BILIRUBIN,DIRECT 0.3 mg/dL (0-0.3); BLOOD UREA NITROGEN 8 mg/dL (8-23); CREATININE 0.6 mg/dL (0.5-0.9); EST GLOMERULAR FILTRATION RATE > 60 mL/min; GLUCOSE,RANDOM 103 mg/dL (74-109); TOTAL PROTEIN 5.8 g/dL (6.6-8.7)
[2018-12-12] MEDS ORDERED: LINEZOLID 600 MG TABLET PO SCH (10:00)
[2018-12-12] MEDS: VALSARTAN 80 MG TAB PO SCH (10:45)
[2018-12-12] MEDS: AMLODIPINE BESYLATE 5MG TAB PO SCH (10:45)
[2018-12-12] MEDS: ASPIRIN 81 MG TABEC PO SCH (10:46)
[2018-12-12] MEDS: HYDROCHLOROTHIAZIDE 12.5 MG CAPSULE PO SCH (10:46)
[2018-12-12] MEDS: ESCITALOPRAM 10 MG TABLET PO SCH (10:46)
[2018-12-12] MEDS: MIRABEGRON 50 MG PO SCH (10:48)
[2018-12-12] MEDS: ENOXAPARIN 40 MG/0.4 ML SYR SQ SCH (10:48)
--- NOTE | 2018-12-12 10:49 | Discharge Summary ---
Providers Discharge Summary Date: 12/12/18 Date of admission: 12/08/18 15:27 Expected Date of Discharge: 12/12/18 Attending physician: YUNI MEDEIROS Primary care physician: YAMILA SOLIS M.D. Consults: Consult Orders 12/08/18 16:12 Consult - Case Management NOW Comment: Reason For Exam: Asst Living Physical Exam - Vital Signs Vital Signs: Vital Signs - Last 24 Hrs Temp Pulse Pulse Resp BP BP Pulse Ox 12/12/18 07:51 98.1 F 79 16 125/55 91 L 12/12/18 04:37 99.6 F 78 16 148/58 96 12/12/18 00:12 99.7 F H 12/11/18 21:00 16 12/11/18 20:32 94 L 12/11/18 20:30 99.1 F 94 H 16 90 L 12/11/18 15:00 97.5 F L 80 18 140/56 92 L 12/11/18 11:00 98.1 F 65 16 135/50 95 - General General Appearance: Alert, Cooperative, No acute distress Limitations: No limitations - Head Head exam: Normal inspection - Eye Eye exam: Normal appearance, PERRL, EOMI Pupils: Normal accommodation - ENT ENT exam: Mucous membranes moist, Normal external ear exam, Normal orophraynx, Other (right eye and eye brow droop) Ear exam: Normal external inspection. negative: External canal tenderness Nasal Exam: Normal inspection. negative: Discharge, Sinus tenderness Mouth exam: Tongue normal, Other (right facial droop) Teeth exam: Normal inspection. negative: Dental caries Throat exam: Normal inspection. negative: Tonsillar erythema, Tonsillar exudate - Neck Neck exam: Normal inspection, Full ROM. negative: Tenderness - Respiratory Respiratory exam: Normal lung sounds bilaterally. negative: Respiratory distress - Cardiovascular Cardiovascular Exam: Regular rate, Normal rhythm, Normal heart sounds Peripheral Pulses: 3+: Radial (R), Radial (L), Dorsalis Pedis (R), Dorsalis Pedis (L) - GI/Abdominal GI/Abdominal exam: Soft, Normal bowel sounds. negative: Tenderness - Rectal Rectal exam: Deferred - exam: Deferred - Extremities Extremities exam: Normal inspection, Full ROM, Normal capillary refill. negative: Tenderness - Back Back exam: Reports: Normal inspection, Vertebral tenderness. Denies: CVA tenderness (R), CVA tenderness (L), Muscle spasm, Rash noted, Tenderness - Neurological Neurological exam: Abnormal gait, Alert, Altered, CN II-XII intact. negative: Oriented X3 - Psychiatric Psychiatric exam: Normal affect, Normal mood - Skin Skin exam: Dry, Intact, Normal color, Warm Hospitalization - Hospitalization Admission Diagnosis: UTI, mental status changes - Problem List/Discharge Diagnosis (1) CAP (community acquired pneumonia) Current Visit: Yes Status: Acute Base Code: J18.9 - PNEUMONIA, UNSPECIFIED ORGANISM Comment: 12/12/18 -CXR to investigate cough, PNA noted right mid lung -03/23/18 CT thoracic noted pul nodules, pt needs f/u CT to evaluate this after PNA resolves -Zyvox 600mg BID, changed to PO -BC x2 pending, no growth to date on preliminary (2) Confusion Current Visit: Yes Status: Acute Base Code: R41.0 - DISORIENTATION, UNSPECIFIED Comment: 12/12/18 -Baseline per pt's son (3) Elevated bilirubin Current Visit: Yes Status: Acute Base Code: R17 - UNSPECIFIED JAUNDICE Comment: 12/11/18 -bilirubin 2.2-> 1.2 > 0.80 -AST/ALT wnl (4) UTI (urinary tract infection) Current Visit: No Status: Acute Discharge Diagnosis: Urinary tract infection type: site unspecified Hematuria presence: without hematuria Qualified Code(s): N39.0 - Urinary tract infection, site not specified Base Code: N39.0 - URINARY TRACT INFECTION, SITE NOT SPECIFIED Comment: 12/12/18 -WBC 12.8->11.4->8.3, 7.3 this am -procalcitonins demonstrate improvement with change to Zyvox 600mg BID -VSS (5) Facial paralysis/[place] palsy Current Visit: Yes Status: Acute Base Code: 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 Comment: 12/12/18 -right sided Montemayor's Palsy -ICAL contacted and report right sided facial droop for the past year -no unilateral weakness noted (6) Full code status Current Visit: No Status: Acute Base Code: Z78.9 - OTHER SPECIFIED HEALTH STATUS Comment: 12/12/18 -patient remains full code during hospitalization - Disposition Discharge to [facility] PT/OT and nursing in place - Hospitalization Course Disposition: Home Health Service Hospital Course: 83 yo female presents from [facility] for altered mental status with transferring facility suspicion for UTI. Upon arrival via EMS, EMS reported weakness and temp x4 days. PMH Montemayor's Palsy (with surgical intervention), HTN, freq falls, anxiety, and OAB. Temp 99.3, HR 81, BP 139/90, RR 18, 92% RA pain 4/10 WBC 12.8, Hgb 3.8, Hct 43.4, plt 218 Na 137, K 3.3, BUN 11, Cr 0.8, GFR>60, Glucose 152, alk phos 136, bili 2.2 but remaining LFTs unremarkable UA yellow, cloudy, Protein 30, Ketones 15, Buli small, urobili 2, Leuk estrace Mod, RBC 7-10, WBC 16-30 with no epithelial cells Urine culture pending Pt started in Rocephin 1gm QD, and IVF NS 20mEq K @ 75 Admit UTI and altered mental status 12/09/18 Pt is sleepy, easily aroused but confused to time, place, and situation. Mostly alert to self but was not able report her age or year of . Right sided facial droop involving right eyebrow, eye, and mouth. She is handling secretions with no problem. No arm drift noted just generalized weakness and difficulty following verbal instructions. Pt is moving all extremities without difficulty but bruise to right upper arm is note. Urine odor noted and pt has been having issues with incontinence this admission. Dwayne, pt son called this AM. He is DPOA but there is documentation or detailed conversations about code status. Will make pt full code at this time. POC continue Rocephin 1GM q24, K supp x 4 doses. Repeat labs in the AM, awaiting culture results. Continue fall precautions and continue to assess mental status. CT head, CXR, and EKG ordered. Lovenox held until CT head is resulted. 12/11/18: Pt. continue to work with PT/OT, weakness improving. Case management did speak to family regarding poss need for rehab placement. Will continue IV abx and IVF, continue to encourage PO intake. Loose stools persist. 12/12/18: Vyvox changed to PO today, will d/c back to [facility] with [facility] PT/OT and nursing care in place. Pt. and her son are not interested in rehab/swingbed admission for continued care. Son advised to set up f/u with pt's PCP within 1 week of discharge. PCP Deana Procedures: Imaging and X-Rays 12/09/18 10:07 HEAD WO CONTRAST [CT] Stat 12/09/18 10:29 CHEST 2 VIEWS [RAD] Stat Cardiology Procedures 12/09/18 10:08 EKG ONCE Abnormal Labs: Abnormal Lab Results 12/08/18 12/08/18 12/08/18 Range/Units 12:50 13:00 13:00 WBC 12.8 H (4.2-12.2) K/uL Hgb (11.6-16.0) gm/dl MCHC 31.8 L (32-36) g/dl MPV (7.4-10.4) fl Neutrophils % 81.0 H (47-80) % Band Neutrophils % 6.0 H (0-5) % Lymphocytes % (16-45) % Monocytes % (0-9) % Lymphocytes 5.0 L (16-45) % Monocytes (0-9) % Potassium 3.3 L (3.4-4.5) mmol/L Chloride 96 L (98-107) mmol/L Random Glucose 152 H (74-109) mg/dL Calcium (8.8-10.2) mg/dL Total Bilirubin 2.20 H (0.2-1.0) mg/dL Direct Bilirubin (0-0.3) mg/dL Alkaline Phosphatase 136 H (35-104) U/L Total Protein (6.6-8.7) g/dL Albumin 3.8 L (4.0-5.0) g/dL Urine Protein 30 mg/dl H (NEGATIVE) Urine Ketones 15 mg/dl H (NEGATIVE) Urine Bilirubin Small H (NEGATIVE) Urine Urobilinogen 2.0 H (0.20 - 1.00) E.U./dL Ur Leukocyte Esterase Moderate H (NEGATIVE) 12/09/18 12/09/18 12/10/18 Range/Units 05:55 05:55 06:18 WBC (4.2-12.2) K/uL Hgb (11.6-16.0) gm/dl MCHC 31.7 L (32-36) g/dl MPV (7.4-10.4) fl Neutrophils % (47-80) % Band Neutrophils % (0-5) % Lymphocytes % 8.7 L 11.5 L (16-45) % Monocytes % 11.4 H 14.3 H (0-9) % Lymphocytes (16-45) % Monocytes (0-9) % Potassium 3.2 L (3.4-4.5) mmol/L Chloride (98-107) mmol/L Random Glucose (74-109) mg/dL Calcium (8.8-10.2) mg/dL Total Bilirubin (0.2-1.0) mg/dL Direct Bilirubin (0-0.3) mg/dL Alkaline Phosphatase (35-104) U/L Total Protein (6.6-8.7) g/dL Albumin (4.0-5.0) g/dL Urine Protein (NEGATIVE) Urine Ketones (NEGATIVE) Urine Bilirubin (NEGATIVE) Urine Urobilinogen (0.20 - 1.00) E.U./dL Ur Leukocyte Esterase (NEGATIVE) 12/10/18 12/10/18 12/11/18 Range/Units 06:18 06:18 06:39 WBC (4.2-12.2) K/uL Hgb (11.6-16.0) gm/dl MCHC 31.9 L (32-36) g/dl MPV 10.6 H (7.4-10.4) fl Neutrophils % (47-80) % Band Neutrophils % (0-5) % Lymphocytes % (16-45) % Monocytes % (0-9) % Lymphocytes 13.0 L (16-45) % Monocytes 15.0 H (0-9) % Potassium (3.4-4.5) mmol/L Chloride (98-107) mmol/L Random Glucose (74-109) mg/dL Calcium 8.7 L (8.8-10.2) mg/dL Total Bilirubin 1.20 H (0.2-1.0) mg/dL Direct Bilirubin 0.4 H (0-0.3) mg/dL Alkaline Phosphatase 137 H (35-104) U/L Total Protein 5.7 L (6.6-8.7) g/dL Albumin 3.1 L (4.0-5.0) g/dL Urine Protein (NEGATIVE) Urine Ketones (NEGATIVE) Urine Bilirubin (NEGATIVE) Urine Urobilinogen (0.20 - 1.00) E.U./dL Ur Leukocyte Esterase (NEGATIVE) 12/12/18 12/12/18 Range/Units 06:15 06:15 WBC (4.2-12.2) K/uL Hgb 11.2 L (11.6-16.0) gm/dl MCHC 30.7 L (32-36) g/dl MPV (7.4-10.4) fl Neutrophils % (47-80) % Band Neutrophils % (0-5) % Lymphocytes % (16-45) % Monocytes % (0-9) % Lymphocytes 14.0 L (16-45) % Monocytes 13.0 H (0-9) % Potassium (3.4-4.5) mmol/L Chloride (98-107) mmol/L Random Glucose (74-109) mg/dL Calcium 8.6 L (8.8-10.2) mg/dL Total Bilirubin (0.2-1.0) mg/dL Direct Bilirubin (0-0.3) mg/dL Alkaline Phosphatase 205 H (35-104) U/L Total Protein 5.8 L (6.6-8.7) g/dL Albumin 3.1 L (4.0-5.0) g/dL Urine Protein (NEGATIVE) Urine Ketones (NEGATIVE) Urine Bilirubin (NEGATIVE) Urine Urobilinogen (0.20 - 1.00) E.U./dL Ur Leukocyte Esterase (NEGATIVE) Condition at Discharge: (2) Stable Discharge Diagnosis: CAP, UTI VTE Discharge VTE Reason For No Overlap Therapy: Not Indicated Discharge Medications - Discharge Medications Prescriptions: Linezolid 600 mg PO Q12H #5 tablet Home Medications: Ambulatory Orders Amlodipine Besylate [Norvasc] 2.5 mg PO DAILY 09/09/16 [Last Taken 12/07/18] Escitalopram Oxalate [Lexapro] 20 mg PO DAILY 09/09/16 [Last Taken 12/08/18] Acetaminophen [Tylenol] 1,000 mg PO QID 03/02/18 [Last Taken 10/09/18] Hydrochlorothiazide [Hctz] 12.5 mg PO DAILY 03/02/18 [Last Taken 12/08/18] Omeprazole 40 mg PO DAILY 03/02/18 [Last Taken 12/07/18] Carboxymethylcellulose Sodium [Refresh Tears] 1 drop EACH EYE TID 05/03/18 [Last Taken 10/09/18] Polyvinyl Alcohol Opth 15Ml [Akwa Tears] 1 drop OPTH QHS 05/03/18 [Last Taken 10/09/18] Cholecalciferol (Vitamin D3) [Vitamin D3] 2,000 unit PO DAILY 10/09/18 [Last Taken 12/08/18] Hypromellose [Systane Gel] 10 gm OP QHS 10/09/18 [Last Taken 12/07/18] Methyl Salicylate/Menthol [Salonpas Patch] 1 each TP QID PRN 10/09/18 [Last Taken Unknown] Ondansetron HCl [Zofran] 4 mg PO Q8H PRN 10/09/18 [Last Taken Unknown] Valsartan 320 mg PO DAILY 10/09/18 [Last Taken 12/08/18] Aspirin [Aspir-Low] 81 mg PO DAILY 12/08/18 [Last Taken 12/08/18] Ibuprofen 800 mg PO ASDIR 12/08/18 [Last Taken 12/08/18] Mirabegron [Myrbetriq] 50 mg PO DAILY 12/08/18 [Last Taken 12/08/18] Linezolid 600 mg PO Q12H #5 tablet 12/12/18 [Last Taken Unknown] Discharge Plan - Discharge Instructions Activity at Discharge: As Per Physical Therapy Diet at Discharge: Advance to Usual Diet Additional Instructions: Follow up with PCP within 1 week Return to the ED if symptoms worsen, or for any chest pain Quality Measures - Quality Measures Quality Measures: Advance Directives, Documentation of Current Medications in Medical Record, Elder Maltreatment Screen and Follow-Up Plan, Screening for High Blood Pressure and F/U Documented - Current Medications Quality Measure: Measure #130: Documentation of Current Medications Documentation of Current Medications: <Current Medications Documented/Reviewed> [G8427] - Blood Pressure Screening Quality Measure: Screening for High Blood Pressure and Follow-Up Documented Does Patient Have Any of the Following: Active Dx of HTN Blood Pressure Classification: Normal BP Reading Systolic Measurement: 116 Diastolic Measurement: 47 Screening for High Blood Pressure: Patient Exclusion, Hx of HTN [G9744] - Advance Directives Quality Measure: Measure #47: Care Plan Advance Directives Established: No Advance Directives Information Provided To Patient: No Advance Directives on File: No Living Will: No Power of Mat Repairer: Yes Power of Mat Repairer Name: MONALISA VITALE Advance Care Planning: <Care Plan/Decision Maker Documented; Discussed & Documented> [1123F] - Elder Abuse Suspicion Index Screening: Elder Abuse Suspicion Index Screening Rely on people for bathing, dressing, shopping, banking, etc: Yes Prevented from getting food, clothes, medication, etc: No Made to feel shamed or threatened by someone: No Forced to sign papers or use money against will: No Feel afraid, touched in ways not wanted or hurt physically: No Poor eye contact, withdrawn, malnourished, cuts or bruises: No Screening Result: Negative result EASI Reference Information: Gwendolyn RANDOLPH, Grover C, Ani D, Misty Zimmer.Development and validation of a tool to assist physicians identification of elder abuse: The Elder Abuse Suspicion Index (EASI ). Journal of Elder Abuse and Neglect, 2008; 20 (3): 276-300. - Elder Maltreatment Screen Quality Measures: Elder Maltreatment Screen and Follow-Up Plan Elder Maltreatment Screen: <Negative, No Follow-Up Plan Required> [G1446]
== END 2018-12-12 12:47 | disposition home health service (06) | DRG 947 ==
LOC: ER 12:37 → MEDSURG 15:27
PROVIDERS: ADMIT Internal Medicine; ATTEND Internal Medicine
DX: R41.82 Altered mental status, unspecified (principal); J18.9 Pneumonia, unspecified organism; N12 Tubulo-interstitial nephritis, not specified as acute or chronic; N39.0 Urinary tract infection, site not specified; G91.9 Hydrocephalus, unspecified; R17 Unspecified jaundice; R41.0 Disorientation, unspecified; R32 Unspecified urinary incontinence; G51.0 Bell's palsy; N32.81 Overactive bladder; I10 Essential (primary) hypertension; R27.0 Ataxia, unspecified; M15.9 Polyosteoarthritis, unspecified; Z87.891 Personal history of nicotine dependence; Z91.81 History of falling
CPT/HCPCS: 70450; 71046; 80048; 80053; 80076; 81001; 84145; 85025; 85027; 87040; 87427; 87493; 93005; 96365; 99223; 99233; 99239; 99285; J0696; J1650; J1885

== ENCOUNTER 2019-04-18 09:00 | Emergency (ER) | payer MEDICARE ==
--- NOTE | 2019-04-18 09:20 | Emergency Department Record ---
History of Present Illness - General Chief Complaint: Fall Injury Stated Complaint: FALL IN BATHROOM Time Seen by Provider: 04/18/19 09:11 Source: Patient Mode of Arrival: EMS Limitations: No limitations - History of Present Illness Initial Comments: The patient is here due to tripping and falling at [facility] a half hour ago. She did get dizzy prior and was up walking without help which she is not supposed to do. The patient did bump her head but had no LOC. Presently she denies any head or neck pain and also no arm, leg or hip pain. The patient has a hx of frequent falls and does use a walker. She denies any recent illnesses. MD Complaint: Fall Onset/Timin -: Minutes(s) Fall From: Standing When Fall Occurred: Just prior to arrival Fall Witnessed: No Place Fall Occurred: Home Loss of Consciousness: None Prolonged Down Time?: No Symptoms Prior to Fall: None Location: Head Associated Symptoms: Denies - [place] Coma Scale Eye Response: (4) Open spontaneously Motor Response: (6) Obeys commands Verbal Response: (5) Oriented [place] Total: 15 - Related Data Allergies Allergy/AdvReac Type Severity Reaction Status Date / Time Penicillins [PENICILLINS] Allergy Unknown PT UNSURE Verified 04/18/19 09:06 OF REACTION levofloxacin [LEVOFLOXACIN] AdvReac Unknown PAIN IN Verified 04/18/19 09:06 LEGS, UNABLE TO WALK Travel Screening - Travel/Exposure Within Last 30 Days Have you traveled within the last 30 days?: No - Travel/Exposure Within Last Year Have you traveled outside the [place] in the last year?: No - Additonal Travel Details Have you been exposed to anyone with a communicable illness?: No - Travel Symptoms Symptom Screening: None Review of Systems Constitutional: Denies: Chills, Fever Past Medical History - SOCIAL HISTORY Smoking Status: Former smoker Alcohol Use: None Drug Use: None - RESPIRATORY Hx Respiratory Disorders: No - CARDIOVASCULAR Hx Cardio Disorders: Yes Hx Hypertension: Yes - NEURO Hx Neuro Disorders: Yes Hx Dizziness: Yes Comment:: Bels Palsy; Hydrocephalus; ataxic gait; - GI Hx GI Disorders: No - Hx Genitourinary Disorders: No - ENDOCRINE Hx Endocrine Disorders: No Hx Diabetes: No Hx Thyroid Disease: No - MUSCULOSKELETAL Hx Musculoskeletal Disorders: Yes Hx Arthritis: Yes (polyosteoarthritis; osteoporosis) Hx Back Injury: Yes Comment:: pathological fxs - PSYCH Hx Psych Problems: Yes Hx Anxiety: Yes - HEMATOLOGY/ONCOLOGY Hx Hematology/Oncology Disorders: No Family Medical History Any Significant Family History?: Yes Family Hx Comment (NOT TO BE USED IN PLACE OF ITEMS BELOW): unknown Hx Heart Disease: Grandparents Hx Stroke: Mother Physical Exam - General General Appearance: Alert, Oriented x3, Cooperative, No acute distress - Head Head exam: Atraumatic, Normocephalic - Eye Eye exam: Normal appearance, PERRL, EOMI - ENT Throat exam: Normal inspection. negative: Tonsillar erythema, Tonsillar exudate - Neck Neck exam: Normal inspection, Full ROM. negative: Tenderness - Respiratory Respiratory exam: Normal lung sounds bilaterally. negative: Respiratory distress - Cardiovascular Cardiovascular Exam: Regular rate, Normal rhythm, Normal heart sounds - GI/Abdominal GI/Abdominal exam: Soft, Normal bowel sounds. negative: Tenderness - Extremities Extremities exam: Normal inspection, Full ROM, Normal capillary refill. negative: Tenderness - Neurological Neurological exam: Alert. negative: Motor sensory deficit Course Vital Signs 04/18/19 09:07 Temperature 98.7 F Pulse Rate 74 Respiratory 18 Rate Blood Pressure 113/58 Pulse Ox 94 L - Reevaluation(s) Reevaluation #1: The patient is doing very well at this time. She denies any head or neck pain. I did discuss the neg xrays with her and the need for Tylenol for pain. She is up walking normally and ready for home. 04/18/19 10:16 Medical Decision Making - Data Complexity MDM Data: X-Ray Ordered and/or Reviewed - Radiology Data Radiology results: Report reviewed (Head and Cervical CT: Neg for acute changes. ) Disposition Disposition: Discharge Clinical Impression: Fall Qualifiers: Encounter type: initial encounter Qualified Code(s): W19.XXXA - Unspecified fall, initial encounter Disposition: Home, Self-Care Condition: (2) Stable Instructions: Fall Prevention for Older Adults (ED) Additional Instructions: Please use Tylenol for pain and please continue your regular medicines. Please see your doctor next week if not better. Return to the ER for any worsening issues. Forms: Patient Portal Access Time of Disposition: 10:19 Quality - Quality Measures Quality Measures: N/A - Blood Pressure Screening View Details: Yes Does Patient Have Any of the Following: No Blood Pressure Classification: Normal BP Reading Systolic Measurement: 113 Diastolic Measurement: 58 Screening for High Blood Pressure: < Normal BP, F/U Not Required > [G4481]
--- NOTE | 2019-04-18 10:05 | CT SCAN REPORT ---
EXAMINATION: CT Head without IV Contrast EXAM DATE: 04/18/2019 9:54 AM TECHNIQUE: Standard protocol CT images of the head were obtained without intravenous contrast. Dexter l and sagittal reconstructed images were created. INDICATION: trauma COMPARISON: 12/16/2018 HAND DOMINANCE: Unknown. ENCOUNTER: Not applicable FINDINGS: 1. There is no intracranial mass, midline shift, extraaxial fluid collection or hemorrhage. 2. Cerebral atrophy commensurate patient's age. Moderate chronic white matter ischemic demyelination bilaterally. Ventricles unchanged in size. Right posterior parietal ventriculostomy tube unchanged i n position. 3. There are no suspicious area of altered attenuation. 4. There is no fracture. 5. The visualized aspects of the orbits, paranasal sinuses, and left mastoid air cells are normal. R ight mastoidectomy IMPRESSION: 1. No acute intracranial abnormality, follow-up MRI if symptoms persist 2. Right mastoidectomy Dictated by: Kade Yarbrough MD on 04/18/2019 10:00 AM. .
--- NOTE | 2019-04-18 10:10 | CT SCAN REPORT ---
EXAMINATION: CT Cervical Spine without IV Contrast EXAM DATE: 04/18/2019 9:53 AM TECHNIQUE: Standard protocol cervical spine CT imaging was performed without intravenous contrast. Co lindsey and sagittal images were reconstructed. INDICATION: trauma COMPARISON: 12/16/2018 ENCOUNTER: Not applicable FINDINGS: Stable vertebral body heights and alignment. Craniocervical junction unremarkable. Stable ununited os sification center odontoid. Interspace narrowing C4-C7 with mild anterior posterior spurring. C2-C3 r ight facet thank you lordosis. Bilateral degenerative hypertrophic facet arthropathy. Chronic T3 comp ression deformity. Bony canal is well-maintained. Prevertebral soft tissues are unremarkable. Right m astoidectomy. IMPRESSION: 1. No acute fracture, diffuse spondylitic changes described. Follow-up MRI if symptoms persist 2. Stable chronic T3 compression deformity Dictated by: Kade Yarbrough MD on 04/18/2019 10:04 AM. .
== END 2019-04-18 10:57 | disposition home or self-care (01) ==
LOC: ER 09:00
DX: S09.90XA Unspecified injury of head, initial encounter (principal); R42 Dizziness and giddiness; I10 Essential (primary) hypertension; W18.00XA Striking against unspecified object with subsequent fall, initial encounter; Z91.81 History of falling; Y92.121 Bathroom in nursing home as the place of occurrence of the external cause
CPT/HCPCS: 70450; 72125; 99283